=== PATIENT | female | born 1950 | race Caucasian/White ===

== ENCOUNTER → 2022-02-15 | Outpatient (CLI) | payer MEDICARE, SELFPAY ==
[2022-02-15 15:17] LABS: Absolute Lymphocyte Count 1.85 X10^3/uL (0.83-4.51); Absolute Neutrophil Count 6.4 X10^3/uL (2.0-7.7); Basophil# 0.05 X10^3/uL; Basophil% 0.6 % (0-1); Eosinophil# 0.12 X10^3/uL; Eosinophils% 1.4 % (0-5); Hematocrit 46.2 % (37-47); Lymphocyte # 1.85 X10^3/ul (0.83-4.51); Lymphocyte % 21.1 % (19-41); Mean Corp Hgb Conc 32.5 g/dL (32-36); Mean Corpuscular Hgb 27.9 pg (27.0-32.0); Mean Corpuscular Volume 85.9 fL (81-99); Monocyte# 0.35 X10^3/uL; NRBC Flagged by Analyzer 0 % (0-5); Neutrophil # 6.36 X10^3/uL (2.7-7.7); Neutrophil % 72.7 % (47-70); Platelet Count 240 K/mm3 (150-450); RBC Distribution Width CV 14.8 % (11.6-14.6); RBC Distribution Width SD 46.9 fl (35.1-43.9); Red Blood Count 5.38 M/mm3 (4.2-5.4); White Blood Count 8.8 K/mm3 (4.4-11.0)
[2022-02-15 15:38] LABS: Vitamin B12 441 pg/mL (211-911); Vitamin D,25 Hydroxy 26.7 ng/mL
[2022-02-15 15:40] LABS: ALB/GLOB Ratio 0.9 RATIO (0.9-2.4); AST(SGOT) 21 U/L (15-37); Alanine Aminotransfer ALT/SGPT 29 U/L (13-56); Albumin, Serum 3.7 g/dL (3.2-5.0); Alkaline Phosphatase 111 U/L (45-117); Anion Gap 6 (5-15); BUN 16 mg/dL (7-18); BUN/Creat Ratio 19.3 RATIO (10-20); Calcium,Total 9.7 mg/dL (8.5-10.1); Chloride 102 mmol/L (98-107); Cholesterol 136 mg/dL (200); Creatinine, Serum 0.83 mg/dL (0.55-1.02); EST Glomerular Filtration Rate 72 mL/min (>60); Est Glom Filt Rate - Afr Amer 88 mL/min (>60); Globulin 3.9 g/dL (2.2-4.2); Glucose 188 mg/dL (74-106); High Density Lipoprotein 39 mg/dL; Protein, Total 7.6 g/dL (6.4-8.2); Sodium Level 136 mmol/L (136-145); Triglycerides 137 mg/dL; Very Low Density Lipoprotein 27 mg/dL (5-40)
== END | disposition home or self-care (01) ==
PROVIDERS: PCP Family Medicine; Referring Provider Family Medicine; Visit Provider Family Medicine
DX: I10 Essential (primary) hypertension (principal); E11.9 Type 2 diabetes mellitus without complications; E78.5 Hyperlipidemia, unspecified; K21.9 Gastro-esophageal reflux disease without esophagitis; M81.0 Age-related osteoporosis without current pathological fracture
CPT/HCPCS: 36415; 80053; 80061; 82306; 82607; 85025

== ENCOUNTER → 2022-03-15 | Outpatient (CLI) | payer MEDICARE, SELFPAY | END | disposition home or self-care (01) | LOC: LABSPEC 15:14 | PROVIDERS: PCP Family Medicine; Visit Provider Family Medicine | DX: Z20.822 Contact with and (suspected) exposure to COVID-19 (principal) | CPT/HCPCS: 87635; U0003; U0005 ==

== ENCOUNTER → 2022-07-04 | Outpatient (CLI) | payer MEDICARE, SELFPAY ==
--- NOTE | 2022-07-04 11:14 | RAD_ITS ---
EXAM: XR CHEST, 2 VIEWS CLINICAL INDICATION: COUGH TECHNIQUE: Frontal and lateral views of the chest. This report was created using [employer] report generation technology. COMPARISON: None. FINDINGS: LUNGS AND PLEURAL SPACES: Unremarkable. No consolidation or edema. No pneumothorax. No effusion. HEART: Unremarkable. Cardiac silhouette not enlarged. MEDIASTINUM: Central airways and mediastinal contour are unremarkable. BONES/JOINTS: Degenerative changes of the spine. SOFT TISSUES: Unremarkable. VASCULATURE: Atherosclerotic calcifications of the nonenlarged thoracic aortic arch. RAD/Chest PA and Lateral IMPRESSION: No acute cardiopulmonary disease. Electronically Signed: Franklin Davidson MD at 0:52 EST ,
== END | disposition home or self-care (01) ==
LOC: MTRAD 11:13
PROVIDERS: PCP Family Medicine; Referring Provider Family Medicine; Visit Provider Family Medicine
DX: R05.9 Cough, unspecified (principal)
CPT/HCPCS: 71046

== ENCOUNTER 2023-03-12 20:12 | Emergency (ER) | payer MEDICARE, SELFPAY ==
[2023-03-12 20:13] VITALS: BP 168/69; PULSE 69; RESP 16; TEMP 36.4; O2SAT 99; BMI 28.3
--- NOTE | 2023-03-12 20:31 | RAD_ITS ---
STUDY: XR Hand Min 3 Views REASON FOR EXAM: Female, 73 years old. injury TECHNIQUE: XR Hand Min 3 Views LEFT COMPARISON: None. FINDINGS: Normal radiocarpal articulation. Normal distal radioulnar joint. Normal visualized carpal bones. Normal carpal articulations There is degenerative arthrosis of the carpometacarpal (CMC) articulation of the thumb. Normal second through fifth carpometacarpal joints. Fracture of the distal aspect of the fifth metacarpal bone. Normal metacarpophalangeal joint of the thumb. Normal interphalangeal joint of the thumb. Normal proximal and distal phalanges of the thumb. Normal metacarpophalangeal joints of the second through fifth fingers. Normal proximal and distal interphalangeal joints of the second through fifth fingers. Normal phalanges of the second through fifth fingers. The soft tissue structures are unremarkable. RAD/Hand Min 3 Views IMPRESSION: There is degenerative arthrosis of the carpometacarpal (CMC) articulation of the thumb. Fracture of the distal aspect of the fifth metacarpal bone. Electronically Signed: Kamran Wood MD at 21:06 EDT Reading Location ID and State: [facility] / [place] , Service support ,
--- NOTE | 2023-03-12 21:28 | EDS_ITS ---
HPI <RENETTA Olmstead - Last Filed: 03/12/23 22:05> History of Present Illness Chief Complaint: Upper Extremity Injury Narrative Narrative: Patient is a 73-year-old female with history of hypertension, obesity, diabetes who presents the emergency department after mechanical fall. Patient fell on her left arm. She did strike the front of her head however she denies any LOC and states it was minor. Patient's biggest complaint that brought her to the emergency department was pain to her left hand. She states she has pain to the left fifth and fourth fingers. Patient denies any other significant injury. Patient does have minor skin tears. [facility] <RENETTA Olmstead - Last Filed: 03/12/23 22:05> [facility] Medical History (Updated 03/12/23 @ 22:02 by RENETTA Olsmtead) Asthma Heart murmur Hypertension Ovarian cancer Type 2 diabetes mellitus Uterine cancer Home Medications oxycodone-acetaminophen 5 mg-325 mg tablet (Percocet) 1 tab PO Q8H PRN pain 3 days #10 tabs 03/12/23 [Rx Last Taken Unknown] Allergy/AdvReac Type Severity Reaction Status Date / Time matty Allergy Severe Anaphylaxis Verified 03/12/23 21:47 mushroom Allergy Severe Anaphylaxis Verified 03/12/23 21:47 fluconazole [From Diflucan] Allergy Hives Verified 03/12/23 21:47 isosorbide [From Imdur] AdvReac Other Verified 03/12/23 21:47 SURGICAL DIANE Allergy Intermediate INFECTION Uncoded 03/12/23 21:47 Social History Smoking Status: Current every day smoker tobacco type: cigarettes ROS <RENETTA Olmstead - Last Filed: 03/12/23 22:05> ROS ED ROS Narrative Constitutional: Negative for fever, chills, weight loss, weakness Eyes: Negative for vision loss, vision change, double vision ENT: Negative for any sore throat, ear pain, congestion Cardiovascular: Negative for any chest pain, tightness, palpitations Respiratory: Negative for any cough, sputum production, hemoptysis, dyspnea, dyspnea on exertion, orthopnea Gastrointestinal: Negative for any abdominal pain, nausea, vomiting, diarrhea, constipation, blood in stool, blood in vomit : Negative for any urinary frequency, dysuria, retention, blood in urine Muscle skeletal: Negative for any muscle joint pain, stiffness, myalgias, arthralgias, neck pain, back pain. Positive left hand pain Neurological: Negative for any headache, syncope, numbness or tingling, dizziness Skin: Negative for any rashes, lumps, itching, abrasions, lacerations. Positive superficial skin tears Psychiatric: Negative for any depression, anxiety, stress, suicidal ideation, homicidal ideation Hematologic: Negative for any easy bruising, excessive bruising, easy bleeding Allergies: Negative for any eczema, hives, rash EXAM <RENETTA Olmstead - Last Filed: 03/12/23 22:05> Physical Exam Narrative Exam Narrative: Vital signs reviewed. HEET: Head normocephalic atraumatic, TMs clear bilaterally. Posterior pharynx is clear, moist mucous membranes. Nares clear bilaterally. Neck: Supple with no lymphadenopathy or tenderness. No signs of meningismus, negative jolt sign. Cardiac: Regular rate and rhythm no murmurs gallops or rubs, equal peripheral pulses bilaterally. Respiratory: Lungs clear to auscultation bilaterally. No chest tenderness. Abdomen: Soft, nontender, nondistended. No abdominal bruit or pulsatile masses. No hepatosplenomegaly Extremities: Patient has significant pain to the left fifth and fourth metacarpals. Patient does have full range of motion of the fingers of this does cause significant discomfort. Patient does have skin tear to the palmar aspect of the hand as well as the left forearm. These are superficial. Patient is no neurological focal deficit. Neuro: Cranial nerves II through XII intact, no focal neurological deficits. Skin: Clean dry and intact with no rash, purpura, petechiae, vesicles or pustules. Backs/flank: No CVA tenderness, no midline spinal tenderness, no deformity. Psych: Normal mood and affect. No SI, HI or acute psychosis. Const Vital Signs: 03/12/23 20:13 Temperature 97.5 F L Temperature Source Temporal Pulse Rate 69 Respiratory Rate 16 Blood Pressure 168/69 H Blood Pressure Mean 102 Pulse Ox 99 MDM <RENETTA Olmstead - Last Filed: 03/12/23 22:05> MDM Radiography Diagnostic Testing: Clinical Impression(s) from Imaging Studies Hand X-Ray 03/12/23 20:31 IMPRESSION: There is degenerative arthrosis of the carpometacarpal (CMC) articulation of the thumb. Fracture of the distal aspect of the fifth metacarpal bone. Electronically Signed: Kamran Wood MD at 21:06 EDT , Treatment and Re-Evaluation Narrative: Patient appears generally well, patient appears nontoxic, vital signs are stable.Patient presents to the emergency department with complaints of left hand pain following a mechanical fall. Patient did receive three-view x-rays of the left hand. X-rays inter by ER physician shows that there is a degenerative arthrosis of the carpometacarpal articulation of the thumb. Patient has a fr acture of the distal aspect of the fifth metacarpal bone. There appears to be no angulation. Patient will be given Percocet. Patient will be placed in an ulnar gutter splint. Patient will need to follow-up with orthopedics. Post splint, patient did have no neurological focal deficit. Patient adequate sensation of the fingers as well as capillary refill less than 3 seconds. <Dr. Adam Cunnnigham MD - Last Filed: 03/12/23 23:39> [facility] MDM Narrative Medical decision making narrative: I have personally performed a face to face assessment of the patient and have reviewed the ROBY Note. I performed a substantive portion of the visit including all aspects of the following. My otoole findings include: History is remarkable for mechanical fall landing on her left hand. She is right-hand dominant. She denies paresthesia, anesthesia medics. She denies head trauma. Denies neck pain. She is not on anticoagulant. Exam is pain the patient over the neck of the fifth metacarpal bone left hand. There is no rotational malalignment. Median, radial and ulnar function intact. Capillary refill is normal. Medical Decision Making x-ray was obtained. X-ray was independently reviewed interpreted by me as positive for a nondisplaced nonangulated fracture involving the neck of the fifth metacarpal. Other additions or changes: Patient was placed in a short arm ulnar gutter splint. This was performed by the nurse practitioner under my supervision. Procedures <RENETTA Olmstead - Last Filed: 03/12/23 22:05> Upper Extremity Splints Upper Extremity Splint: Orthoglass and Ulnar gutter <Dr. Adam Cunningham MD - Last Filed: 03/12/23 23:39> Upper Extremity Splints Splint Fabrication: Fabricated Location: Left Discharge Plan Triage Chief Complaint: Upper Extremity Injury ED Midlevel Provider: David Pollard ED Provider: Adam Cunningham Dx/Rx/DC Orders Clinical Impression: Fall, Closed hand fracture Instructions: ED Fracture, Upper Extremity, ED Closed Hand Fracture (Adult) Prescriptions: New oxycodone-acetaminophen [Percocet] 5-325 mg tablet 1 tab PO Q8H PRN (Reason: pain) 3 Days Qty: 10 0RF Primary Care Provider: Rosa Santiago Referrals: Rosa Santiago DO [Primary Care Provider] - Jame Mane DO [Med Staff - Active Staff] - Activity Restrictions/Additional Instructions: This is a temporary cast. Need to follow-up with orthopedics this upcoming week. The pain medicine as needed. Disposition Disposition: Home, Self Care Discharge Date/Time: 03/12/23 22:37
[2023-03-12] MEDS: Oxycodone/Apap 5/325 Tablet PO (21:55)
[2023-03-12] MEDS: Diphth,Pertuss(Acell),Tet Vac 0.5 ML Vial IM (22:17)
[2023-03-12 22:20] VITALS: BP 173/60; PULSE 58; RESP 18; O2SAT 96
== END 2023-03-12 22:37 | disposition home or self-care (01) ==
PROVIDERS: Emergency Provider Emergency Medicine; PCP Family Medicine; Visit Provider Emergency Medicine
DX: S62.92XA Unspecified fracture of left hand, initial encounter for closed fracture (principal); F17.210 Nicotine dependence, cigarettes, uncomplicated; E66.9 Obesity, unspecified; W19.XXXA Unspecified fall, initial encounter
CPT/HCPCS: 29125; 73130; 90715; 99283

== ENCOUNTER → 2023-05-09 | Outpatient (CLI) | payer MEDICARE, SELFPAY ==
--- NOTE | 2023-05-09 12:47 | BI_ITS ---
MAMMOGRAPHY - BILATERAL SCREENING REASON FOR EXAM: Female, 73 years old. Routine annual screening examination. PERTINENT HISTORY: Sister with breast cancer. TECHNIQUE: Digital bilateral breast stuart (3D mammographic acquisition) in the CC and MLO projections. 2-D mediolateral oblique (MLO) and craniocaudad (CC) views of both breasts were obtained. CAD: Full Field Digital Mammography with Computer Added Detection was performed. COMPARISON: Comparison is made with prior outside examination dated April 08, 2020. FINDINGS: Breast Composition: The breasts are heterogeneously dense, which may obscure small masses. There are no dominant masses or suspicious calcifications. Stable 7.2 mm nodule in the deep upper lateral aspect of the right breast. Correlation with ultrasound is recommended. No other significant abnormalities are identified. There has been no significant change since the prior study. BI/SCRN MAMM (CAD)W/STUART BILAT IMPRESSION: Stable 7.2 mm nodule in the deep upper lateral aspect of the right breast suggestive of a small lymph node. Correlation with ultrasound is recommended. ASSESSMENT CATEGORY: BIRADS Category 0: Incomplete. Need additional imaging evaluation. A letter regarding these results will be sent to the patient by the facility within 30 days. Approximately 10% of breast cancers are not detected by mammography. A normal mammogram should not delay biopsy of a clinically suspicious abnormality. [id number] Electronically Signed: Emmanuel Lentz MD at 10:52 EDT ,
== END | disposition home or self-care (01) ==
LOC: OPBI 12:47
PROVIDERS: PCP Family Medicine; Referring Provider Nurse Practitioner Family; Visit Provider Nurse Practitioner Family
DX: Z12.31 Encounter for screening mammogram for malignant neoplasm of breast (principal); Z80.3 Family history of malignant neoplasm of breast
CPT/HCPCS: 77063; 77067

== ENCOUNTER → 2023-05-11 | Outpatient (CLI) | payer MEDICARE, SELFPAY ==
--- NOTE | 2023-05-11 13:55 | US_ITS ---
STUDY: ULTRASOUND BREAST - RIGHT REASON FOR EXAM: Female, 73 years old. Abnormal screening mammogram. TECHNIQUE: Axial and longitudinal images of the RIGHT breast were performed with a high resolution ultrasound transducer. # OF IMAGES: 26 COMPARISON: Comparison is made with prior mammogram dated May 09, 2023. FINDINGS: RIGHT Breast: The upper outer quadrant of the right breast was examined. There is a 7 mm x 9 mm x 5 mm hypoechoic nodule with central fatty hilum suggestive of a lymph node. This is at the 10:00 position breast at 13 cm from the nipple. US/Breast Limited Unilateral IMPRESSION: The mammographic abnormality corresponds to a small lymph node. ASSESSMENT CATEGORY: BIRADS Category 2: Benign. A letter regarding these results will be sent to the patient by the facility within 30 days. Electronically Signed: Emmanuel Lentz MD at 15:35 EDT ,
== END | disposition home or self-care (01) ==
LOC: OPUS 13:54
PROVIDERS: PCP Family Medicine; Referring Provider Nurse Practitioner Family; Visit Provider Nurse Practitioner Family
DX: R92.8 Other abnormal and inconclusive findings on diagnostic imaging of breast (principal); N63.11 Unspecified lump in the right breast, upper outer quadrant
CPT/HCPCS: 76642

== ENCOUNTER 2023-05-23 11:49 | Outpatient (CLI) | payer MEDICARE, SELFPAY ==
[2023-05-23 15:34] LABS: Vitamin B12 425 pg/mL (211-911)
[2023-05-23 15:40] LABS: ALB/GLOB Ratio 0.9 RATIO (0.9-2.4); AST(SGOT) 29 U/L (15-37); Alanine Aminotransfer ALT/SGPT 40 U/L (13-56); Albumin, Serum 3.6 g/dL (3.2-5.0); Alkaline Phosphatase 148 U/L (45-117); Anion Gap 5 (5-15); BUN 14 mg/dL (7-18); BUN/Creat Ratio 21.3 RATIO (10-20); Calcium,Total 9.5 mg/dL (8.5-10.1); Chloride 101 mmol/L (98-107); Cholesterol 157 mg/dL (200); Creatinine, Serum 0.66 mg/dL (0.55-1.02); EST Glomerular Filtration Rate 94 mL/min (>60); Est Glom Filt Rate - Afr Amer 114 mL/min (>60); Ferritin 29 ng/mL (8-252); Globulin 3.8 g/dL (2.2-4.2); Glucose 261 mg/dL (74-106); High Density Lipoprotein 54 mg/dL; Potassium 3.8 mmol/L (3.5-5.1); Protein, Total 7.4 g/dL (6.4-8.2); Sodium Level 135 mmol/L (136-145); Triglycerides 123 mg/dL; Very Low Density Lipoprotein 25 mg/dL (5-40)
== END 2023-05-23 23:59 | disposition home or self-care (01) ==
LOC: MFPLAB 11:50
PROVIDERS: PCP Family Medicine; Visit Provider Family Medicine
DX: E11.9 Type 2 diabetes mellitus without complications (principal); K21.9 Gastro-esophageal reflux disease without esophagitis; R79.89 Other specified abnormal findings of blood chemistry; E78.5 Hyperlipidemia, unspecified
CPT/HCPCS: 36415; 80053; 80061; 82607; 82728

== ENCOUNTER → 2023-06-22 | Outpatient (CLI) | payer MEDICARE, SELFPAY ==
--- NOTE | 2023-06-22 14:14 | BD_ITS ---
STUDY: DUAL ENERGY X-RAY ABSORPTIOMETRY / DXA REASON FOR EXAM: Female, 73 years old. M81.0 TECHNIQUE: Bone Mineral Density (BMD) measurements of lumbar spine and bilateral hips were obtained. COMPARISON: None. FINDINGS: Lumbar Spine (L1-L4): g/cm2 (0.811) / T-score (-2.1) / Z-score (0.1) Findings are suggestive of osteopenia with a high fracture risk. Left Femur Total: g/cm2 (0.759) / T-score (-1.5) / Z-score (0.1) Left Femoral Neck: g/cm2 (0.683) / T-score (-1.5) / Z-score (0.4) Right Femur Total: g/cm2 (0.765) / T-score (-1.5) / Z-score (0.2) Right Femoral Neck: g/cm2 (0.612) / T-score (-2.1) / Z-score (-0.2) BD/Dexa Bone Density Study IMPRESSION: The patient is considered osteopenic as outlined below according to World Ross Organization (WHO) criteria with a high fracture risk. Reference Information: The T-score is the number of standard deviations above or below the standard which is normal for young adults at their peak bone mineral density. The World Health Organization (WHO) interprets the T-scores as follows: Above -1 Normal bone density Between -1 and -2.5 Osteopenia Equal to / or below -2.5 Osteoporosis As a practical clinical guideline, osteopenia may be graded as follows: Mild -1 through -1.5 Moderate -1.6 through -2.0 Severe -2.1 through -2.4 The Z-score is the number of standard deviations above or below age-matched controls. A Z-score of less than -1.5 would be considered abnormal. References: 1. NIH Osteoporosis and Related Bone Diseases www osteo.org 2. International Society for Clinical Densitometry www iscd.org 3. National Osteoporosis Foundation www nof.org Electronically Signed: Emmanuel Lentz MD at 13:35 EST ,
== END | disposition home or self-care (01) ==
LOC: OPBD 14:06
PROVIDERS: PCP Family Medicine; Referring Provider Family Medicine; Visit Provider Family Medicine
DX: M81.0 Age-related osteoporosis without current pathological fracture (principal)
CPT/HCPCS: 77080

== ENCOUNTER → 2023-10-11 | Outpatient (CLI) | payer MEDICARE, SELFPAY ==
--- NOTE | 2023-10-11 14:05 | RAD_ITS ---
EXAM: XR CHEST, 2 VIEWS CLINICAL INDICATION: murmur TECHNIQUE: Frontal and lateral views of the chest. COMPARISON: 07/04/2022 FINDINGS: LUNGS AND PLEURAL SPACES: Hyperinflated lungs suggesting COPD without evidence of focal pneumonia. No pneumothorax. No effusion. HEART: No significant abnormality. Cardiac silhouette not enlarged. MEDIASTINUM: Central airways and mediastinal contour are unremarkable. BONES/JOINTS: Degenerative changes in the spine and shoulders. No acute fracture. SOFT TISSUES: No significant abnormality. VASCULATURE: Atherosclerosis. RAD/Chest PA and Lateral IMPRESSION: Hyperinflated lungs suggesting COPD without evidence of focal pneumonia. Electronically Signed: Claude Serrano DO at 23:38 EDT ,
[2023-10-11 14:38] LABS: Absolute Lymphocyte Count 2.32 X10^3/uL (0.83-4.51); Absolute Neutrophil Count 5.6 X10^3/uL (2.0-7.7); Basophil# 0.09 X10^3/uL; Eosinophil# 0.48 X10^3/uL; Eosinophils% 5.3 % (0-5); Hematocrit 43.4 % (37-47); Hemoglobin 13.7 g/dL (12.0-15.0); Lymphocyte # 2.32 X10^3/ul (0.83-4.51); Lymphocyte % 25.7 % (19-41); Mean Corp Hgb Conc 31.6 g/dL (32-36); Mean Corpuscular Hgb 27.5 pg (27.0-32.0); Mean Platelet Vol. 11.3 fl (6.2-12.0); Monocyte# 0.47 X10^3/uL; Monocyte% 5.2 % (0-10); NRBC Flagged by Analyzer 0 % (0-5); Neutrophil # 5.64 X10^3/uL (2.7-7.7); Neutrophil % 62.7 % (47-70); Platelet Count 250 K/mm3 (150-450); RBC Distribution Width CV 13.9 % (11.6-14.6); RBC Distribution Width SD 44.7 fl (35.1-43.9); Red Blood Count 4.99 M/mm3 (4.2-5.4)
[2023-10-11 14:57] LABS: Anion Gap 4 (5-15); BUN 13 mg/dL (7-18); Calcium,Total 9.4 mg/dL (8.5-10.1); Chloride 103 mmol/L (98-107); Creatinine, Serum 0.72 mg/dL (0.55-1.02); EST Glomerular Filtration Rate 84 mL/min (>60); Est Glom Filt Rate - Afr Amer 102 mL/min (>60); Glucose 126 mg/dL (74-106); Potassium 3.4 mmol/L (3.5-5.1); Sodium Level 137 mmol/L (136-145)
== END | disposition home or self-care (01) ==
PROVIDERS: PCP Family Medicine; Referring Provider Internal Medicine Cardiovascular Disease; Visit Provider Internal Medicine Cardiovascular Disease
DX: R07.9 Chest pain, unspecified (principal); R01.1 Cardiac murmur, unspecified
CPT/HCPCS: 71046; 80048; 85025

== ENCOUNTER 2023-10-14 00:05 | Emergency (ER) | payer MEDICARE, SELFPAY ==
[2023-10-14 00:07] VITALS: BP 170/94; PULSE 74; RESP 16; TEMP 36.8; O2SAT 95; BMI 33.3
--- NOTE | 2023-10-14 00:39 | CT_ITS ---
INDICATION: head injury EXAMINATION: CT BRAIN - CT Head or Brain W/O Contrast Injection TECHNIQUE: Serial CT axial images were obtained of the head without intravenous contrast. A radiation dose optimization technique was used for this scan. COMPARISON: None. Findings: Serial CT axial images of the head without contrast. BRAIN PARENCHYMA: Diffuse periventricular hypoattenuation likely chronic white matter ischemic changes. Moderate diffuse volume loss. No evidence of intraparenchymal hemorrhage or hyperattenuating extra-axial fluid collection. VASCULAR STRUCTURES: Atherosclerotic vascular calcifications. BONES: Paranasal sinuses are clear. SCALP/REMAINING SOFT TISSUES: Right frontal scalp hematoma. ASPECTS Score for Acute Strokes, if applicable: 10 CT/Brain/Head without Contrast IMPRESSION: Age-related changes as above, without evidence of acute intracranial hemorrhage in this noncontrast head CT. Scalp injury. Electronically Signed: Mack Alvarez MD at 1:39 EDT ,
--- NOTE | 2023-10-14 01:13 | EDS_ITS ---
HPI History of Present Illness Chief Complaint: Fall Informant: patient, spouse/S.O. and family Narrative Narrative: Patient is a 73-year-old female with past medical history of asthma hypertension and type 2 diabetes. She states roughly half hour prior to arrival she was walking into her bathroom when she tripped and fell. She states she struck the bathroom floor with her head/face. She denies any loss of consciousness. She denies any history of bleeding disorder or blood thinner use and states she only takes a baby aspirin daily. Since that time she reports mild headache and bruising/soft tissue swelling but denies light sensitivity change in vision or nausea or vomiting. She also states she was able to ambulate without difficulty but secondary to the fall with head trauma there was concern for underlying injury and she was brought in for evaluation [facility] Medical History Asthma Chest pain H/O esophageal reflux Heart murmur Hernia of abdominal cavity History of ankle fracture History of fracture of right ankle Hx of myocardial infarction Hypertension Migraine Morbid obesity Nonalcoholic liver disease, chronic Osteoporosis Ovarian cancer Syncope and collapse Type 2 diabetes mellitus Urge incontinence Uterine cancer Home Medications aspirin 81 mg tablet,delayed release 81 mg PO DAILY 03/16/23 [History Last Taken Unknown] albuterol sulfate 90 mcg/actuation aerosol inhaler 2 puff inhalation Q6H PRN 09/15/23 [History Last Taken Unknown] atorvastatin 40 mg tablet 40 mg PO DAILY 09/15/23 [History Last Taken Unknown] cholecalciferol (vitamin D3) 125 mcg (5,000 unit) capsule 125 mcg PO DAILY 09/15/23 [History Last Taken Unknown] insulin aspart U-100 100 unit/mL subcutaneous solution (Novolog U-100 Insulin aspart) 1 sliding scale dose subcut USEASDIRECTD 09/15/23 [History Last Taken Unknown] insulin degludec 100 unit/mL (3 mL) subcutaneous pen (Tresiba FlexTouch U-100 insulin) 13 unit subcut QHS 09/15/23 [History Last Taken Unknown] losartan 50 mg-hydrochlorothiazide 12.5 mg tablet 1 tab PO DAILY 09/15/23 [History Last Taken Unknown] oxybutynin chloride 10 mg tablet,extended release 24 hr 10 mg PO DAILY 09/15/23 [History Last Taken Unknown] pantoprazole 40 mg tablet,delayed release 40 mg PO DAILY 09/15/23 [History Last Taken Unknown] propranolol 20 mg tablet 20 mg PO DAILY PRN 09/15/23 [History Last Taken Unknown] sertraline 50 mg tablet 50 mg PO DAILY 09/15/23 [History Last Taken Unknown] potassium chloride 10 mEq capsule,extended release 10 meq PO DAILY #90 caps 10/11/23 [Rx Last Taken Unknown] vitamins A,C,F-okqe-rqqmsp 4,296 mcg-226 mg-90 mg capsule (PreserVision AREDS) 1 cap PO BID 10/11/23 [History Last Taken Unknown] azithromycin 250 mg tablet (Zithromax Z-Donny) See Rx Instructions PO .COMPLEX #6 tabs 10/13/23 [Rx Last Taken Unknown] Allergy/AdvReac Type Severity Reaction Status Date / Time matty Allergy Severe Anaphylaxis Verified 10/14/23 00:07 mushroom Allergy Severe Anaphylaxis Verified 10/14/23 00:07 fluconazole [From Diflucan] Allergy Hives Verified 10/14/23 00:07 isosorbide [From Imdur] AdvReac Other Verified 10/14/23 00:07 SURGICAL DIANE Allergy Intermediate INFECTION Uncoded 10/11/23 13:03 Family History Other Cancer Hypertension Myocardial infarction Surgical History History of cataract extraction Social History Smoking Status: Light Smoker (<10/day) alcohol intake: never ROS ROS ED Constitutional Constitutional ED: Denies chills or fever(s) Eyes Eyes: Denies blurry vision, change in vision or diplopia ENT ENT ED: Denies sore throat Cardiovascular Cardiovascular: Denies chest pain, palpitations or racing heartbeat Respiratory/Chest Respiratory/Chest: Denies cough or dyspnea Gastrointestinal Gastrointestinal: Denies abdominal pain, diarrhea, nausea or vomiting Genitourinary Genitourinary ED: Denies dysuria Musculoskeletal Musculoskeletal: Denies back pain, myalgias or neck pain Integumentary Reports other Details: Positive soft tissue swelling/bruising ; Denies rash Neurologic Neurologic: Reports headache(s); Denies paresthesias or weakness Hematologic/Lymphatic Hematologic/Lymphatic: Denies easy bleeding or easy bruising EXAM Physical Exam Const Vital Signs: 10/14/23 00:07 10/14/23 00:07 10/14/23 01:37 Temperature 98.2 F 98.3 F Temperature Source Temporal Pulse Rate 74 89 Respiratory Rate 16 12 Respiratory Effort Normal Respiratory Depth Normal Respiratory Pattern Normal Blood Pressure 170/94 H 133/69 H Blood Pressure Mean 119 90 Pulse Ox 95 100 Oxygen Delivery Method Room Air Room Air Positive well nourished and well developed General Appearance ED: well developed HEENT HEENT Narrative: Patient has a 2 x 2 centimeter area of hematoma and ecchymosis just above the right eye along the lower right frontal bone. This is consistent with her history of fall/trauma. Otherwise no signs of depressed or basilar skull fracture No septal hematoma Eyes PERRL and EOMs intact bilaterally Eyes Narrative: No hyphema Neck supple Neck Narrative: No bony deformity or step-off of the cervical spine no midline pain with palpation Patient can move her neck in all directions without pain Chest Wall palpation of chest normal Chest Narrative: No bony deformity or crepitance noted Resp normal respiratory effort and clear to auscultation bilaterally Cardio regular rate and regular rhythm Rate: other Other Details: Heart is regular rate and rhythm with a grade 4 out of 6 holosystolic murmur GI normal to inspection, nondistended, normoactive bowel sounds, non-tender, non- distended and no masses Auscultation: normoactive bowel sounds Palpation: soft Back/Spine Back/Spine Narrative: No bony deformity or step-off of the thoracic or lumbar spine No midline pain on palpation Extremity normal to inspection Extremity Narrative: Pelvis is stable there is no shortening or external rotation of either lower extremity Patient has mild soft tissue swelling ecchymosis to the anterior aspect of the left knee. However no obvious bony deformity or joint effusion. No ligamentous or tendon injury noted. No pain on palpation Patient is able to move all extremities without difficulty or pain Neuro oriented x3, CN's II-XII intact bilaterally and no sensory deficits noted Sensorium / Orientation: alert Motor Exam: strength 5/5 throughout Psych mental status grossly normal Skin Skin Narrative: Soft tissue swelling ecchymosis to the right forehead/frontal bone as documented above MDM MDM MDM Narrative Medical decision making narrative: Patient presented to the ER hypertensive but has a past medical history of this. She reported a mechanical fall and therefore there is no need for a cardiac or syncope workup. Differential diagnosis is for skull fracture versus subdural or epidural hematoma versus soft tissue hematoma and closed head injury. Secondary to this a CT was obtained. CT revealed soft tissue swelling consistent with soft tissue hematoma but no signs of acute trauma. Therefore there is no need for further workup and patient is otherwise safe for discharge History & Record Review Discussion w/independent historian: Patient and Family Radiography Diagnostic Testing: Clinical Impression(s) from Imaging Studies Brain CT 10/14/23 00:39 IMPRESSION: Age-related changes as above, without evidence of acute intracranial hemorrhage in this noncontrast head CT. Scalp injury. Electronically Signed: Mack Alvarez MD at 1:39 EDT , Discharge Plan Triage Chief Complaint: Fall Other Complaint: Head Injury ED Provider: Franklin Jean Dx/Rx/DC Orders Clinical Impression: Traumatic hematoma of forehead, Closed head injury, Type 2 diabetes mellitus, Hypertension Instructions: ED Head Injury (Adult), ED Hematoma Prescriptions: No Action aspirin 81 mg tablet,delayed release (DR/EC) 81 mg PO DAILY pantoprazole 40 mg tablet,delayed release (DR/EC) 40 mg PO DAILY atorvastatin 40 mg tablet 40 mg PO DAILY losartan-hydrochlorothiazide 50-12.5 mg tablet 1 tab PO DAILY insulin degludec [Tresiba FlexTouch U-100] 100 unit/mL (3 mL) insulin pen 13 unit subcut QHS Patient Comments: INJECT 13 UNITS SUBCUTANEOUSLY EVERY DAY AT BEDTIME sertraline 50 mg tablet 50 mg PO DAILY propranolol 20 mg tablet 20 mg PO DAILY PRN Patient Comments: TAKE 1 TABLET BY MOUTH ONCE DAILY NEEDED FOR ANXIETY PreserVision AREDS 4,296 mcg-226 mg-90 mg capsule 1 cap PO BID oxybutynin chloride 10 mg tablet extended release 24hr 10 mg PO DAILY insulin aspart U-100 [Novolog U-100 Insulin aspart] 100 unit/mL solution 1 sliding scale dose subcut USEASDIRECTD albuterol sulfate 90 mcg/actuation HFA aerosol inhaler 2 puff inhalation Q6H PRN cholecalciferol (vitamin D3) 125 mcg (5,000 unit) capsule 125 mcg PO DAILY potassium chloride 10 mEq capsule, extended release 10 meq PO DAILY Qty: 90 3RF azithromycin [Zithromax Z-Donny] 250 mg tablet See Rx Instructions PO .COMPLEX Qty: 6 0RF Rx Instructions: For 250 mg dose pack: take 500 mg today (day 1), then 250 mg for 4 days (days 2-5) PO Primary Care Provider: Terri Munoz Referrals: Terri Munoz MD [Primary Care Provider] - Activity Restrictions/Additional Instructions: Your CAT scan showed no sign of skull fracture or brain bleed. Ice the area to reduce pain and speed healing and return to the ER should you have any further concerns Disposition Disposition: Home, Self Care Discharge Date/Time: 10/14/23 01:39
[2023-10-14] MEDS: HYDROcodone Bitartrate/Apap 5/325 Tablet PO (01:32)
[2023-10-14 01:37] VITALS: BP 133/69; PULSE 89; RESP 12; TEMP 36.8; O2SAT 100
== END 2023-10-14 01:39 | disposition home or self-care (01) ==
PROVIDERS: Emergency Provider Emergency Medicine; PCP Family Medicine; Visit Provider Emergency Medicine
DX: S00.83XA Contusion of other part of head, initial encounter (principal); E11.9 Type 2 diabetes mellitus without complications; Z79.4 Long term (current) use of insulin; I10 Essential (primary) hypertension; W18.09XA Striking against other object with subsequent fall, initial encounter; J45.909 Unspecified asthma, uncomplicated; F17.200 Nicotine dependence, unspecified, uncomplicated; Z79.82 Long term (current) use of aspirin; Z79.899 Other long term (current) drug therapy
CPT/HCPCS: 70450; 99282

== ENCOUNTER → 2023-11-09 | Outpatient (CLI) | payer MEDICARE, SELFPAY ==
--- NOTE | 2023-11-09 13:29 | ECHOD_ITS ---
Reason For Study: Syncope Procedure This was a 2D Doppler, Color Flow transthoracic echocardiogram. Exam performed in department. Left Ventricle Normal LV size. Left ventricular systolic function is normal. The estimated ejection fraction is 65 %. Stage 1 diastolic dysfunction. No regional wall motion abnormalities noted. Right Ventricle Normal RV size. Normal systolic function. Atria Normal left atrium. Normal right atrium. Mitral Valve Normal mitral valve. Tricuspid Valve Normal tricuspid valve. Aortic Valve Trisinus/trileaflet aortic valve. Mild focal aortic valve calcification. Peak aortic valve gradient 42 mmHg. Mean aortic valve gradient 22 mmHg. Mild (1+) aortic valve insufficiency. Pulmonic Valve Normal pulmonic valve. Great Vessels Normal aortic root. The pulmonary artery is normal size. Normal inferior vena cava. Pericardium/Pleural No pericardial effusion. MMode/2D Measurements & Calculations LVIDd: 4.9 cm IVSd: 1.4 cm LVOT diam: 2.0 cm LVIDs: 3.0 cm LVPWd: 1.0 cm LVOT area: 3.1 cm2 FS: 37.2 % Ao root diam: 3.5 cm LAV(MOD-bp): 59.8 ml LA A4 area: 19.5 cm2 LA dimension: 4.4 cm LAV(MOD-bp) Indexed: 32.9 ml/m2 LAV(MOD-sp2): 57.9 ml LAV(MOD-sp4): 62.2 ml TAPSE: 2.0 cm RA A4 area: 12.4 cm2 Time Measurements MV dec time: 0.44 sec Doppler Measurements & Calculations MV E max matthew: 75.2 cm/sec Lat Peak E' Matthew: 4.0 cm/sec Med Peak E' Matthew: 3.3 cm/sec MV A max matthew: 142.2 cm/sec E/E' lat: 19.0 E/E' med: 22.9 MV E/A: 0.53 MV V2 max: 180.7 cm/sec MV P1/2t max matthew: 103.9 cm/sec Ao V2 max: 324.4 cm/sec MV max P.1 mmHg MV P1/2t: 161.7 msec Ao max P.1 mmHg MV V2 mean: 81.3 cm/sec MV dec slope: 188.2 cm/sec2 Ao V2 mean: 218.9 cm/sec MV mean P.2 mmHg Ao mean P.1 mmHg MV V2 VTI: 47.0 cm MVA(P1/2t): 1.4 cm2 Ao V2 VTI: 74.3 cm MVA(VTI): 1.7 cm2 AV (velocity ratio): 0.34 MAURICIO(I,D): 1.1 cm2 MAURICIO(V,D): 1.0 cm2 AI max matthew: 359.6 cm/sec LV V1 max: 104.3 cm/sec SV(LVOT): 79.7 ml AI max P.7 mmHg LV V1 max P.4 mmHg LV V1 mean P.6 mmHg AI dec slope: 135.8 cm/sec2 LV V1 mean: 77.1 cm/sec AI P1/2t: 775.9 msec LV V1 VTI: 25.5 cm PA V2 max: 97.0 cm/sec ECHO/Echo Complete Interpretation Summary Normal LV size. Left ventricular systolic function is normal. The estimated ejection fraction is 65 %. Stage 1 diastolic dysfunction. Mean aortic valve gradient 22 mmHg. Mild (1+) aortic valve insufficiency. Ordering Physician: Inocencio Loera Referring Physician: Inocencio Loera Performed By: Juventino Moise RCS
== END | disposition home or self-care (01) ==
LOC: CVS 13:25
PROVIDERS: PCP Family Medicine; Referring Provider Internal Medicine Cardiovascular Disease; Visit Provider Internal Medicine Cardiovascular Disease
DX: R55 Syncope and collapse (principal)
CPT/HCPCS: 93306

== ENCOUNTER 2024-02-15 11:30 | Outpatient (RCR) | payer MEDICARE, SELFPAY ==
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
--- NOTE | 2024-04-09 13:18 | HP.PT.NRP ---
Patient Information Patient Information: OLESYA FLAHERTY was seen in my office for initial evaluation on 01/17/24. The following Plan of Care was established for this patient: POC Established Initial Frequency: 2x /Week Initial Duration: 4-6 Weeks Anticipated Interventions Patient/Client Instruction: Educate patient on: Condition and Plan of Care For the Purpose of:: To improve nutrient delivery to tissue, To improve muscle performance and motor function, To increase tolerance to activity/condition/position, To improve ability of physical actions for home/community/work/leisure, To improve gait and locomotor functions and To improve balance Therapeutic Exercise to Include: Strength training, Balance training, Postural training, Flexibilty training, Gait and locomotor training, Passive ROM and Active ROM For the Purpose of:: To increase ROM, To improve nutrient delivery to tissue, To improve muscle performance and motor function, To increase tolerance to activity/condition/position, To improve ability of physical actions for home/community/work/leisure and To improve safety with gait Last Seen Last Seen: This patient was last seen in our office 02/15/24. Pertinent comments regarding their Physical therapy will appear below: Pt seen 7 visits of POC but cancelled the latest without rescheduling. At this point it has been over 6 weeks and I will discontinue due to nonattendance. At this point I will be discontinuing this patient from physical therapy. I would be happy to see this patient again in the future if found appropriate by the physician. Thank you! Jogre Rivera, DPT, OCS, CSCS Balance/Gait/Functional tests Balance/Special Test Scores Functional Gait Assessment Score: 17 % Disability: 43.3400 CATSIB Score (Max score 120 seconds): 86 Lower Extremity Functional Score: 30 TUG Test Time Seconds: 19 Tug Test: <20 sec.=mostly independent 30 Second Chair Rise Test Seconds: 7
== END 2024-02-15 19:00 | disposition home or self-care (01) ==
LOC: PT 11:30
PROVIDERS: PCP Family Medicine; Referring Provider Family Medicine; Visit Provider Family Medicine
DX: Z91.81 History of falling (principal)
CPT/HCPCS: 97110; 97162

== ENCOUNTER 2024-02-29 02:37 | Inpatient (IN) | payer MEDICARE, SELFPAY ==
[2024-02-29] VITALS (12 sets, daily range): BP systolic 98–156; BP diastolic 52–87; PULSE 65–92; RESP 16–20; TEMP 36.2–36.9; O2SAT 90–100; BMI 32.8; BMI 31.6
--- NOTE | 2024-02-29 03:10 | RAD_ITS ---
INDICATION: chest pain EXAMINATION/TECHNIQUE: X-RAY - XR Chest 2 Views COMPARISON: Prior study dated: 10/11/2023 FINDINGS: LINES/DEVICES: None. LUNGS: The lungs are well expanded. No consolidation, edema or effusion. No pneumothorax. Linear left basilar atelectasis. MEDIASTINUM AND CARDIOVASCULAR STRUCTURES: Cardiac silhouette not enlarged. Aortic calcifications. Central airways and mediastinal contour are unremarkable. BONES AND SOFT TISSUES: No acute abnormality. Degenerative changes of the spine. RAD/Chest PA and Lateral IMPRESSION: No acute pulmonary finding. Electronically Signed: Trev Lopez MD at 5:24 EDT ,
[2024-02-29] MEDS: Ondansetron 4 MG/2 ML Vial IV ×2 (03:24→10:33)
[2024-02-29] MEDS: Morphine 4 MG/ML Syringe IV (03:24)
[2024-02-29] MEDS: Orphenadrine 60 MG/2 ML Ampul IV (03:24)
--- NOTE | 2024-02-29 03:34 | ED.RN ---
pt administered medications per orders on SEP, pts O2 sats decrease to 73% on room air. pt given supplemental oxygen at 4L via nasal cannula, once pts o2 sats return to normal, o2 decreased to 2L nasal cannula for comfort. Dr. Jean made aware.
[2024-02-29 03:35] LABS: Absolute Lymphocyte Count 1.53 X10^3/uL (0.83-4.51); Absolute Neutrophil Count 8.7 X10^3/uL (2.0-7.7); Basophil# 0.06 X10^3/uL; Basophil% 0.5 % (0-1); Eosinophil# 0.22 X10^3/uL; Hematocrit 42.7 % (37-47); Hemoglobin 13.8 g/dL (12.0-15.0); Lymphocyte # 1.53 X10^3/ul (0.83-4.51); Lymphocyte % 13.7 % (19-41); Mean Corp Hgb Conc 32.3 g/dL (32-36); Mean Corpuscular Hgb 27.8 pg (27.0-32.0); Mean Corpuscular Volume 86.1 fL (81-99); Mean Platelet Vol. 12.3 fl (6.2-12.0); Monocyte# 0.56 X10^3/uL; NRBC Flagged by Analyzer 0 % (0-5); Neutrophil # 8.72 X10^3/uL (2.7-7.7); Neutrophil % 78.4 % (47-70); Platelet Count 225 K/mm3 (150-450); RBC Distribution Width CV 13.8 % (11.6-14.6); RBC Distribution Width SD 43.5 fl (35.1-43.9); Red Blood Count 4.96 M/mm3 (4.2-5.4); White Blood Count 11.1 K/mm3 (4.4-11.0)
[2024-02-29 04:23] LABS: Anion Gap 11 (5-15); BUN 13 mg/dL (7-18); BUN/Creat Ratio 17.7 RATIO (10-20); Calcium,Total 9.7 mg/dL (8.5-10.1); Chloride 101 mmol/L (98-107); Creatinine, Serum 0.74 mg/dL (0.55-1.02); EST Glomerular Filtration Rate 82 mL/min (>60); Est Glom Filt Rate - Afr Amer 100 mL/min (>60); Glucose 358 mg/dL (74-106); Magnesium 1.6 mg/dL (1.6-2.6); Potassium 3.6 mmol/L (3.5-5.1); Sodium Level 138 mmol/L (136-145); Troponin-I HS 1629 pg/mL (3.0-54.0)
[2024-02-29 04:31] LABS: D-Dimer Quantitative (DVT/PE) 0.61 FEU/ug/m (0.27-0.49)
[2024-02-29 04:37] LABS: Prothrombin Time (Protime)PT. 13.5 SECONDS (11.7-14.9)
[2024-02-29 04:38] LABS: Partial Thromboplast Time 26.6 Seconds (24.1-36.2)
[2024-02-29] MEDS: Aspirin 325 MG Tablet PO (04:54)
[2024-02-29] MEDS: HEPARIN/D5w 25,000 UNITS 25,000 UNITS/250 ML IV.SOLN. 9 UNITS CONT INF (05:11)
--- NOTE | 2024-02-29 05:11 | PCM.HP.STD ---
[facility] - General General Date of Admission: 02/29/24 Date of Service: 02/29/24 Chief Complaint: Chest Pain and SOB. HPI Narrative OLESYA FLAHERTY, is a 73 F with a past medical history of essential hypertension, hyperlipidemia, obesity; with BMI of 32.8 this admission, CAD; s/p mild NJ's x 2 with [facility] in the without stent placement and currently not followed by cardiology, history of MARSH, DM-2; of unknown control, history of uterine cancer, history of asthma, history of syncope, urge incontinence, migraine headaches, depression, GERD, OA, history of Right ankle fracture and listed allergy to ISMO who presents to [facility] ER complaining of chest pain and SOB. Ms. Flaherty reports her symptoms began approximately one hour prior to arrival when she experienced the abrupt-onset of chest pain while getting ready for bed with chest pain that was substernal, sharp, severe and radiating across her entire chest and it also seemed to worsen with deep breathing with nothing seeming to make the pain better. She denies recent traumatic injury, strenuous physical activity, recent illness or known sick contacts. She also denies associated fever, chills, nausea, vomiting or diaphoresis but she was concerned about possible NJ because of her cardiac history so she decided to come in for further evaluation and treatment. Her sister and [id number] In the ER she was noted to have an elevated troponin of 1,629 pg/mL present on admission followed by a second elevated troponin of 4,161 pg/mL consistent with NSTEMI and she was then admitted to the PCU for ongoing care for a stay that is expected to extend beyond 2 midnights. [facility] Medical History History of fracture of right ankle Hx of myocardial infarction Chest pain Syncope and collapse Urge incontinence Osteoporosis Morbid obesity Migraine Hernia of abdominal cavity Nonalcoholic liver disease, chronic H/O esophageal reflux History of ankle fracture Uterine cancer Ovarian cancer Heart murmur Hypertension Type 2 diabetes mellitus Asthma Home Medications ?Medication ?Instructions ?Recorded ?Last Taken ?Type aspirin 81 mg tablet,delayed 81 mg PO DAILY cholesterol 03/16/23 Unknown History release albuterol sulfate 90 mcg/actuation 2 puff inhalation Q6H PRN asthma 09/15/23 Unknown History aerosol inhaler atorvastatin 40 mg tablet 40 mg PO DAILY cholesterol 09/15/23 Unknown History cholecalciferol (vitamin D3) 125 125 mcg PO DAILY supplement 09/15/23 Unknown History mcg (5,000 unit) capsule insulin aspart U-100 100 unit/mL 1 sliding scale dose subcut 09/15/23 Unknown History subcutaneous solution (Novolog USEASDIRECTD diabetes U-100 Insulin aspart) insulin degludec 100 unit/mL (3 13 unit subcut QHS diabetes 09/15/23 Unknown History mL) subcutaneous pen (Tresiba FlexTouch U-100 insulin) losartan 50 mg-hydrochlorothiazide 1 tab PO DAILY BP 09/15/23 Unknown History 12.5 mg tablet oxybutynin chloride 10 mg 10 mg PO DAILY bladder 09/15/23 Unknown History tablet,extended release 24 hr pantoprazole 40 mg tablet,delayed 40 mg PO DAILY emely 09/15/23 Unknown History release propranolol 20 mg tablet 20 mg PO DAILY PRN blood pressure 09/15/23 Unknown History sertraline 50 mg tablet 50 mg PO DAILY depression 09/15/23 Unknown History potassium chloride 10 mEq 10 meq PO DAILY #90 caps 10/11/23 Unknown Rx capsule,extended release vitamins A,C,G-yfjq-ojtqgs 4,296 1 cap PO BID supplement 10/11/23 Unknown History mcg-226 mg-90 mg capsule (PreserVision AREDS) Allergy/AdvReac Type Severity Reaction Status Date / Time matty Allergy Severe Anaphylaxis Verified 10/14/23 00:07 mushroom Allergy Severe Anaphylaxis Verified 10/14/23 00:07 fluconazole (From Diflucan) Allergy Hives Verified 10/14/23 00:07 isosorbide (From Imdur) AdvReac Other Verified 10/14/23 00:07 SURGICAL DIANE Allergy Intermediate INFECTION Uncoded 10/11/23 13:03 Family History Other Cancer Hypertension Myocardial infarction Surgical History History of cataract extraction Social History Smoking Status: Light Smoker (<10/day) alcohol intake: never ROS ROS Narrative Review of systems: General: Patient denies fever or chills. HENT: Denies headache, denies stuffy nose, denies sore throat EYES: Denies changes in vision or discharge from eyes. Resp: Denies cough, denies shortness of breath Cardiac: Patient admits to chest pain but she denies palpitations or heart racing. GI: Denies abdominal pain, denies changes in bowel, denies nausea or vomiting. : Denies changes in urination Extremity: Denies swelling Musculoskeletal: Feels somewhat generally weak and unwell but denies arthralgias or myalgias. Neuro: Patient denies headache, paresthesias or focal neurologic deficits. Heme: Denies any bleeding or bruising Skin: Denies rashes Psychiatric: No complaints voiced related uncontrolled depression or anxiety. Endocrine: No polyuria, polydipsia or polyphagia. The rest of the 14 point ROS was negative except for positives in HPI. Vital Signs Vital Signs Vital Signs: 02/29/24 02:38 02/29/24 02:44 02/29/24 04:37 Temperature 98.2 F Temperature Source Oral Pulse Rate 92 86 Respiratory Rate 18 20 H Respiratory Effort Normal Non-Labored Respiratory Depth Normal Blood Pressure 156/81 H 130/73 H Blood Pressure Mean 106 92 Pulse Ox 97 94 Oxygen Delivery Method Room Air Room Air Room Air Weight Weight: 173 lb 9.6 oz Body Mass Index (BMI) 32.8 Physical Exam Const alert, oriented x3 and no apparent distress Constitutional Narrative: Obese General Appearance: cooperative HEENT normocephalic, head/scalp atraumatic, hearing grossly normal bilaterally and moist oral mucous membranes Eyes PERRL and EOMs intact bilaterally Neck no lymphadenopathy and supple Resp normal respiratory effort, no retractions, no use of accessory muscles and clear to auscultation bilaterally Cardio regular rate and regular rhythm GI normal to inspection, nondistended, normoactive bowel sounds, soft to palpation, non-tender and non-distended Extremity normal to inspection and full ROM Skin Skin Narrative: Patient has no evidence of rash, abscess or jaundice. Neuro oriented x3, CN's II-XII intact bilaterally, moves all extremities and no focal motor deficits Sensorium / Orientation: awake, alert, oriented to person, oriented to place and oriented to time Speech: speech normal Psych affect normal Results Medical Records Data Attestation: I reviewed the patient's medical records Lab / Micro Data Attestation: I reviewed the patient's lab results. 02/29/24 03:30 02/29/24 03:30 Labs: Laboratory Results - last 24 hr 02/29/24 03:30: WBC 11.1 H, RBC 4.96, Hgb 13.8, Hct 42.7, MCV 86.1, MCH 27.8, MCHC 32.3, RDW Std Deviation 43.5, RDW Coeff of Fatoumata 13.8, Plt Count 225, MPV 12.3 H, Immature Gran % (Auto) 0.400, Neut % (Auto) 78.4 H, Lymph % (Auto) 13.7 L, Clay % (Auto) 5.0, Eos % (Auto) 2.0, Baso % (Auto) 0.5, Absolute Neuts (auto) 8.7 H, Absolute Lymphs (auto) 1.53, Nucleated RBC % 0, PT 13.5, INR 1.0, APTT 26.6, D-Dimer Quant (PE/DVT) 0.61 H*, Sodium 138, Potassium 3.6, Chloride 101, Carbon Dioxide 26.0, Anion Gap 11, BUN 13, Creatinine 0.74, Est GFR (MDRD) Af Amer 100, Est GFR (MDRD) Non-Af 82, BUN/Creatinine Ratio 17.7, Glucose 358 H, Calcium 9.7, Magnesium 1.6, Troponin I High Sens 1629 H* Assessment & Plan Assessment/Plan (1) Non-STEMI (non-ST elevated myocardial infarction): (2) Hx of myocardial infarction: (3) Hyperlipidemia: QUALIFIERS: Hyperlipidemia type: unspecified Qualified Code(s): E78.5 - Hyperlipidemia, unspecified (4) Obesity (BMI 30.0-34.9): (5) Type 2 diabetes mellitus: QUALIFIERS: Diabetes mellitus complication detail: with other circulatory complications Diabetes mellitus complication status: with circulatory complication Diabetes mellitus intermediate frame tender insulin use: with chcf use Qualified Code(s): E11.59 - Type 2 diabetes mellitus with other circulatory complications; Z79.4 - watermaster (current) use of insulin PLAN: Plan 1. NSTEMI; evidenced by initial troponin of 1,629 pg/mL present on admission followed by a second elevated troponin of 4,161 pg/mL in the setting of known CAD; with previous NJ and listed allergy to ISMO - Admit to PCU. Continue ECASA and IV Heparin begun in the ER plus start Plavix and statin. Check echocardiogram to evaluate LVEF. Give Tylenol prn for [id number] (level 1-5/10) pain or fever. Give Morphine IV prn for severe (level 6-10/10) pain. Finally, we will consult bag cutter on-call to see this patient on-rounds in the AM for further recommendations regarding [facility] this admission with help appreciated in advance. 2. Essential hypertension - Continue home regimen plus give prn IV Hydralazine for systolic blood pressure > 160 mmHg. 3. Hyperlipidemia - Resume statin and check Lipid Profile in light of #1. 4. Obesity; with BMI of 32.8 this admission - Weight loss will be recommended. 5. History of MARSH - Stable. 6. DM-2; of unknown control - ADA diet. FSBS q. AC/HS plus SSI. Check HgbA1c to objectively assess quality of diabetic control. 7. History of uterine cancer - Noted. 8. History of asthma - Stable with no evidence of flare. Give prn nebulizers. 9. History of syncope - Noted. 10. Urge incontinence - Continue current treatment. 11. Migraine headaches - Stable with no headache at this time. 12. Depression - Resume home regimen. 13. GERD - Continue PPI. 14. OA - Stable. 15. History of Right ankle fracture - Noted. 16. DVT prophylaxis - Patient on IV Heparin for #1. Total time: Approximately 75 minutes. Charges/Coding Visit Charges Inpatient E&M: 63240 Init Hosp L3
[2024-02-29] MEDS: Heparin Injection (Vial) 5,000 UNIT/ML VIAL 4000 UNIT IV (05:12)
--- NOTE | 2024-02-29 05:16 | EX.ED.DYSGE1 ---
HPI History of Present Illness Chief Complaint: Shortness of Breath Informant: patient and family Narrative Narrative: Patient is a 73-year-old female with past medical history of insulin-dependent diabetes hypertension hyperlipidemia as well as remote history of CAD requiring heart cath in the late . She states she does not follow with a supervisor home restoration service. She reports that she felt normal throughout the day on Monday and then in the evening she went to lay down for bed and at that time began feeling sharp chest pain that she states began on the right and left side of her chest that would radiate inward when she took her breath. She denies any recent trauma or excessive physical activity and she denies any sick symptoms or known sick contacts. She reports that there is no nausea vomiting or diaphoresis associated with this. However because of of her remote history of CAD there was concern this could be cardiac in nature and she was brought in for evaluation [facility] Medical History Asthma Chest pain H/O esophageal reflux Heart murmur Hernia of abdominal cavity History of ankle fracture History of fracture of right ankle Hx of myocardial infarction Hypertension Migraine Morbid obesity Nonalcoholic liver disease, chronic Osteoporosis Ovarian cancer Syncope and collapse Type 2 diabetes mellitus Urge incontinence Uterine cancer Home Medications ?Medication ?Instructions ?Recorded ?Last Taken ?Type aspirin 81 mg tablet,delayed 81 mg PO DAILY 03/16/23 Unknown History release albuterol sulfate 90 mcg/actuation 2 puff inhalation Q6H PRN 09/15/23 Unknown History aerosol inhaler atorvastatin 40 mg tablet 40 mg PO DAILY 09/15/23 Unknown History cholecalciferol (vitamin D3) 125 125 mcg PO DAILY 09/15/23 Unknown History mcg (5,000 unit) capsule insulin aspart U-100 100 unit/mL 1 sliding scale dose subcut 09/15/23 Unknown History subcutaneous solution (Novolog USEASDIRECTD U-100 Insulin aspart) insulin degludec 100 unit/mL (3 13 unit subcut QHS 09/15/23 Unknown History mL) subcutaneous pen (Tresiba FlexTouch U-100 insulin) losartan 50 mg-hydrochlorothiazide 1 tab PO DAILY 09/15/23 Unknown History 12.5 mg tablet oxybutynin chloride 10 mg 10 mg PO DAILY 09/15/23 Unknown History tablet,extended release 24 hr pantoprazole 40 mg tablet,delayed 40 mg PO DAILY 09/15/23 Unknown History release propranolol 20 mg tablet 20 mg PO DAILY PRN 09/15/23 Unknown History sertraline 50 mg tablet 50 mg PO DAILY 09/15/23 Unknown History potassium chloride 10 mEq 10 meq PO DAILY #90 caps 10/11/23 Unknown Rx capsule,extended release vitamins A,C,H-lxla-famkvi 4,296 1 cap PO BID 10/11/23 Unknown History mcg-226 mg-90 mg capsule (PreserVision AREDS) azithromycin 250 mg tablet See Rx Instructions PO .COMPLEX #6 10/13/23 Unknown Rx (Zithromax Z-Donny) tabs Allergy/AdvReac Type Severity Reaction Status Date / Time matty Allergy Severe Anaphylaxis Verified 10/14/23 00:07 mushroom Allergy Severe Anaphylaxis Verified 10/14/23 00:07 fluconazole (From Diflucan) Allergy Hives Verified 10/14/23 00:07 isosorbide (From Imdur) AdvReac Other Verified 10/14/23 00:07 SURGICAL DIANE Allergy Intermediate INFECTION Uncoded 10/11/23 13:03 Family History Other Cancer Hypertension Myocardial infarction Surgical History History of cataract extraction Social History Smoking Status: Light Smoker (<10/day) alcohol intake: never ROS ROS ED Constitutional Constitutional ED: Denies chills or fever(s) Eyes Eyes: Denies blurry vision or change in vision ENT ENT ED: Denies sore throat Cardiovascular Cardiovascular: Reports chest pain; Denies palpitations or racing heartbeat Respiratory/Chest Respiratory/Chest: Denies cough or dyspnea Gastrointestinal Gastrointestinal: Denies abdominal pain, diarrhea, nausea or vomiting Genitourinary Genitourinary ED: Denies dysuria Musculoskeletal Musculoskeletal: Denies back pain Integumentary Denies rash Neurologic Neurologic: Denies headache(s) Hematologic/Lymphatic Hematologic/Lymphatic: Denies easy bleeding or easy bruising EXAM Physical Exam Const Vital Signs: 02/29/24 02:38 02/29/24 02:44 02/29/24 04:37 Temperature 98.2 F Temperature Source Oral Pulse Rate 92 86 Respiratory Rate 18 20 H Respiratory Effort Normal Non-Labored Respiratory Depth Normal Blood Pressure 156/81 H 130/73 H Blood Pressure Mean 106 92 Pulse Ox 97 94 Oxygen Delivery Method Room Air Room Air Room Air Positive well nourished, well developed and obese General Appearance ED: well developed; Negative for pallor Nutritional Appearance: obese HEENT HEENT Narrative: No tongue or lip swelling no oral lesions no airway edema or compromise Eyes PERRL and EOMs intact bilaterally General Eye ED: Negative for scleral icterus Neck supple and no JVD Chest Wall Chest Narrative: There is reproducible anterior chest wall pain with palpation that the patient states is the same pain she has been experiencing No bony deformity or crepitus noted Resp normal respiratory effort and clear to auscultation bilaterally Resp Narrative: Breath sounds are diminished throughout but overall clear to auscultation without nasal flaring retractions tachypnea or accessory muscle use Cardio regular rate and regular rhythm Rate: other Other Details: Heart is regular rate and rhythm with a grade 3 out of 6 systolic murmur GI normal to inspection, nondistended, normoactive bowel sounds, non-tender, non-distended and no masses GI Narrative: No voluntary guarding or rigidity or pulsatile mass Auscultation: normoactive bowel sounds Palpation: soft Extremity normal to inspection Extremity Narrative: No asymmetric edema no pitting edema negative Homans' sign bilaterally Neuro oriented x3, CN's II-XII intact bilaterally and no sensory deficits noted Sensorium / Orientation: alert Motor Exam: strength 5/5 throughout Psych mental status grossly normal Skin no rashes or lesions noted General Skin Exam: Negative for jaundice or pallor MDM MDM MDM Narrative Medical decision making narrative: Patient arrived to the ER hypertensive but otherwise with stable vitals. She reported atypical cardiac pain and the fact she was sharp and stabbing and radiating from the left and right chest towards the center and occurring with inspiration but not causing her to develop nausea vomiting diaphoresis or shortness of breath. As differential diagnosis is for abnormal cardiac rhythm versus acute coronary syndrome versus pulmonary embolus versus pneumonia I did elect to perform basic laboratory studies with a D-dimer and a chest x-ray. X-ray revealed no acute lung pathology. The patient's D-dimer was normal for her age as it is less then 0.72 and this goes against pulmonary embolus or dissection. The patient's EKG shows a bifascicular block which is similar to the EKG she had in September of this year. However her troponin came back grossly elevated at approximately 1600 indicating patient has a non-STEMI. Secondary to this she was given a full-strength aspirin and started on a heparin bolus and drip. She reports an allergy to isosorbide mononitrate and therefore no nitroglycerin was given. As the patient will need her troponins monitored and she will most likely need a heart cath secondary to her risk factors and elevated troponin medicine was contacted and they do agree to accept the patient for further care at this time History & Record Review Discussion w/independent historian: Patient and Family Lab Data Attestation: I reviewed the patient's lab results. Labs: Laboratory Results - last 24 hr 02/29/24 03:30 WBC 11.1 H RBC 4.96 Hgb 13.8 Hct 42.7 MCV 86.1 MCH 27.8 MCHC 32.3 RDW Std Deviation 43.5 RDW Coeff of Fatoumata 13.8 Plt Count 225 MPV 12.3 H Immature Gran % (Auto) 0.400 Neut % (Auto) 78.4 H Lymph % (Auto) 13.7 L Woodward % (Auto) 5.0 Eos % (Auto) 2.0 Baso % (Auto) 0.5 Absolute Neuts (auto) 8.7 H Absolute Lymphs (auto) 1.53 Nucleated RBC % 0 PT 13.5 INR 1.0 APTT 26.6 D-Dimer Quant (PE/DVT) 0.61 H* Sodium 138 Potassium 3.6 Chloride 101 Carbon Dioxide 26.0 Anion Gap 11 BUN 13 Creatinine 0.74 Est GFR (MDRD) Af Amer 100 Est GFR (MDRD) Non-Af 82 BUN/Creatinine Ratio 17.7 Glucose 358 H Calcium 9.7 Magnesium 1.6 Troponin I High Sens 1629 H* Radiography Diagnostic Testing: Chest x-ray as interpreted by the emergency medicine physician reveals no acute infiltrate pneumothorax or pleural effusion Management Discussion w/another healthcare provider: Hospitalist Critical Care Time Critical Care Time: Yes Critical care time (excluding procedures): Discussing w/Patient &/or Family/Wet Trimmer and - (Please note critical care time of 31 minutes) Discharge Plan Dx/Rx/DC Orders Clinical Impression: Non-STEMI (non-ST elevated myocardial infarction), Type 2 diabetes mellitus, Hypertension, Hyperlipidemia Disposition Disposition: Acute Care Hospital [facility]
--- NOTE | 2024-02-29 05:58 | EKG12_ITS ---
Test Reason : Blood Pressure : / mmHG Vent. Rate : 083 BPM Atrial Rate : 083 BPM P-R Int : 138 ms QRS Dur : 134 ms QT Int : 378 ms P-R-T Axes : 062 -70 003 degrees QTc Int : 444 ms Normal sinus rhythm Right bundle branch block Left anterior fascicular block Bifascicular block Minimal voltage criteria for LVH, may be normal variant ( R in aVL ) Septal infarct , age undetermined T wave abnormality, consider lateral ischemia Abnormal ECG No previous ECGs available Confirmed by Priyank Agustin ([id number]), video editor GARRETT BONDS ([id number]) on 03/04/2024 9:29:37 AM Referred By: Confirmed By:Priyank Agustin
--- NOTE | 2024-02-29 06:30 | ECHOD_ITS ---
Reason For Study: S/P [place] Procedure This was a 2D Doppler, Color Flow transthoracic echocardiogram. Exam performed portable in patient room. Left Ventricle Normal LV size. Mild concentric left ventricular hypertrophy. Severe apical hypokinesis. Estimated LVEF 50%. Stage II diastolic dysfunction. Right Ventricle Normal right ventricle. Atria The left atrium is moderately enlarged. Normal right atrium. Mitral Valve Mild-Moderate (1-2+) mitral valve insufficiency. Tricuspid Valve Moderate (2+) tricuspid valve insufficiency. Right ventricular systolic pressure estimated to be 69 mmHg. Aortic Valve Mildly calcified aortic valve. Moderate aortic valve stenosis with mild aortic valve regurgitation. Pulmonic Valve The pulmonic valve is not well visualized. Great Vessels Normal sized aortic root. Pericardium/Pleural No pericardial effusion. MMode/2D Measurements & Calculations LVIDd: 4.7 cm IVSd: 1.3 cm LVOT diam: 2.0 cm LVIDs: 3.0 cm LVPWd: 1.1 cm LVOT area: 3.2 cm2 FS: 37.6 % Ao root diam: 3.1 cm LAV(MOD-bp): 58.2 ml LA A4 area: 18.2 cm2 LAV(MOD-bp) Indexed: 33.3 ml/m2 LAV(MOD-sp2): 55.6 ml LAV(MOD-sp4): 57.2 ml LA dimension(2D): 4.4 cm TAPSE: 2.3 cm RA A4 area: 13.4 cm2 Doppler Measurements & Calculations MV E max matthew: 79.9 cm/sec Lat Peak E' Matthew: 3.4 cm/sec MV V2 max: 200.9 cm/sec MV A max matthew: 177.6 cm/sec E/E' lat: 23.8 MV max P.1 mmHg MV E/A: 0.45 MV V2 mean: 98.0 cm/sec MV mean P.0 mmHg MV V2 VTI: 33.8 cm MVA(VTI): 1.9 cm2 Ao V2 max: 324.7 cm/sec AI max matthew: 392.5 cm/sec LV V1 max: 103.5 cm/sec Ao max P.2 mmHg AI max P.6 mmHg LV V1 max P.3 mmHg Ao V2 mean: 232.3 cm/sec AI dec slope: 287.9 cm/sec2 LV V1 mean P.5 mmHg Ao mean P.5 mmHg AI P1/2t: 399.3 msec LV V1 mean: 75.2 cm/sec Ao V2 VTI: 66.8 cm LV V1 VTI: 20.8 cm AV (velocity ratio): 0.31 MAURICIO(I,D): 0.99 cm2 MAURICIO(V,D): 1.0 cm2 SV(LVOT): 65.8 ml PA V2 max: 112.4 cm/sec TR max matthew: 402.4 cm/sec PA V2 mean: 74.6 cm/sec TR max P.8 mmHg ECHO/Echo Complete Interpretation Summary Mild concentric left ventricular hypertrophy. Severe apical hypokinesis. Estimated LVEF 50%. Stage II diastolic dysfunction. The left atrium is moderately enlarged. Mild-Moderate (1-2+) mitral valve insufficiency. Right ventricular systolic pressure estimated to be 69 mmHg. Mildly calcified aortic valve. Moderate aortic valve stenosis with mild aortic valve regurgitation. Ordering Physician: Uche Voss Referring Physician: Terri Munoz Performed By: Kika Mera, NATALEE, RVT
[2024-02-29 06:31] LABS: Troponin-I HS 4161 pg/mL (3.0-54.0)
--- NOTE | 2024-02-29 08:15 | PCM.PN.HOSP ---
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 Objective Data Objective Data Vital Signs: Vital Signs Temp Pulse Resp BP Pulse Ox O2 Del Method 36.9 C 88 17 102/52 L 97 Room Air 02/29/24 06:40 02/29/24 06:40 02/29/24 06:40 02/29/24 06:40 02/29/24 06:40 02/29/24 06:40 Oxygen Delivery Method Room Air Weight: 75.9 kg Body Mass Index (BMI) 31.6 Intake & Output: Intake and Output for Last 24 Hours 02/27/24 02/28/24 02/29/24 23:59 23:59 23:59 Intake Total 0 / 0 Balance 0 / 0 Lab / Micro Data 02/29/24 03:30 02/29/24 03:30 Labs: Laboratory Results - last 24 hr 02/29/24 03:30: WBC 11.1 H, RBC 4.96, Hgb 13.8, Hct 42.7, MCV 86.1, MCH 27.8, MCHC 32.3, RDW Std Deviation 43.5, RDW Coeff of Fatoumata 13.8, Plt Count 225, MPV 12.3 H, Immature Gran % (Auto) 0.400, Neut % (Auto) 78.4 H, Lymph % (Auto) 13.7 L, Dooly % (Auto) 5.0, Eos % (Auto) 2.0, Baso % (Auto) 0.5, Absolute Neuts (auto) 8.7 H, Absolute Lymphs (auto) 1.53, Nucleated RBC % 0, PT 13.5, INR 1.0, APTT 26.6, D-Dimer Quant (PE/DVT) 0.61 H*, Sodium 138, Potassium 3.6, Chloride 101, Carbon Dioxide 26.0, Anion Gap 11, BUN 13, Creatinine 0.74, Est GFR (MDRD) Af Amer 100, Est GFR (MDRD) Non-Af 82, BUN/Creatinine Ratio 17.7, Glucose 358 H, Calcium 9.7, Magnesium 1.6, Troponin I High Sens 1629 H* 02/29/24 05:40: Troponin I High Sens 4161 H* Radiography Diagnostic Testing: Radiology Impression Chest X-Ray 02/29/24 03:10 IMPRESSION: No acute pulmonary finding. Electronically Signed: Trev Lopez MD at 5:24 EDT , Physical Exam Const alert and no apparent distress Resp normal respiratory effort, no retractions, no use of accessory muscles and clear to auscultation bilaterally Cardio regular rate, regular rhythm, S1 normal heart sound and S2 normal heart sound GI normal to inspection, nondistended, normoactive bowel sounds, soft to palpation, non-tender and non-distended Extremity normal to inspection, full ROM and no clubbing, cyanosis or edema Neuro Sensorium / Orientation: awake and alert Psych affect normal Assessment & Plan Assessment/Plan (1) Non-STEMI (non-ST elevated myocardial infarction): (2) Hx of myocardial infarction: (3) Hyperlipidemia: QUALIFIERS: Hyperlipidemia type: unspecified Qualified Code(s): E78.5 - Hyperlipidemia, unspecified (4) Obesity (BMI 30.0-34.9): (5) Type 2 diabetes mellitus: QUALIFIERS: Diabetes mellitus complication detail: with other circulatory complications Diabetes mellitus complication status: with circulatory complication 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 ASA. Heparin gtt. ASA, Clopidogrel and statin. cardiology consult. Echo shows an EF 50% with severe apical hypokinesis. RVSP 69mmHg. (EF 65% on 11/12/23) Chronic conditions: Essential hypertension - Continue home regimen plus give prn IV Hydralazine for systolic blood pressure > 160 mmHg. Hyperlipidemia - Resume statin and check Lipid Profile in light of #1. Obesity; with BMI of 32.8 this admission - Weight loss will be recommended. History of MARSH - Stable. DM-2; of unknown control - ADA diet. SSI check an a1c. History of uterine cancer - Noted. history of asthma - Stable with no evidence of flare. Give prn nebulizers. History of syncope - Noted. VTE prophylaxis: not indicated as already anticoagulated. Charges/Coding Procedures Hospitalists Procedures: Other Procedure - See Report (Nonbillable rounding as patient was admitted after midnight.)
[2024-02-29 08:19] LABS: Bedside Glucose 375 mg/dL (74-106)
[2024-02-29] MEDS: Clopidogrel Bisulfate 75 MG Tablet PO (09:10)
[2024-02-29] MEDS: Losartan Potassium 50 MG Tablet PO (09:11)
[2024-02-29] MEDS: Insulin Lispro 100 UNIT/ML INSULN.PEN SC ×3 (09:12→21:20)
[2024-02-29 09:44] LABS: Troponin-I HS 4030 pg/mL (3.0-54.0)
--- NOTE | 2024-02-29 09:58 | PCM.CONS.C ---
Assessment & Plan Assessment/Plan (1) Non-STEMI (non-ST elevated myocardial infarction): PLAN: Presently pain-free. Recommend coronary angiography with possible revascularization. Risks benefits and alternatives discussed. Patient understands and wishes to proceed. (2) Hyperlipidemia: QUALIFIERS: Hyperlipidemia type: unspecified Qualified Code(s): E78.5 - Hyperlipidemia, unspecified PLAN: Atorvastatin. (3) Hypertension: PLAN: Hydrochlorothiazide and losartan. 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 (5) Nicotine dependence: PLAN: Counseled to quit. HPI Consult Data Date of Consult: 02/29/24 HPI Narrative Reason for Consultation: NSTEMI HPI Narrative: 73-year-old lady with past medical history significant for dyslipidemia, diabetes mellitus, asthma and hypertension. Presented to the emergency room with complaints of chest discomfort that started last night. Per patient, the pain was sharp. Radiated towards the center of the chest. No radiation to the arm neck or jaw. No previous history of coronary artery disease. Per patient, she has had coronary angiography done in the late however she was told that she had no blockages. Patient's workup revealed elevated troponins ruling her in for NSTEMI. [facility] Medical History History of fracture of right ankle Hx of myocardial infarction Chest pain Syncope and collapse Urge incontinence Osteoporosis Morbid obesity Migraine Hernia of abdominal cavity Nonalcoholic liver disease, chronic H/O esophageal reflux History of ankle fracture Uterine cancer Ovarian cancer Heart murmur Hypertension Type 2 diabetes mellitus Asthma Home Medications ?Medication ?Instructions ?Recorded ?Last Taken ?Type aspirin 81 mg tablet,delayed 81 mg PO DAILY cholesterol 03/16/23 Unknown History release albuterol sulfate 90 mcg/actuation 2 puff inhalation Q6H PRN asthma 09/15/23 Unknown History aerosol inhaler atorvastatin 40 mg tablet 40 mg PO DAILY cholesterol 09/15/23 Unknown History cholecalciferol (vitamin D3) 125 125 mcg PO DAILY supplement 09/15/23 Unknown History mcg (5,000 unit) capsule insulin aspart U-100 100 unit/mL 1 sliding scale dose subcut 09/15/23 Unknown History subcutaneous solution (Novolog USEASDIRECTD diabetes U-100 Insulin aspart) insulin degludec 100 unit/mL (3 13 unit subcut [facility] diabetes 09/15/23 Unknown History mL) subcutaneous pen (Tresiba FlexTouch U-100 insulin) losartan 50 mg-hydrochlorothiazide 1 tab PO DAILY BP 09/15/23 Unknown History 12.5 mg tablet oxybutynin chloride 10 mg 10 mg PO DAILY bladder 09/15/23 Unknown History tablet,extended release 24 hr pantoprazole 40 mg tablet,delayed 40 mg PO DAILY emely 09/15/23 Unknown History release propranolol 20 mg tablet 20 mg PO DAILY PRN blood pressure 09/15/23 Unknown History sertraline 50 mg tablet 50 mg PO DAILY depression 09/15/23 Unknown History potassium chloride 10 mEq 10 meq PO DAILY #90 caps 10/11/23 Unknown Rx capsule,extended release vitamins A,C,E-pkzb-sbibxw 4,296 1 cap PO BID supplement 10/11/23 Unknown History mcg-226 mg-90 mg capsule (PreserVision AREDS) Allergy/AdvReac Type Severity Reaction Status Date / Time matty Allergy Severe Anaphylaxis Verified 10/14/23 00:07 mushroom Allergy Severe Anaphylaxis Verified 10/14/23 00:07 fluconazole (From Diflucan) Allergy Hives Verified 10/14/23 00:07 isosorbide (From Imdur) AdvReac Other Verified 10/14/23 00:07 SURGICAL DIANE Allergy Intermediate INFECTION Uncoded 10/11/23 13:03 Family History Other Cancer Hypertension Myocardial infarction Surgical History History of cataract extraction Social History Smoking Status: Light Smoker (<10/day) alcohol intake: never Physical Exam Narrative Comfortable. No apparent distress. Heart sounds 1 and 2 are noted. 2/6 systolic murmur at base. Chest examination reveals decreased breath sounds bilaterally. Alert oriented x 3. No ankle edema. Risk Stratification Risk Stratification Applicable: No Objective Data Vital Signs: Vital Signs Temp Pulse Resp BP Pulse Ox O2 Del Method 98.5 F 88 17 102/52 L 97 Room Air 02/29/24 06:40 02/29/24 06:40 02/29/24 06:40 02/29/24 06:40 02/29/24 06:40 02/29/24 08:00 Oxygen Delivery Method Room Air Weight: 167 lb 5.294 oz Body Mass Index (BMI) 31.6 Intake & Output: Intake and Output for Last 24 Hours 02/27/24 02/28/24 02/29/24 23:59 23:59 23:59 Intake Total 0 / 0 Balance 0 / 0 Lab / Micro Data 02/29/24 03:30 02/29/24 03:30 Labs: Laboratory Results - last 24 hr 02/29/24 03:30: WBC 11.1 H, RBC 4.96, Hgb 13.8, Hct 42.7, MCV 86.1, MCH 27.8, MCHC 32.3, RDW Std Deviation 43.5, RDW Coeff of Fatoumata 13.8, Plt Count 225, MPV 12.3 H, Immature Gran % (Auto) 0.400, Neut % (Auto) 78.4 H, Lymph % (Auto) 13.7 L, Jones % (Auto) 5.0, Eos % (Auto) 2.0, Baso % (Auto) 0.5, Absolute Neuts (auto) 8.7 H, Absolute Lymphs (auto) 1.53, Nucleated RBC % 0, PT 13.5, INR 1.0, APTT 26.6, D-Dimer Quant (PE/DVT) 0.61 H*, Sodium 138, Potassium 3.6, Chloride 101, Carbon Dioxide 26.0, Anion Gap 11, BUN 13, Creatinine 0.74, Est GFR (MDRD) Af Amer 100, Est GFR (MDRD) Non-Af 82, BUN/Creatinine Ratio 17.7, Glucose 358 H, Calcium 9.7, Magnesium 1.6, Troponin I High Sens 1629 H* 02/29/24 05:40: Troponin I High Sens 4161 H* 02/29/24 07:59: POC Glucose 375 H 02/29/24 09:02: Troponin I High Sens 4030 H* Rhythm Strip Rhythm Strip: Sinus Rhythm Cardiology Labs/Tests 02/29/24 03:30: WBC 11.1 H, RBC 4.96, Hgb 13.8, Hct 42.7, MCV 86.1, MCH 27.8, MCHC 32.3, Plt Count 225, MPV 12.3 H, Immature Gran % (Auto) 0.400, Neut % (Auto) 78.4 H, Lymph % (Auto) 13.7 L, Jones % (Auto) 5.0, Eos % (Auto) 2.0, Baso % (Auto) 0.5, Absolute Neuts (auto) 8.7 H, Nucleated RBC % 0, PT 13.5, INR 1.0, APTT 26.6, D-Dimer Quant (PE/DVT) 0.61 H*, Sodium 138, Potassium 3.6, Chloride 101, Carbon Dioxide 26.0, Anion Gap 11, BUN 13, Creatinine 0.74, Est GFR (MDRD) Af Amer 100, Est GFR (MDRD) Non-Af 82, BUN/Creatinine Ratio 17.7, Glucose 358 H, Calcium 9.7, Magnesium 1.6 Rhythm: ECG shows sinus rhythm with right bundle branch block and left anterior fascicular block. Bifascicular block. EKG: ECHO: Stress Test: Cardiac Cath: PCI: CT Surgery: Holter monitor: EPS: PPM: CXR: Chest CT Scan: Radiography Diagnostic Testing: Radiology Impression Chest X-Ray 02/29/24 03:10 IMPRESSION: No acute pulmonary finding. Electronically Signed: Trev Lopez MD at 5:24 EDT Reading Location ID and State: [address] [place] [address] Tel , Service support ,
--- NOTE | 2024-02-29 10:30 | CASEMGMT ---
RN CM Face to Face with patient for initial transition planning/care coordination assessment. RN CM introduced self and role at [facility]. Patient lying in bed, alert and oriented, sister and [id number] at bedside. Patient willing to participate in assessment and is able to answer all questions appropriately. Care providers, pharmacy, and demographics verified. Strata: 2 PCP: Tammy Specialists: none [facility]erred Pharmacy: [facility] Insurance: [employer] [facility] Prescription Benefit: yes Living Will/HPOA: none [place]: [place] Living Arrangements: Patient lives with sister and GIGI in a 2 story home with bed and bath on first floor. Patient is independent at home. Transportation: [place] DME/HHC: Patient states she has walker, cane, wheelchair, grab bars, and shower chair at home. Patient denies previous HHC or SNF Patient wishes to discharge home, denies need for home health at this time. Patient states she has no further needs or concerns at this time. CM to follow for discharge planning needs that may arise. Disposition Plan: Patient to discharge home with family support and follow-up plans in place. Clarissa BROOKS, RN, CM
[2024-02-29] MEDS: 0.9% Saline Lock 10 ML Syringe IV ×2 (10:33→21:22)
[2024-02-29 11:19] LABS: Partial Thromboplast Time 57.3 Seconds (24.1-36.2)
[2024-02-29 12:10] LABS: Bedside Glucose 159 mg/dL (74-106)
--- NOTE | 2024-02-29 13:30 | EKG12_ITS ---
Test Reason : POST PCI Blood Pressure : / mmHG Vent. Rate : 068 BPM Atrial Rate : 075 BPM P-R Int : 000 ms QRS Dur : 142 ms QT Int : 444 ms P-R-T Axes : 000 -59 -31 degrees QTc Int : 472 ms Accelerated Junctional rhythm Right bundle branch block Left anterior fascicular block Bifascicular block Septal infarct , age undetermined T wave abnormality, consider lateral ischemia Abnormal ECG Confirmed by Priyank Agustin ([id number]), editor school photograph GARRETT BONDS ([id number]) on 03/04/2024 9:30:48 AM Referred By: DR GALLARDO Confirmed By:Priyank Agustin
[2024-02-29 13:39] LABS: ACT Activated Clotting Time 287 sec (74-137)
[2024-02-29 13:39] LABS: ACT Activated Clotting Time 232 sec (74-137)
--- NOTE | 2024-02-29 13:39 | CL.I_ITS ---
Patient Name: OLESYA FLAHERTY Study Date: 02/29/2024 Performing: Silvia Pizarro MD Ht: 61 inches 154.94 cm : 1950 Wt: 167.33 lbs 75.9 kg Age: 73 Gender: female BSA: 1.75 PROCEDURE(S) PERFORMED DC02-(38235)LHC/COR IC12-(23406/C9600)ROMEL W/WO PTCA, SINGLE CORONARY ARTERY CLINICAL PROFILE AND CO-MORBIDITIES Indications: ACS <= 24 hrs Heart Failure: None Angina Classification Anginal Classification w/in 2 Weeks: CCS IV CAD Presentations: Non-STEMI. CONCLUSIONS 95% Prox LAD 70% Prox OM1, small 1.5 mm vessel post-dilated using 3.25 mm balloon RECOMMENDATIONS ASA Indefinitley Plavix for at least 12 months Risk factor modification DESCRIPTION OF PROCEDURE The patient arrived to the procedure lab. The risks and benefits of the procedure as well as a full description of our services here and lack of surgical backup were fully explained to the patient and/or their significant other prior to the catheterization. The Timeout was completed, verifying the correct patient and procedure. The patient's procedural site was prepped and draped in the usual fashion. Local anesthetic was given subcutaneously to right radial region with Lidocaine 2%. Using a modified Seldinger technique, arterial access was obtained via the right radial artery, a 6Fr sheath was inserted.. Left Coronary Artery selective angiography was performed in multiple views using a 5 Fr. 4.0 [place] catheter. Right Coronary Artery selective angiography was then performed in multiple views using a 5 Fr. 4.0 [place] catheterThe images were reviewed and options discussed. A decision was then made to proceed with an Intervention, IVUS or other adjunct procedure. XB 3.0 Guide catheter was inserted and engaged into the LCA. Runthrough Guide wire was advanced to the LAD. 2.5 x 20 Emerge Balloon catheter was inserted. Balloon catheter was advanced across lesion in the LAD, proximal. PTCA balloon inflated at 10 atms for 15 secs. PTCA balloon inflated at 10 atms for 10 secs. 3.0 x 30 Walker Drug Eluting stent was inserted. Drug Eluting stent was advanced across the lesion in the LAD, proximal. 3 x 20 NC Emerge Balloon catheter was inserted post stent. 3.25 x 12 NC Emerge Balloon catheter was inserted post stent. Angiogram performed post stent deployment. The arterial sheath was pulled and a TR Band was applied for hemostasis. 12cc air CORONARY ANGIOGRAPHY DOMINANCE: Right Dominant LEFT MAIN: Calcified 20% Ostial lesion in LMCA LEFT ANTERIOR DESCENDING ARTERY: LAD: Calcified 95% Proximal lesion in LAD OM 1: Calcified 70% Ostial lesion in MARG1 OM 2: Calcified 70% Ostial lesion in MARG1 RAMUS: Diffuse Calcified 50% Proximal lesion in Ramus RIGHT CORONARY ARTERY: RCA: Calcified 50% Proximal lesion in RCA Tubular 50% Mid lesion in RCA INTERVENTION INFORMATION LESION SITE: LAD (Proximal) Lesion Complexity: High/C, lesion length: 28 mm, culprit lesion: Yes Pre Stenosis: 95 % Pre intervention GERARDO flow: 3 PROCEDURE: Drug Eluting Stent with pre and post dilatation Post Stenosis: 0 % Post intervention GERARDO flow: 3 Lesion Devices: Terumo .014 180cm Runthrough Extra Floppy straight Cordis 6 Fr XB3.0 100cm Guide Catheter Charanjit Sci EMERGE MR 2.50x20 BALLOON Medtronic 3.0 x 30 KARINA FRONTIER ROMEL Charanjit Sci NC EMERGE MR 3.00x20 BALLOON Charanjit Sci NC EMERGE MR 3.25x12 BALLOON COMPLICATIONS No Complications PROCEDURE MEDICATIONS Fentanyl 50 mcg IV Versed 1 mg IV Fentanyl 50 mcg IV Oxygen: 2 L/min via nasal cannula Brilinta 180 mg PO @ 02/29/2024 12:46:48 Heparin given IA 02/29/2024 12:34:16 Heparin 5000 unit(s) IV 02/29/2024 12:45:47 Verapamil 2.5mg, 2000 units of Heparin given IA 02/29/2024 12:34:16 IV Bolus: .9 NaCl 250 ml total 02/29/2024 13:16:50 SUMMARY OF HEMODYNAMIC DATA Time AIR REST ECG 12:15:29 AO 106/61 (79) SA 12:37:25 AO 115/63 (82) 12:48:49 AIR REST 13:38:10 Signed By Silvia Pizarro MD On 02/29/2024 13:38:32 Silvia Pizarro MD
--- NOTE | 2024-02-29 15:40 | CRPHASE1_ITS ---
Patient Communication Patient Information PHII Cardiac Rehab Discussed with Patient:: Yes Guide to Cardiac Rehab Given to Patient:: Yes Cardiac Rehab Facility Choice List Given to Patient:: Yes Communication to Cardiac Rehab Choice Program [facility] CR PHII:: Communication Given to CR Director Executive Communications:: Silvia Pizarro Phase II Cardiac Rehab:: Yes Sessions:: 36 sessions - 3 days/wk, 12 weeks Cardiac Rehabilitation Info Program Information Cardiac Rehabilitation Program Information: Cardiac Rehab The cardiac rehab team at [facility] consists of highly skilled exercise physiologists, nurses, respiratory therapists and physicians working together with you. Our purpose is to help you have a full recovery and achieve the goals you set for yourself. Over the years many of our patients have returned to activities they assumed they would never do again! We can help restore your confidence and motivation to make lifestyle changes that can have a significant impact on your health and quality of life! We can help answer questions and concerns you may have about exercise, lifestyle, medications, diet, stress and anxiety which are common following a hospitalization. WE monitor ECG and vital signs during exercise and discuss your progress with you and report to your physician(s). Cardiac Rehab is proven to help reduce readmissions, improve functional capacity and lower recurrence of problems with your heart. Our Cardiac Rehab program is Certified by the [place] [employer]-Vascular and Pulmonary Rehabilitation (AACVPR) and Accredited by the [employer] through our [facility]. You can contact us at . We invite you to call us with your questions or to get started in our program. If you have other questions or concerns be sure to ask your physician/provider during your follow-up visit. WE look forward to seeing you!
--- NOTE | 2024-02-29 15:41 | CRPH1.INST_ITS ---
General Education Discussed with Patient CAD and cardiac anatomy and function:: Patient communicates acknowledgment Explanation of diagnoses and procedures:: Patient communicates acknowledgment Sign/Symptoms of OK:: Patient communicates acknowledgment Antiplatelet therapy: Patient communicates acknowledgment Proper use of NTG-SL: Patient communicates acknowledgment Emergency procedures and activation of EMS: Patient communicates acknowledgment Compliance of all prescribed medications: Patient communicates acknowledgment Smoking Risk Factors Patient Nicotine/Smoking Risk Factors Are:: Cigarettes Recommendations Recommendations Include:: Smoking cessation strategies/Smoking packet, Second- hand smoke recommendation and Participation in a smoking cessation program Response Code Nicotine/Smoking Response Code:: Patient communicates acknowledgment Dyslipidemia Risk Factors Patient Dyslipidemia Risk Factors Are:: Total Cholesterol, Triglycerides, HDL and LDL Recommendations Recommendations Include:: Lipid profile not available, Reviewed NCEP/ATP guidelines and Therapeutic Lifestyle Change dietary guidelines Response Code Dyslipidemia Response Code:: Patient communicates acknowledgment Overweight/Obesity Risk Factors Patient Overweight/Obesity Risk Factors Are:: Obesity - > or = 30 Recommendations Recommendations Include:: Weight loss of 5-10%, Reduced calorie diet and Exercise 5-7 times/week Response Code Overweight/Obesity:: Patient communicates acknowledgment, Family communicates acknowledgment, Patient returns demonstration and Family returns demonstration Hypertension Recommendations Recommendations Include:: BP <130/80 if diabetic, DASH dietary guidelines, Decrease/maintain normal body weight and Moderation of ETOH Response Code Hypertension:: Patient communicates acknowledgment Heart Disease Risk Factors Patient Heart Disease Risk Factors Are:: Previous cardiac event Recommendations Recommendations Include:: Educated family members of their risk and Educated family members of importance of prevention of heart disease Response Code Heart Disease Response Code:: Patient communicates acknowledgment Diabetes Risk Factors Patient Diabetes Risk Factors Are:: Elevated blood sugars Recommendations Recommendations Include:: Maintain fasting blood sugars 70-110 md/dL, Maintain HgbA1c of 6% or less, Monitor blood sugar as prescribed, Diabetic dietary guidelines and Decrease/maintain body weight Response Code Diabetes:: Patient communicates acknowledgment Metabolic Syndrome Risk Factors Patient Metabolic Syndrome Risk Factors Are [3 of 5]:: Fasting blood sugar > 100 mg/dL, Waist circumference > 35 [female] or 40 [male], High triglyceride >150, Hypertension and Low HDL <40 [male] or < 50 [female] Recommendations Recommendations Include:: Reinforce compliance to risk factor modifications, Patient is diabetic and Encouraged follow-up with Primary Care Physician Response Code Metabolic Syndrome Response Code:: Patient communicates acknowledgment Sedentary Risk Factors Patient Sedentary Risk Factors Are:: Lack of regular exercise Recommendations Recommendations Include:: Aerobic exercise 5-7 times/week for 20-30 minutes continuously, Benefits of regular exercise, Discussed home walking program and Monitored Outpatient Cardiac Rehab Response Code Sedentary Response Code:: Patient communicates acknowledgment Stress Recommendations Recommendations Include:: Identification of stressors, and assessment of coping skills and Stress management techniques Response Code Stress Response Code:: Patient communicates acknowledgment
[2024-02-29 16:39] LABS: Bedside Glucose 228 mg/dL (74-106)
[2024-02-29] MEDS: hydroCHLOROthiazide 12.5mg 12.5 MG PO (16:43)
[2024-02-29] MEDS: Potassium Chloride Oral Tablet 10 MEQ PO (16:43)
[2024-02-29] MEDS: Multivitamin (Healthy Eyes) Capsule 1 CAP PO ×2 (16:44→21:19)
[2024-02-29] MEDS: Pantoprazole Sodium 40 MG Tablet PO (16:44)
[2024-02-29] MEDS: Tolterodine Tartrate 2 MG CAP.SA PO (16:44)
[2024-02-29] MEDS: Cholecalciferol (Vit D3) 125 MCG CAPSULE (5,000 UNITS) PO (16:44)
[2024-02-29] MEDS: Sertraline 50 MG Tablet PO (16:45)
[2024-02-29] MEDS: Clopidogrel Bisulfate 300 MG Tablet PO (18:28)
[2024-02-29 19:46] LABS: Hemoglobin A1c 9.5 % (3.8-5.6)
[2024-02-29] MEDS: Carvedilol 3.125 MG TABLET PO (21:19)
[2024-02-29] MEDS: Insulin Glargine-YFGN 100 UNIT/ML Pen 8 UNIT SC (21:21)
[2024-02-29] MEDS: Atorvastatin Calcium 40 MG Tablet PO (21:21)
[2024-03-01 01:59] LABS: Bedside Glucose 310 mg/dL (74-106)
[2024-03-01 03:00] VITALS: BP 108/59; PULSE 84; RESP 18; TEMP 37; O2SAT 94
[2024-03-01] MEDS: Insulin Lispro 100 UNIT/ML INSULN.PEN SC ×2 (06:39→11:35)
[2024-03-01 06:59] LABS: Hematocrit 37.8 % (37-47); Hemoglobin 12.2 g/dL (12.0-15.0); Mean Corp Hgb Conc 32.3 g/dL (32-36); Mean Corpuscular Hgb 27.7 pg (27.0-32.0); Mean Corpuscular Volume 85.7 fL (81-99); Mean Platelet Vol. 12.4 fl (6.2-12.0); Platelet Count 181 K/mm3 (150-450); RBC Distribution Width SD 44.2 fl (35.1-43.9); Red Blood Count 4.41 M/mm3 (4.2-5.4)
[2024-03-01 07:00] LABS: Bedside Glucose 194 mg/dL (74-106)
[2024-03-01 07:26] VITALS: O2SAT 98
[2024-03-01 07:33] LABS: AST(SGOT) 32 U/L (15-37); Alanine Aminotransfer ALT/SGPT 20 U/L (13-56); Alkaline Phosphatase 118 U/L (45-117); Anion Gap 4 (5-15); BUN 12 mg/dL (7-18); BUN/Creat Ratio 17.7 RATIO (10-20); Chloride 106 mmol/L (98-107); Cholesterol 98 mg/dL (200); Creatinine, Serum 0.68 mg/dL (0.55-1.02); EST Glomerular Filtration Rate 91 mL/min (>60); Est Glom Filt Rate - Afr Amer 110 mL/min (>60); Estimated Creatinine Clearance 59.25 ml/min; Glucose 218 mg/dL (74-106); High Density Lipoprotein 39 mg/dL; Potassium 4.1 mmol/L (3.5-5.1); Sodium Level 137 mmol/L (136-145); Triglycerides 75 mg/dL; Very Low Density Lipoprotein 15 mg/dL (5-40)
[2024-03-01 08:01] LABS: Hemoglobin A1c 9.3 % (3.8-5.6)
[2024-03-01] MEDS: Aspirin E.C. 81 MG Tablet PO ×2 (08:12)
[2024-03-01] MEDS: Carvedilol 3.125 MG TABLET PO (08:12)
[2024-03-01] MEDS: Clopidogrel Bisulfate 75 MG Tablet PO (08:13)
--- NOTE | 2024-03-01 08:20 | PCM.PN.CARD ---
Subjective Subjective The patient been up ambulating in the halls without incident. She is tolerating her current medical regiment denies any nuisance bleeding. Her wrist is intact and healing well. She denies any recurrence of her chest pressure which was her presenting anginal equivalent. The patient's echocardiogram revealed moderate aortic stenosis and mild aortic insufficiency with an ejection fraction of 50% and apical hypokinesis which was severe. This was consistent with her proximal LAD lesion which was treated with coronary stenting yesterday. Objective Data Vital Signs: Vital Signs Temp Pulse Resp BP Pulse Ox O2 Del Method 98.6 F 84 18 108/59 L 94 Room Air 03/01/24 03:00 03/01/24 03:00 03/01/24 03:00 03/01/24 03:00 03/01/24 03:00 03/01/24 03:00 Oxygen Delivery Method Room Air Weight: 167 lb 5.294 oz Body Mass Index (BMI) 31.6 Intake & Output: Intake and Output for Last 24 Hours 02/28/24 02/29/24 03/01/24 23:59 23:59 23:59 Intake Total 403.35 / 523.35 240 / 240 Balance 403.35 / 523.35 240 / 240 Lab / Micro Data Attestation: I reviewed the patient's lab results. 03/01/24 06:30 03/01/24 06:30 Labs: Laboratory Results - last 24 hr 02/29/24 03:30: Hemoglobin A1c 9.5 H 02/29/24 09:02: Troponin I High Sens 4030 H* 02/29/24 11:00: APTT 57.3 H 02/29/24 11:51: POC Glucose 159 H 02/29/24 12:50: Activated Clotting Time 287 H 02/29/24 13:17: Activated Clotting Time 232 H 02/29/24 16:20: POC Glucose 228 H 02/29/24 21:16: POC Glucose 310 H 03/01/24 06:30: WBC 7.0, RBC 4.41, Hgb 12.2, Hct 37.8, MCV 85.7, MCH 27.7, MCHC 32.3, RDW Std Deviation 44.2 H, RDW Coeff of Fatoumata 14.0, Plt Count 181, MPV 12.4 H, Sodium 137, Potassium 4.1, Chloride 106, Carbon Dioxide 27.0, Anion Gap 4 L, BUN 12, Creatinine 0.68, Estim Creat Clear Calc 59.25, Est GFR (MDRD) Af Amer 110, Est GFR (MDRD) Non-Af 91, BUN/Creatinine Ratio 17.7, Glucose 218 H, Hemoglobin A1c 9.3 H, Calcium 9.0, Total Bilirubin 0.50, AST 32, ALT 20, Alkaline Phosphatase 118 H, Total Protein 6.0 L, Albumin 3.0 L, Globulin 3.0, Albumin/Globulin Ratio 1.0, Triglycerides 75, Cholesterol 98, LDL Cholesterol 44, VLDL Cholesterol 15, HDL Cholesterol 39 L, TSH 2.260 03/01/24 06:37: POC Glucose 194 H Rhythm Strip Rhythm Strip: Sinus Rhythm Rate: 80 Ectopy: PAC(s) Cardiology Labs/Tests 02/29/24 03:30: Hemoglobin A1c 9.5 H 02/29/24 11:00: APTT 57.3 H 03/01/24 06:30: WBC 7.0, RBC 4.41, Hgb 12.2, Hct 37.8, MCV 85.7, MCH 27.7, MCHC 32.3, Plt Count 181, MPV 12.4 H, Sodium 137, Potassium 4.1, Chloride 106, Carbon Dioxide 27.0, Anion Gap 4 L, BUN 12, Creatinine 0.68, Est GFR (MDRD) Af Amer 110, Est GFR (MDRD) Non-Af 91, BUN/Creatinine Ratio 17.7, Glucose 218 H, Hemoglobin A1c 9.3 H, Calcium 9.0, Total Bilirubin 0.50, Triglycerides 75, Cholesterol 98, LDL Cholesterol 44, VLDL Cholesterol 15, HDL Cholesterol 39 L Rhythm: EKG: ECHO: Stress Test: Cardiac Cath: PCI: CT Surgery: Holter monitor: EPS: PPM: CXR: Chest CT Scan: Radiography Diagnostic Testing: Radiology Impression Echocardiogram 02/29/24 06:30 Interpretation Summary Mild concentric left ventricular hypertrophy. Severe apical hypokinesis. Estimated LVEF 50%. Stage II diastolic dysfunction. The left atrium is moderately enlarged. Mild-Moderate (1-2+) mitral valve insufficiency. Right ventricular systolic pressure estimated to be 69 mmHg. Mildly calcified aortic valve. Moderate aortic valve stenosis with mild aortic valve regurgitation. Ordering Physician: Uche Voss Referring Physician: Terri Munoz Performed By: Kika Mera, NATALEE, RVT Physical Exam Const alert and oriented x3 HEENT normocephalic Eyes EOMs intact bilaterally Neck no JVD and no carotid bruits Chest inspection of chest normal Resp normal respiratory effort and clear to auscultation bilaterally Cardio Rate: regular rate Rhythm: regular rhythm Heart Sounds: S1 normal, S2 normal and murmur systolic III/ harsh right sternal border; Negative for click or gallop Extremity no pedal edema Extremity Narrative: Right wrist shows no hematoma the bandage is clean and dry. Neuro Neuro Narrative: Alert and oriented x 3 Psych mental status grossly normal Assessment & Plan Assessment/Plan (1) Non-STEMI (non-ST elevated myocardial infarction): PLAN: Patient presented with chest pressure sensation when she tried to lay down to go to sleep at night. She underwent successful stenting of the 95% proximal LAD lesion 02/29/2024. The patient had hypokinesis of the apical segment of the left ventricle with an ejection fraction of 50% by echo. The patient is diabetic which is being treated with insulin, she has a history of hyperlipidemia on statin therapy, she does smoke about 3 cigarettes/day. We went over smoking cessation opportunities. The patient's blood pressure is treated as well. I explained to the patient she cannot stop the Plavix or aspirin for any reason for 1 year she voiced understanding given the stent in her LAD. (2) Hyperlipidemia: QUALIFIERS: Hyperlipidemia type: unspecified Qualified Code(s): E78.5 - Hyperlipidemia, unspecified PLAN: Lipids are at goal on atorvastatin 40 mg daily. 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 (4) Hypertension: QUALIFIERS: Hypertension type: primary hypertension Qualified Code(s): I10 - Essential (primary) hypertension PLAN: Blood pressure is well-controlled on her current medical regiment. In fact she was hypotensive yesterday but is normotensive today tolerating all of her medications. (5) Aortic valve disease: PLAN: Patient has moderate aortic stenosis mean gradient of 24 mmHg max gradient of 42 mmHg and mild aortic insufficiency. This will need to be monitored with serial echocardiograms. The patient will be reevaluated in the office in 7 to 10 days and we will repeat her echo at 1 year. PLAN: Plan 1. From cardiovascular standpoint the patient can be discharged home once we are assured that she has access to all of her medications. 2. The patient should follow-up in the [facility] offices in 7 to 10 days. 3. The patient cannot interrupt the Plavix or aspirin without cardiology consent for the next year. 4. The patient will follow-up with an echocardiogram in 1 year for monitoring of her aortic valve disease. 5. The patient needs to find a primary care physician in the [place] area given her recent relocation from [place]. Charges/Coding Visit Charges Inpatient E&M: 50512 [facility] L3
--- NOTE | 2024-03-01 08:21 | PN.HOSP_ITS ---
Reason for Visit Reason for Visit: Diagnoses Type 2 diabetes mellitus with other circulatory complications (02/29/24) Obesity, unspecified (02/29/24) Hyperlipidemia, unspecified (02/29/24) Nicotine dependence, unspecified, uncomplicated (02/29/24) Essential (primary) hypertension (02/29/24) Non-ST elevation (NSTEMI) myocardial infarction (02/29/24) Old myocardial infarction (02/29/24) prison (current) use of insulin (02/29/24) Subjective Subjective Feeling well. No new events. Objective Data Objective Data Vital Signs: Vital Signs Temp Pulse Resp BP Pulse Ox O2 Del Method 37.0 C 84 18 108/59 L 94 Room Air 03/01/24 03:00 03/01/24 03:00 03/01/24 03:00 03/01/24 03:00 03/01/24 03:00 03/01/24 03:00 Oxygen Delivery Method Room Air Weight: 75.9 kg Body Mass Index (BMI) 31.6 Intake & Output: Intake and Output for Last 24 Hours 02/28/24 02/29/24 03/01/24 23:59 23:59 23:59 Intake Total 403.35 / 523.35 240 / 240 Balance 403.35 / 523.35 240 / 240 Lab / Micro Data 03/01/24 06:30 03/01/24 06:30 Labs: Laboratory Results - last 24 hr 02/29/24 03:30: Hemoglobin A1c 9.5 H 02/29/24 09:02: Troponin I High Sens 4030 H* 02/29/24 11:00: APTT 57.3 H 02/29/24 11:51: POC Glucose 159 H 02/29/24 12:50: Activated Clotting Time 287 H 02/29/24 13:17: Activated Clotting Time 232 H 02/29/24 16:20: POC Glucose 228 H 02/29/24 21:16: POC Glucose 310 H 03/01/24 06:30: WBC 7.0, RBC 4.41, Hgb 12.2, Hct 37.8, MCV 85.7, MCH 27.7, MCHC 32.3, RDW Std Deviation 44.2 H, RDW Coeff of Fatoumata 14.0, Plt Count 181, MPV 12.4 H , Sodium 137, Potassium 4.1, Chloride 106, Carbon Dioxide 27.0, Anion Gap 4 L, BUN 12, Creatinine 0.68, Estim Creat Clear Calc 59.25, Est GFR (MDRD) Af Amer 110, Est GFR (MDRD) Non-Af 91, BUN/Creatinine Ratio 17.7, Glucose 218 H, H emoglobin A1c 9.3 H, Calcium 9.0, Total Bilirubin 0.50, AST 32, ALT 20, Alkaline Phosphatase 118 H, Total Protein 6.0 L, Albumin 3.0 L, Globulin 3.0, Albumin/Globulin Ratio 1.0, Triglycerides 75, Cholesterol 98, LDL Cholesterol 44, VLDL Cholesterol 15, HDL Cholesterol 39 L, TSH 2.260 03/01/24 06:37: POC Glucose 194 H Radiography Diagnostic Testing: Radiology Impression Echocardiogram 02/29/24 06:30 Interpretation Summary Mild concentric left ventricular hypertrophy. Severe apical hypokinesis. Estimated LVEF 50%. Stage II diastolic dysfunction. The left atrium is moderately enlarged. Mild-Moderate (1-2+) mitral valve insufficiency. Right ventricular systolic pressure estimated to be 69 mmHg. Mildly calcified aortic valve. Moderate aortic valve stenosis with mild aortic valve regurgitation. Ordering Physician: Uche Voss Referring Physician: Terri Munoz Performed By: Kika Mera, NATALEE, RVT Rhythm Strip Rhythm Strip: Sinus Rhythm Physical Exam Const alert and no apparent distress HEENT head/scalp atraumatic and moist oral mucous membranes Resp normal respiratory effort, no retractions, no use of accessory muscles and clear to auscultation bilaterally Cardio regular rate, regular rhythm, S1 normal heart sound and S2 normal heart sound GI normal to inspection, nondistended, normoactive bowel sounds and soft to palpation Assessment & Plan Assessment/Plan (1) Non-STEMI (non-ST elevated myocardial infarction): (2) Hx of myocardial infarction: (3) Hyperlipidemia: QUALIFIERS: Hyperlipidemia type: unspecified Qualified Code(s): E 78.5 - Hyperlipidemia, unspecified (4) Obesity (BMI 30.0-34.9): (5) Type 2 diabetes mellitus: QUALIFIERS: Diabetes mellitus complication detail: with other circulatory complications Diabetes mellitus complication status: with circulatory complication Diabetes mellitus long-term insulin use: with long-term use Qualified Code(s): E11.59 - Type 2 diabetes mellitus with other circulatory complications; 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 * ASA. Heparin gtt. ASA, Clopidogrel and statin. * PCI on 02/28 to LAD. * Echo shows an EF 50% with severe apical hypokinesis. RVSP 69mmHg. (EF 65% on 11/12/23) * Follow up with cardiology. Chronic conditions: * Essential hypertension - Continue home regimen plus give prn IV Hydralazine for systolic blood pressure > 160 mmHg. * Hyperlipidemia - Resume statin and check Lipid Profile in light of #1. * Obesity; with BMI of 32.8 this admission - Weight loss will be recommended. * History of MARSH - Stable. * DM-2; of unknown control - ADA diet. SSI check an a1c. * History of uterine cancer - Noted. * history of asthma - Stable with no evidence of flare. Give prn nebulizers. * History of syncope - Noted. VTE prophylaxis: not indicated as already anticoagulated.
[2024-03-01] MEDS: Potassium Chloride Oral Tablet 10 MEQ PO (09:35)
[2024-03-01] MEDS: Cholecalciferol (Vit D3) 125 MCG CAPSULE (5,000 UNITS) PO (09:35)
[2024-03-01] MEDS: Multivitamin (Healthy Eyes) Capsule 1 CAP PO (09:35)
[2024-03-01] MEDS: hydroCHLOROthiazide 12.5mg 12.5 MG PO (09:35)
[2024-03-01] MEDS: Pantoprazole Sodium 40 MG Tablet PO (09:35)
[2024-03-01] MEDS: Sertraline 50 MG Tablet PO (09:35)
[2024-03-01] MEDS: Tolterodine Tartrate 2 MG CAP.SA PO (09:36)
[2024-03-01] MEDS: Losartan Potassium 25 MG Tablet PO (09:36)
--- NOTE | 2024-03-01 10:59 | DS.PCM_ITS ---
Providers Date of Admission: 02/29/24 Primary Care Physician: Terri Munoz MD Consultations 02/29/24 06:30 Consult: Cardiology Routine Consulting Provider: Keyana Hale Reason for Consult: Chest Pain EMERGENT Consult: No MD Notified: Yes Date Notified: 02/29/24 Time Notified: 07:07 Method of Notification: Text Method of Consult:: In-Person Reason For Visit: NSTEMI Diagnosis Discharge Diagnosis (1) Non-STEMI (non-ST elevated myocardial infarction): Status: Acute Code(s): I21.4 - Non-ST elevation (NSTEMI) myocardial infarction (2) Hx of myocardial infarction: Status: Acute Code(s): I25.2 - Old myocardial infarction (3) Hyperlipidemia: Status: Acute Code(s): E78.5 - Hyperlipidemia, unspecified Qualifiers: Hyperlipidemia type: unspecified Qualified Code(s): E78.5 - Hyperlipidemia, unspecified (4) Obesity (BMI 30.0-34.9): Status: Acute Code(s): E66.9 - Obesity, unspecified (5) Type 2 diabetes mellitus: Status: Acute Code(s): E11.9 - Type 2 diabetes mellitus without complications Qualifiers: Diabetes mellitus residential insulin use: with residential use Diabetes mellitus complication status: with circulatory complication Diabetes mellitus complication detail: with other circulatory complications Qualified Code(s): E 11.59 - Type 2 diabetes mellitus with other circulatory complications; 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 * ASA. Heparin gtt. ASA, Clopidogrel and statin. * PCI on 02/28 to LAD. * Echo shows an EF 50% with severe apical hypokinesis. RVSP 69mmHg. (EF 65% on 11/12/23) * Follow up with cardiology. Chronic conditions: * Essential hypertension - Continue home regimen plus give prn IV Hydralazine for systolic blood pressure > 160 mmHg. * Hyperlipidemia - Resume statin and check Lipid Profile in light of #1. * Obesity; with BMI of 32.8 this admission - Weight loss will be recommended. * History of MARSH - Stable. * DM-2; of unknown control - ADA diet. SSI check an a1c. * History of uterine cancer - Noted. * history of asthma - Stable with no evidence of flare. Give prn nebulizers. * History of syncope - Noted. VTE prophylaxis: not indicated as already anticoagulated. Medications at Discharge Home Medications aspirin 81 mg tablet,delayed release 81 mg PO DAILY cholesterol 03/16/23 albuterol sulfate 90 mcg/actuation aerosol inhaler 2 puff inhalation Q6H PRN asthma 09/15/23 atorvastatin 40 mg tablet 40 mg PO DAILY cholesterol 09/15/23 cholecalciferol (vitamin D3) 125 mcg (5,000 unit) capsule 125 mcg PO DAILY supplement 09/15/23 insulin aspart U-100 100 unit/mL subcutaneous solution (Novolog U-100 Insulin aspart) 1 sliding scale dose subcut USEASDIRECTD diabetes 09/15/23 insulin degludec 100 unit/mL (3 mL) subcutaneous pen (Tresiba FlexTouch U-100 insulin) 13 unit subcut QHS diabetes 09/15/23 losartan 50 mg-hydrochlorothiazide 12.5 mg tablet 1 tab PO DAILY BP 09/15/23 oxybutynin chloride 10 mg tablet,extended release 24 hr 10 mg PO DAILY bladder 09/15/23 pantoprazole 40 mg tablet,delayed release 40 mg PO DAILY emely 09/15/23 sertraline 50 mg tablet 50 mg PO DAILY depression 09/15/23 potassium chloride 10 mEq capsule,extended release 10 meq PO DAILY #90 caps 10/11/23 vitamins A,C,T-kufu-swnhfg 4,296 mcg-226 mg-90 mg capsule (PreserVision AREDS) 1 cap PO BID supplement 10/11/23 carvedilol 3.125 mg tablet 3.125 mg PO BID #60 tabs 03/01/24 clopidogrel 75 mg tablet 75 mg PO DAILY #30 tabs 03/01/24 Hospital Course Operations None Procedures 2-D Echocardiogram and Cardiac catheterization Summary of Care Provided Minutes Spent on Discharge: 32 Hospital Course: Patient presents with chest pain and shortness of breath. Patient was found to has a non-ST patient myocardial infarction. Troponins peaked up to 4161. Patient underwent a left heart catheterization and had a stent placed to the LAD. 2D echocardiogram showed EF of 50%. Patient will continue with atorvastatin, carvedilol, losartan, clopidogrel and aspirin. Patient to follow- up cardiology as outpatient. Weight / BMI Weight Weight: 75.9 kg Body Mass Index (BMI) 31.6 ABG / Lab / Microbiology Data 03/01/24 06:30 03/01/24 06:30 Laboratory: Laboratory Results - last 24 hr 02/29/24 03:30: Hemoglobin A1c 9.5 H 02/29/24 11:00: APTT 57.3 H 02/29/24 11:51: POC Glucose 159 H 02/29/24 12:50: Activated Clotting Time 287 H 02/29/24 13:17: Activated Clotting Time 232 H 02/29/24 16:20: POC Glucose 228 H 02/29/24 21:16: POC Glucose 310 H 03/01/24 06:30: WBC 7.0, RBC 4.41, Hgb 12.2, Hct 37.8, MCV 85.7, MCH 27.7, MCHC 32.3, RDW Std Deviation 44.2 H, RDW Coeff of Fatoumata 14.0, Plt Count 181, MPV 12.4 H , Sodium 137, Potassium 4.1, Chloride 106, Carbon Dioxide 27.0, Anion Gap 4 L, BUN 12, Creatinine 0.68, Estim Creat Clear Calc 59.25, Est GFR (MDRD) Af Amer 110, Est GFR (MDRD) Non-Af 91, BUN/Creatinine Ratio 17.7, Glucose 218 H, H emoglobin A1c 9.3 H, Calcium 9.0, Total Bilirubin 0.50, AST 32, ALT 20, Alkaline Phosphatase 118 H, Total Protein 6.0 L, Albumin 3.0 L, Globulin 3.0, Albumin/Globulin Ratio 1.0, Triglycerides 75, Cholesterol 98, LDL Cholesterol 44, VLDL Cholesterol 15, HDL Cholesterol 39 L, TSH 2.260 03/01/24 06:37: POC Glucose 194 H Radiography Diagnostic Testing: Radiology Impression Echocardiogram 02/29/24 06:30 Interpretation Summary Mild concentric left ventricular hypertrophy. Severe apical hypokinesis. Estimated LVEF 50%. Stage II diastolic dysfunction. The left atrium is moderately enlarged. Mild-Moderate (1-2+) mitral valve insufficiency. Right ventricular systolic pressure estimated to be 69 mmHg. Mildly calcified aortic valve. Moderate aortic valve stenosis with mild aortic valve regurgitation. Ordering Physician: Uche Voss Referring Physician: Terri Munoz Performed By: Kika Mera RDCS, RVT D/C Instructions Discharge Diet: 2000 Calorie Control Diet Meaningful Use Info Meaningful Use Meaningful Use Diagnoses (Choose all that apply): AMI AMI/Post PCI/Angioplasty Aspirin given w/in 24hrs of arrival?: Yes ASA at discharge?: Yes Antiplatelet Therapy at Discharge:: Yes Statins at discharge?: Yes Manjit/ARB at discharge?: Yes Beta Sami at discharge?: Yes Done w/ Acute AR measure.: Yes Documented LVEF (%): 50 Ischemic Stroke Statin Dosing Therapy Reference: STATIN DOSE THERAPY REFERENCE: * Patients > 75 years receive moderate or high dose statin therapy. * Patients 75 years or YOUNGER should receive HIGH intensity statin dose unless contraindicated. You will be required to document reason for non-treatment if statin daily dose does not meet guidelines. HIGH DOSE STATIN THERAPY DAILY Atorvastatin > than or = to 40 mg Rosuvastatin > than or = to 20 mg Amlodipine + Atorvastatin > than or = to 2.5/40 mg Ezetimibe + Simvastatin 10/80 mg Simvastatin 80mg Discharge Plan Admission Admit Date/Time: 02/29/24 05:48 Primary Reason for Your Visit: Non-STEMI Attending Provider: Jorge Vera Primary Care Provider: Terri Munoz Consulting Providers: Uche Voss; Yaneth Rosales; Jill Amin; Silvia Pizarro; Leif Rob; Inocencio Loera; Ha Ramsey; Royal Friedman; Priyank Agustin; Maile Fields; Claude Heller; Isidro Castellon NP; Yaneth Bower NP; Genet Godfrey Instructions Patient Instructions: Heart Attack Dc, Heart Attack Meds, Heart Attack: Your Risk Factor Action Plan, Heart Attack Questions, Heart Attack: Back at Home Discharge Orders/Prescriptions Prescriptions: New clopidogrel 75 mg Tablet 75 mg PO DAILY Qty: 30 0RF carvedilol 3.125 mg Tablet 3.125 mg PO BID Qty: 60 0RF Continued aspirin 81 mg tablet,delayed release (DR/EC) 81 mg PO DAILY pantoprazole 40 mg tablet,delayed release (DR/EC) 40 mg PO DAILY atorvastatin 40 mg tablet 40 mg PO DAILY losartan-hydrochlorothiazide 50-12.5 mg tablet 1 tab PO DAILY insulin degludec [Tresiba FlexTouch U-100] 100 unit/mL (3 mL) insulin pen 13 unit subcut QHS Patient Comments: INJECT 13 UNITS SUBCUTANEOUSLY EVERY DAY AT BEDTIME sertraline 50 mg tablet 50 mg PO DAILY PreserVision AREDS 4,296 mcg-226 mg-90 mg capsule 1 cap PO BID oxybutynin chloride 10 mg tablet extended release 24hr 10 mg PO DAILY insulin aspart U-100 [Novolog U-100 Insulin aspart] 100 unit/mL solution 1 sliding scale dose subcut USEASDIRECTD albuterol sulfate 90 mcg/actuation HFA aerosol inhaler 2 puff inhalation Q6H PRN (Reason: asthma) cholecalciferol (vitamin D3) 125 mcg (5,000 unit) capsule 125 mcg PO DAILY potassium chloride 10 mEq capsule, extended release 10 meq PO DAILY Qty: 90 3RF Discontinued propranolol 20 mg tablet 20 mg PO DAILY PRN (Reason: blood pressure) Patient Comments: TAKE 1 TABLET BY MOUTH ONCE DAILY NEEDED FOR ANXIETY Referrals / Follow Up: Terri Munoz MD [Primary Care Provider] - Within 2 Weeks Isidro Castellon NP, [facility] [Med Staff - [facility] Practice Prof] - 03/15/24 10:00 am Disposition Disposition (needs filled in before D/C Order can be placed): Home, Self Care Charges/Coding Visit Charges Inpatient E&M: 37347 Disch Hosp >30min
--- NOTE | 2024-03-01 11:43 | CASEMGMT ---
Patient has order for discharge. RN CM in to discuss needs at discharge. Patient denies needs or help at discharge, lives with sister. Patient had no further questions or concerns.
[2024-03-01 12:31] VITALS: BP 117/72; PULSE 77; RESP 18; TEMP 36.2; O2SAT 98
[2024-03-01 15:18] LABS: Bedside Glucose 217 mg/dL (74-106)
[2024-03-01 15:18] LABS: Bedside Glucose 218 mg/dL (74-106)
== END 2024-03-01 12:27 | disposition home or self-care (01) | DRG 322 ==
LOC: ED 05:19 → PCU 06:20
PROVIDERS: Admitting Provider Internal Medicine; Emergency Provider Emergency Medicine; PCP Family Medicine
DX: I21.4 Non-ST elevation (NSTEMI) myocardial infarction (principal); E11.59 Type 2 diabetes mellitus with other circulatory complications; I10 Essential (primary) hypertension; I35.1 Nonrheumatic aortic (valve) insufficiency; F32.A Depression, unspecified; E66.9 Obesity, unspecified; I25.10 Atherosclerotic heart disease of native coronary artery without angina pectoris; E78.5 Hyperlipidemia, unspecified; K21.9 Gastro-esophageal reflux disease without esophagitis; Z79.4 Long term (current) use of insulin; F17.210 Nicotine dependence, cigarettes, uncomplicated; I25.2 Old myocardial infarction; N39.41 Urge incontinence; Z68.32 Body mass index [BMI] 32.0-32.9, adult; Z79.82 Long term (current) use of aspirin; Z79.899 Other long term (current) drug therapy
CPT/HCPCS: 36415; 71046; 80048; 80053; 80061; 82962; 83036; 83735; 84443; 84484; 85025; 85027; 85347; 85379; 85610; 85730; 92928; 93005; 93306; 93454; 99152; 99153; 99283; 99406; J7040; Q9967; A4216; C1725; C1769; C1874; C1887; C1894; C9600; J1327; J2405

== ENCOUNTER → 2024-03-20 | Outpatient (CLI) | payer MEDICARE, SELFPAY ==
--- NOTE | 2024-03-20 09:43 | PCM.CR.HP2 ---
CR - History & Physical General Arrival date:: 03/20/24 Arrival time:: 09:43 Date of Referral:: 02/29/24 Date of CR Evaluation:: 03/20/24 Referring Physician: Dr. Pizarro Primary Diagnosis: PCI with stent History of Present Cardiac Event Onset Date PTCA or coronary stenting:: Yes (02/29/24 onset) Vessel: LAD Medications Ambulatory Orders ?Medication ?Instructions ?Recorded aspirin 81 mg tablet,delayed 81 mg PO DAILY cholesterol 03/16/23 release albuterol sulfate 90 mcg/actuation 2 puff inhalation Q6H PRN asthma 09/15/23 aerosol inhaler atorvastatin 40 mg tablet 40 mg PO DAILY cholesterol 09/15/23 insulin aspart U-100 100 unit/mL 1 sliding scale dose subcut 09/15/23 subcutaneous solution (Novolog USEASDIRECTD diabetes U-100 Insulin aspart) insulin degludec 100 unit/mL (3 13 unit subcut QHS diabetes 09/15/23 mL) subcutaneous pen (Tresiba FlexTouch U-100 insulin) losartan 50 mg-hydrochlorothiazide 1 tab PO DAILY BP 09/15/23 12.5 mg tablet oxybutynin chloride 10 mg 10 mg PO DAILY bladder 09/15/23 tablet,extended release 24 hr pantoprazole 40 mg tablet,delayed 40 mg PO DAILY reflux 09/15/23 release sertraline 50 mg tablet 50 mg PO DAILY depression 09/15/23 potassium chloride 10 mEq 10 meq PO DAILY supplement #90 caps 10/11/23 capsule,extended release vitamins A,C,Y-nvyu-pmpfps 4,296 1 cap PO BID supplement 10/11/23 mcg-226 mg-90 mg capsule (PreserVision AREDS) carvedilol 3.125 mg tablet 3.125 mg PO BID #60 tabs 03/01/24 clopidogrel 75 mg tablet 75 mg PO DAILY #30 tabs 03/01/24 cholecalciferol (vitamin D3) 125 125 mcg PO BID supplement 03/15/24 mcg (5,000 unit) capsule Allergies Allergies matty Allergy (Severe, Verified 03/15/24 10:23) Anaphylaxis mushroom Allergy (Severe, Verified 03/15/24 10:23) Anaphylaxis fluconazole (From Diflucan) Allergy (Verified 03/15/24 10:23) Hives isosorbide (From Imdur) Adverse Reaction (Verified 03/15/24 10:23) Other HEADACHE SURGICAL DIANE Allergy (Intermediate, Uncoded 03/15/24 10:23) INFECTION Sleep Disorder Evaluation Hx of Sleep Apnea: No Do you snore loudly (louder than talking or can be heard through closed doors)?: No Do you often feel tired/ fatigued/ sleepy during daytime?: No Has anyone observed you stop breathing during sleep?: No History of Hypertension (for STOP score): Yes STOP Results: Negative Advanced Directives Advanced Directives Power of Poultry Breeder: No Living Will: Yes Advance Directives Information Provided: No Advance Directives on File: No DNR Order?:: No Past Medical History Covid-19 Screening Physicial Symptoms Other Clinical Concerns Exposure Risk Pertinent Comorbidities 65 years or older:: Yes Has a chronic lung disease or moderate to severe asthma:: Yes Has a serious heart condition:: Yes Severely obese (Body Mass Index of 40 or higher):: Yes Diabetic:: Yes Has liver disease:: Yes Past Medical Illness Medical History Aortic valve disease Hyperlipidemia Type 2 diabetes mellitus Nicotine dependence Obesity (BMI 30.0-34.9) Atherosclerotic heart disease of [place] coronary artery without angina pectoris History of fracture of right ankle Hx of myocardial infarction Chest pain Syncope and collapse Urge incontinence Osteoporosis Morbid obesity Migraine Hernia of abdominal cavity Nonalcoholic liver disease, chronic H/O esophageal reflux History of ankle fracture Uterine cancer Ovarian cancer Heart murmur Hypertension Asthma Past Surgical History Surgical History Stented coronary artery (02/29/24) History of cataract extraction Family History Summary Family History Other Cancer Hypertension Myocardial infarction Social History Smoking History Smoking Status: Current every day smoker Years Smokin (less than a pack a day) Hx Tobacco Use: Yes Hx Smoking Exposure: Yes Alcohol Use Alcohol Usage: No Substance Abuse Hx Substance Use: No Occupation Occupation (List type of work in comments):: Retired Hobbies, Recreation, Social Activities Hobbies: Other (fishing, cooking) Recreational Activities: I am able to engage in all my recreational activities Social Environment Status Marital Status: Current Living Arrangements Living Environment:: Family Children How many children do you have?: 0 Safety Do you feel safe in your surroundings?: Yes Assistance Do you need any assistance at home?: no Review of Systems Review of Systems Hints Review of Present Symptoms: Reports Shortness of Breath with Exertion, Fatigue, Appetite - Normal and Appetite - Special Diet; Denies Shortness of Breath at Rest, PVD, Operative Discomfort, Angina, Wound Healing, Dizziness/Lightheadedness, Heart Arrhythmia/Irregularities, Sleep - Normal or Sexual Changes Pain Is Patient Pain Free?: Yes Pain Location: other (everywhere) Pain Level: 04/25 Risk Factor Assessment Chief Complaint Chief Complaint: PCI with stenting Vital Signs Pulse Ox: 96 Blood Pressure: 120/46 Pulse Pulse Rate: 64 Pulse Rhythm: Regular Hypertension How long have you been treated?: 35-40 years Blood Pressure Sitting - Left Arm: 120/46 Diabetes Diabetic History: Type II Nutrition Referral for Diabetes: No Obesity Height: 5 ft 1 in Weight:: 167 lb Weight in Pounds: 167.0 lbs Body Mass Index (BMI): 31.5 Nutritional Referral for Obesity: No (declines has seen a button bradder several time for DM) Physical Inactivity Physical Inactivity: Recreational activity (walking) Risk Stratification Risk Guidelines: Moderate Risk: Risk Factor for Sedentary Lifestyle and Risk Factor for Depression and Highest Risk: Risk Factor for Smoking, Risk Factor for Dyslipidemia, Risk Factor for Diabetes, Risk Factor for Obesity and Risk Factor for Hypertension For Smoking Smoking Risk Guidelines For Dyslipidemia Dyslipidemia Risk Guidelines For Diabetes Mellitus Diabetes Risk Guidelines For Obesity/Overweight Obesity/Overweight Risk Guidelines For Hypertension Hypertension Risk Guidelines For Sedentary Lifestyle Sedentary Lifestyle Risk Guidelines For Depression Depression Risk Guidelines Family History Family History (Reviewed 03/15/24 @ 10:51 by Isidro Castellon CORRUGATED FASTENER DRIVER, CORRUGATED FASTENER DRIVER-C) Other Cancer Hypertension Myocardial infarction Motivation Motivation to Participate On a scale of 1 to 10, how prepared are you to commit to attending program?: 8 What do you see as barriers to successfully being able to complete the program?: no What do you see as the benefits of succesfully completing the program? In other words, what do you hope to get out of participating in the program?: energy, stronger heart Are there issues you are dealing with that will interfere with completing the program?: no Do you have a spouse or signficant other, family or friends who will help support you to complete the program?: yes
--- NOTE | 2024-03-20 09:51 | CR.ITP_ITS ---
Diagnosis General Information Admitting Diagnosis: PCI with stent Secondary Diagnosis: PR Personal Learning Style:: Audio/Visual Barriers to Learning: No Barriers Stage of change r/t lifestyle modifications:: Contemplation Gave educational material for:: Treating Heart Disease, How The Heart Works, What it means to have Heart Disease, How Coronary Artery Disease is Diagnosed, Heart Procedures, What Heart Medications Do, Risk Factors & Modifications, Living an Active Life, Nutrition, Emotions & Heart Disease, Stress Management & Relaxation and Sleep Disorders & Heart Disease Education/Goals Cardiac Rehabilitation Goals Personal Goals: Initial Assessment: Quit smoking (participate in smoking cessation, Improve management of stress and emotions, Improve energy level, Participate in home exercise program, Get back to work, or to resume activities faster, Improve knowledge of cardiac disease, Improve muscle strength and e ndurance, Improve diet and eating habits (eat healthier) and Control risk factors (learn risk factor modification) Scale for measuring improvement of personal goals Diagnosis & Disease Process Outcomes/Goals: Pt IDs own risk factors & lifestyle modifications by Session 10, Verbalizes symptoms of angina & response by session 3., Pt independently manages and Other Additional Outcomes/Goals: Plan/Interventions: Assist Pt to ID & engage in lifestyle modification to reduce CVD risk, Instruct on individual risk factors, Review symptoms of angina & emergency actions, Review secondary diagnosis & identify educational needs. and Other see comment 30 day Reassessments:: Not Met 30 day Reassessments:: Not Met 30 day Reassessments:: Not Met 30 day Reassessments:: Not Met Final Reassessments:: Not Met Safety Referral to Physical Therapy: No Referral to [facility] Case Management: No Fall Risk Assessed:: Yes Assistive Devices:: Wheelchair Exercise - Initial Assessment Visit Date of Eval: 03/20/24 (initial eval ) Mets: Pre-: >3 METS for 30 minutes by discharge, >5 METS for 30 minutes by discharge, >7 METS for 30 minutes by discharge and Unable to meet goal due to: ( see comment below) Physician Prescribed Exercise Modalities: Treadmill, Rower, Schwinn Airdyne AD-7, SciFit Stepper, SciFit Pro- II Ergometer and SciFit Lateral Litigation Coordinator Frequency: 3x/week for 12 weeks [36 sessions] Intensity: 60-80% of age predicted maximum heart rate reserve Current METSs:: 3 Target Heart Rate:: 88-103 EKG Type: accelerated junctinal rhythm RBBB, T wave abnormality Outcomes & Goals Goals:: Verbalizes understanding of THR, RPE & goal METS by session 6, Documents in home exercise log/reports 30 min aerobic 5 day/wk by DC, Demonstrates accurate pulse taking by DC and Other additional outcome/goals: see below Intervention & Plan Exercise Program Goals: Instruct on personal THR & RPE, Instruct on MET level & personal MET goal, Show patient to take own pulse /validate performance until accurate, Instruct on home exercise and Other additional plan/int Physical Activity Home Exercise Physical Activity - Home Exercise: Safe Exercise, Warm-up, Self-monitoring, Cool-Down, Home Exercise > 30 min Daily and Sitting Time <3 hours/daily Outcomes & Goals Outcomes/Goals: Demonstrates correct Warm-up/exercise Cool-Down (S3) if = 2.5 METs, Verbalizes symptoms of exercise intolerance by Session 3 (S3), Demonstrate safe equipment use (S3) & follows exercise prescrition (6) and Other: See below Intervention & Plan Plan/Intervention: Instruct warm-up & cool-down if exercising at > 2 METs, Instruct on symptoms of exercise intolerance & actions to take, Instruct & monitor on saf, Assess intial functional capacity & safety risk and Other See below Nutrition - Initial Assessment Program Goals Nutrition Program Goals Patient has diagnosis of Hyperlipidemia (ICD E78)?: Yes Visit Date of Eval: 03/20/24 (initial eval ) Cholesterol/Lipids (Other Core Measures) Determine presence & major risk factors that modify LDL goal: Cigarette smoking, Hypertension or hypertensive medication, Low HDL cholesterol <40 mg/dL*, Family history of premature CHD in Male < 55 years: female <65 yearsFa and Age men > 45 years; women >/= 55 years Outcomes/Goals: Pt IDs own risk factors & lifestyle modifications by Session 10, Verbalizes symptoms of angina & response by session 3., Pt independently manages and Other Additional Outcomes/Goals: Intervention/Plan: Advocate for lipid panel cholesterol medication if applicable, Instruct on personal lipid levels & lipid goals/NCEP guidelines, Instruct on cholesterol and Other additional plan/int Diabetes (Other Core Measures) Diabetes Type: Diagnosis Type II ICD-10 E11 Insulin dependent injection/pump?: Yes Non-Insulin Dependent?: No Do you monitor your blood sugar at home?: Yes Referral to Diabetic Clinic:: No Outcomes/Goals:: Able to state symptoms of, Able to state, Able to state and Other additional Intervention/Plan:: Instruct on, Refer to, Instruct on and Other Weight Mgt (Other Care) Height: 5 ft 1 in Weight:: 167 lb BMI: 31.5 Diagnosis Overweight/Obesity BMI> 30% ICD-10 E66: Yes Diagnosis High BMI/Morbid Obesity BMI> 35% ICD-10 Z68: No Outcomes/Goals: Pt sets, maintains & shows weight loss goal & trend during rehab and Other additional outcomes/goals Intervention/Plan: Instruct on ideal BMI & set weight loss goal w/patient, Assist pt to ID & incorporate diet changes for weight loss by S9, Refer to Structured Weight Loss program as appropriate, Encourage goal of using 250- 300dcal per session for weight loss and Other additional plan/interventions Healthy Eating Habits Will attend diet classes:: Yes Outcomes/Goals:: Consume diet rich in vegs,fruits,whole grain/high fiber,fish,lean meat, Limit sat/trans fats,cholesterol & added salts & sugars and Other additional outcome/goals: Intervention/Plan:: Assess current eating habits and Other Additional plan/interventions Education Gave educational materials for:: Signs & symptoms of hypoglycemia, Signs & symptoms of hyperglycemia, Relate diabetes to coronary artery disease and Healthy eating Core - Initial Assessment Visit Date of Eval: 03/20/24 (initial eval ) Medication Compliance Preventative Medication(s):: Aspirin, Clopidogrel/P2Y12 inhibit, Statin/lipid, Beta lashonda and ARB (Angiotensi Rcap) H/O mental health issues: depression, anxiety, or addiction?: No Doesn?t believe in the benefits of treatment?: No Believes medications are unnecessary or harmful?: No Has a concern about medication side effects?: No Expresses concern over the cost of medications?: No Outcomes/Goals: Verbalizes medications,desired effect & common side effects @ DC, Pt self-reports following medication regimen, Keeps card in wallet w/medications listed by DC and Other additional outcome/goals: Interventions/plans: Instruct on medication effects & side effects, Review medication list w/patient every two weeks, Instruct importance of taking meds as ordered & assist problem solving and Other additional Tobacco Use Tobacco Use: Cigarettes How many cigarettes do you smoke per day?: 5 Years Smokin Do you use smokeless tobacco?: No Outcomes/Goals: Smoking cessation achieved or maintained by discharge, Identify aids/strategies for achieving smoking cessation by session 6 and Other additional outcome/goals Interventions/plan: Instruct on effects of smoking & provide smoking cessation resource, Assist pt to set quit date & provide encouragement, Assist pt to develop strategies to achieve/maintain quit date, Assist pt w/nicotine replacement & medication for cessation success and Other additional plan/interventions Hypertension Hypertension Diagnosis:: Not Applicable [place] [employer] Hypertension Guidelines Outcomes/Goals: Able to verbalize/achieve optimal blood pressure <130/80, Incorporates diet changes & exercise for blood pressure control by DC and Other additional outcomes/goals Interventions/plan: Instruct on optimal blood pressure, hypertension & medications, Instruct on effects of sodium, alcohol, stress, exercise &hypertension and Other additional plan/interventions Tobacco Cessation Referral Smoking Cessation Referral:: No (pt declines) Individual Education/Counseling:: No Education Schedule Given:: Yes Psychosocial - Initial Assess VIsit Date of Eval: 03/20/24 (initial eval ) History of previous Mental disease:: No Target Goals Target Goals Outcomes/Goals: See list Psychosocial Outcomes/Goals:: ID's personal stressors & 2 strategies to manage stress by discharge and Other Additional outcome/goals: Intervention/Plan: See List Interventions/Plan:: Assess stressors,coping strategies & signs of derpression on admission, Instruct/assist pt to develop coping & personal stress Mgt strategies, Refer to Behavioral Health if appropriate, Refer to Physician if appropriate, Instruct patient to recognize signs & symptoms of depression, Instruct patient to recog and Other additional plan/intervention Patient Health Questionnaire PHQ-9 Screening Initial Assessment: 1. Little interest or pleasure in doing things: Nearly every day 2. Feeling down, depressed, or hopeless: Not at all 3. Trouble falling or staying asleep, or sleeping too much: Nearly every day 4. Feeling tired or having little energy: Several days 5. Poor appetite or overeating: Not at all 6. Feeling bad about yourself -- or that you are a failure or have let yo urself or your family down: Not at all 7. Trouble concentrating on things, such as reading the newspaper or watching television: Not at all 8. Moving or speaking so slowly that other people could have noticed. Or the opposite - being so fidgety or restless that you have been moving around a lot more than usual: Not at all 9. Thoughts that you would be better off , or of hurting yourself in some way: Not at all How difficult have these problems made it for you to do your work, take care of things at home, or get along with other people?: Somewhat difficult Total Score: 7 YSABEL-Q SV Test Statements CAD is a disease of the arteries in the heart: True Examples of risk factors for heart disease: I Don't Know Angina is chest pain or discomfort: False The benefits of resistance training include: True Eating more meat and dairy products: I Don't Know Anti-platelet medications such as aspirin are important: True The only effective way to manage stress: True An exercise warm-up slowly increases heart rate: True Prepared, processed foods usually have high sodium: True Depression is common after a heart attack: True The statin medications lower cholesterol: True To control blood pressure, lower the amount of sodium: True If someone gets chest discomfort during walking: False Transfats are partially hydrogenated vegetable oils: True Sleep apnea that is not treated increases the risk: True To control cholesterol, one should become a vegetarian: False Someone knows if he/she is exercising at the right level: True Diabetes cannot be prevented with exercise & health eating: True Stress is a large risk for heart attack: True A diet that can help lower blood pressure is rich in: True Total Score Total Correct Responses: 13 Self-Efficacy 6-Item Scale Initial Assessment: We would like to know how confident you are in doing certain activities. Please select your confidence level for: Fatigue Select Number: 6 Physical Discomfort or Pain Select Number: 6 Emotional Distress Select Number: 8 Other Symptoms or Health Problems Select Number: 7 Different Tasks and Activities Select Number: 9 Medication Select Number: 9 Total Score:: 7 Nutrition Survey Nutrition Survey Instructions Scoring Instructions Nutrition Survey Initial: Have you lost >10 lbs over the past 2 months without trying?: No Are you following a special diet at home for diabetes, low fat, or low salt?: Yes Are you interested in meeting with a dietitian for help understanding your diet?: No Do you eat less than 3 meals a day?: Yes Do you eat fatty meats (hanna, sausage, ribs, etc), fried foods, desserts, large amounts of salad dressings, margarine, butter, or cheese most days?: No Do you have food allergies? [Enter types in comment field]: Yes Do you eat in restaurants more than 3 times a week?: No Do you season food with salt, seasoning salt, or garlic salt?: Yes Do you used canned, boxed, frozen meals, or soups, seasoning packets?: No Total Score:: 4 Exercise - 30-day Assessment Physician Prescribed Exercise Modalities: Treadmill, Rower, Schwinn Airdyne AD-7, SciFit Stepper, SciFit Pro- II Ergometer and SciFit Lateral Litigation Coordinator Exercise - 60-day Assessment Physician Prescribed Exercise Modalities: Treadmill, Rower, Schwinn Airdyne AD-7, SciFit Stepper, SciFit Pro- II Ergometer and SciFit Lateral Litigation Coordinator Exercise - 90-day Assessment Physician Prescribed Exercise Modalities: Treadmill, Rower, Schwinn Airdyne AD-7, SciFit Stepper, SciFit Pro- II Ergometer and SciFit Lateral [place] Exercise - Final/Discharge Physician Prescribed Exercise Modalities: Treadmill, Rower, Schwinn Airdyne AD-7, SciFit Stepper, SciFit Pro- II Ergometer and SciFit Lateral Litigation Coordinator Frequency: 3x/week for 12 weeks [36 sessions] Intensity: 60-80% of age predicted maximum heart rate reserve Current METSs:: 3 Target Heart Rate:: 88-103 Nutrition - 30-Day Assessment Weight Mgt (Other Care) Height: 5 ft 1 in Weight:: 167 lb BMI: 31.5 Nutrition - 60-Day Assessment Weight Mgt (Other Care) Height: 5 ft 1 in Weight:: 167 lb BMI: 31.5 Core - 30-Day Assessment Tobacco Use Years Smokin Psychosocial - 30-Day Assess Target Goals Target Goals Psychosocial - 60-Day Assess Target Goals Target Goals Psychosocial - 90-Day Assess Target Goals Target Goals Psychosocial - Final Assessmen Target Goals Target Goals Nutrition - 90-Day Assessment Weight Mgt (Other Care) Height: 5 ft 1 in Weight:: 167 lb BMI: 31.5 Nutrition - Final Assessment Program Goals Patient has diagnosis of Hyperlipidemia (ICD E78)?: Yes Weight Mgt (Other Care) Height: 5 ft 1 in Weight:: 167 lb BMI: 31.5
[2024-03-20 10:12] VITALS: BMI 31.5
[2024-03-20 10:18] VITALS: BP 120/46; PULSE 64; O2SAT 96
[2024-03-20 10:48] VITALS: BMI 31.5
== END | disposition home or self-care (01) ==
LOC: CR 09:30
PROVIDERS: PCP Family Medicine; Referring Provider Internal Medicine Cardiovascular Disease; Visit Provider Internal Medicine Cardiovascular Disease
DX: I25.2 Old myocardial infarction

== ENCOUNTER 2024-03-26 17:09 | Emergency (ER) | payer MEDICARE, SELFPAY ==
[2024-03-20 10:48] VITALS: BMI 31.5
[2024-03-26 17:11] VITALS: BP 107/91; PULSE 64; RESP 18; TEMP 36.7; O2SAT 96
[2024-03-26 17:15] VITALS: BMI 30.7
--- NOTE | 2024-03-26 17:23 | CT_ITS ---
EXAM: CT HEAD WITHOUT INTRAVENOUS CONTRAST CLINICAL INDICATION: trauma TECHNIQUE: Multiple axial images were obtained of the head without intravenous contrast. This CT exam was performed using one or more of the following dose reduction techniques: automated exposure control, adjustment of the mA and/or kV according to patient size, and/or use of iterative reconstruction technique. RADIATION DOSE: CTDIvol = 44.99 mGy, DLP = 779.24 mGy-cm. COMPARISON: October 14, 2023. FINDINGS: BRAIN AND EXTRA-AXIAL SPACES: The ventricles appear mildly prominent inferior to the degree of sulcal dilatation over the convexities, similar to prior exam but some degree of normal pressure hydrocephalus cannot be excluded. The sylvian fissures and basilar cisterns are patent. Mild cerebral volume loss. No intra- or extra-axial hemorrhage. No evidence of acute infarct. No intracranial mass or mass effect. There is preservation of the durán/white matter interface. Posterior fossa structures are unremarkable. BONES/JOINTS: See below. SOFT TISSUES: There is a large left forehead scalp hematoma, no underlying skull fracture. VASCULATURE: Moderate cranial carotid calcifications, mild left vertebral artery calcifications. SINUSES: The paranasal sinuses are fully included. MASTOID AIR CELLS: Unremarkable. Clear. ORBITS: Visualized globes, extraocular muscles, optic nerves and retrobulbar fat appear unremarkable. CT/Brain/Head without Contrast IMPRESSION: 1. Large left forehead scalp hematoma. 2. No acute intracranial abnormality. 3. Mild ventriculomegaly is stable from prior exam. The sulci appear relatively narrow, also stable. Normal pressure hydrocephalus cannot be completely excluded in the appropriate clinical setting. Please correlate with the clinical likelihood. Electronically Signed: Ashley Turner MD at 19:28 EDT ,
--- NOTE | 2024-03-26 17:24 | EDS_ITS ---
HPI HPI - Fall History of Present Illness Chief Complaint: Fall Informant: patient and family Narrative Narrative: Patient states she was in her bathroom putting some supplies away up overhead and somehow lost her footing or slipped and fell. No prodromal symptoms. She hit her head against the wall. She did not lose consciousness, but she has a terrible headache and a little nauseated no vomiting. She scraped her left knee but it is not hurting she denies any other injuries. No changes in her vision. She had a stent placed in her heart about a month ago and is on aspirin and clopidogrel. [facility] Medical History Aortic valve disease Hyperlipidemia Type 2 diabetes mellitus Nicotine dependence Obesity (BMI 30.0-34.9) Atherosclerotic heart disease of [place] coronary artery without angina pectoris History of fracture of right ankle Hx of myocardial infarction Chest pain Syncope and collapse Urge incontinence Osteoporosis Morbid obesity Migraine Hernia of abdominal cavity Nonalcoholic liver disease, chronic H/O esophageal reflux History of ankle fracture Uterine cancer Ovarian cancer Heart murmur Hypertension Asthma Home Medications ?Medication ?Instructions ?Recorded ?Last Taken ?Type aspirin 81 mg tablet,delayed 81 mg PO DAILY cholesterol 03/16/23 Unknown History release albuterol sulfate 90 mcg/actuation 2 puff inhalation Q6H PRN asthma 09/15/23 Unknown History aerosol inhaler atorvastatin 40 mg tablet 40 mg PO DAILY cholesterol 09/15/23 Unknown History insulin aspart U-100 100 unit/mL 1 sliding scale dose subcut 09/15/23 Unknown History subcutaneous solution (Novolog USEASDIRECTD diabetes U-100 Insulin aspart) insulin degludec 100 unit/mL (3 13 unit subcut QHS diabetes 09/15/23 Unknown History mL) subcutaneous pen (Tresiba FlexTouch U-100 insulin) losartan 50 mg-hydrochlorothiazide 1 tab PO DAILY BP 09/15/23 Unknown History 12.5 mg tablet oxybutynin chloride 10 mg 10 mg PO DAILY bladder 09/15/23 Unknown History tablet,extended release 24 hr pantoprazole 40 mg tablet,delayed 40 mg PO DAILY reflux 09/15/23 Unknown History release sertraline 50 mg tablet 50 mg PO DAILY depression 09/15/23 Unknown History potassium chloride 10 mEq 10 meq PO DAILY supplement #90 caps 10/11/23 Unknown Rx capsule,extended release vitamins A,C,R-nybr-xeognq 4,296 1 cap PO BID supplement 10/11/23 Unknown History mcg-226 mg-90 mg capsule (PreserVision AREDS) carvedilol 3.125 mg tablet 3.125 mg PO BID #60 tabs 03/01/24 Unknown Rx clopidogrel 75 mg tablet 75 mg PO DAILY #30 tabs 03/01/24 Unknown Rx cholecalciferol (vitamin D3) 125 125 mcg PO BID supplement 03/15/24 Unknown History mcg (5,000 unit) capsule Allergy/AdvReac Type Severity Reaction Status Date / Time matty Allergy Severe Anaphylaxis Verified 03/26/24 17:11 mushroom Allergy Severe Anaphylaxis Verified 03/26/24 17:11 fluconazole (From Diflucan) Allergy Hives Verified 03/26/24 17:11 isosorbide (From Imdur) AdvReac Other Verified 03/26/24 17:11 SURGICAL DIANE Allergy Intermediate INFECTION Uncoded 03/15/24 10:23 Family History (Reviewed 03/15/24 @ 10:51 by Isidro Castellon OCCUPATIONAL THERAPIST PER DIEM, OCCUPATIONAL THERAPIST PER DIEM-C) Other Cancer Hypertension Myocardial infarction Surgical History Stented coronary artery (02/29/24) History of cataract extraction Social History Smoking Status: Current every day smoker tobacco type: cigarettes alcohol intake: never substance use type: does not use caffeine: Yes Type: coffee Number of servings: 1 ROS ROS ED Constitutional Constitutional ED: Denies chills or fever(s) Eyes Eyes: Denies change in vision or diplopia ENT ENT ED: Reports facial pain; Denies ear pain, epistaxis or rhinorrhea Cardiovascular Cardiovascular: Denies chest pain or palpitations Respiratory/Chest Respiratory/Chest: Denies cough or dyspnea Gastrointestinal Gastrointestinal: Reports nausea; Denies abdominal pain, diarrhea, melena or vomiting Genitourinary Genitourinary ED: Denies dysuria or hematuria Musculoskeletal Musculoskeletal: Denies back pain, extremity pain or neck pain Integumentary Reports Abrasions; Denies abscess, laceration or rash Neurologic Neurologic: Reports headache(s); Denies confusion, paresthesias or weakness EXAM Physical Exam Const Vital Signs: 03/26/24 17:10 03/26/24 17:11 03/26/24 19:10 Temperature 98.1 F Temperature Source Temporal Pulse Rate 64 72 Respiratory Rate 18 16 Respiratory Effort Normal Non-Labored Respiratory Depth Normal Respiratory Pattern Normal Blood Pressure 107/91 H 104/88 H Blood Pressure Mean 96 93 Pulse Ox 96 98 Oxygen Delivery Method Room Air Room Air Room Air Positive well nourished and well developed General Appearance ED: well developed and NAD HEENT Reports TM's clear and nasal mucous membranes and turbinates normal HEENT Narrative: Left upper forehead large hematoma, no palpable crepitus or depression but the hematoma is beginning to limit this part of the exam. No other signs of head trauma or facial trauma/injury/tenderness. Midface is stable. No nasal bone tenderness or epistaxis. No Farooq sign, CSF otorhinorrhea, hemotympanum. trauma and hematoma Face and Sinus: facial tenderness Tympanic Membrane ED: Yes TM's clear Eyes PERRL and EOMs intact bilaterally Visual Acuity: other Other Details: no entrapment or pain with extraocular movements Neck full ROM and supple General: Negative for tenderness Chest Wall inspection of chest normal and palpation of chest normal Chest: symmetrical chest wall rise; Negative for crepitus or tenderness Resp normal respiratory effort and clear to auscultation bilaterally Percussion: other equal BS bilat Cardio no murmurs Rate: regular rate Rhythm: regular rhythm GI normal to inspection, nondistended, normoactive bowel sounds, soft to palpation and non-tender Back/Spine normal ROM Cervical Spine: Negative for cervical spine tenderness Thoracic Spine / Upper Back: Negative for thoracic spinal tenderness Lumbar Spine / Lower Back: Negative for lumbar spinal tenderness Extremity normal to inspection and full ROM General Extremety ED: Negative for tenderness Neuro oriented x3, CN's II-XII intact bilaterally, moves all extremities, no focal motor deficits and no sensory deficits noted Zoey Coma Scale: document GCS findings Spontaneous Obeys Commands Oriented 15 Sensorium / Orientation: awake and alert Psych mental status grossly normal and thought process normal Skin no wounds Skin Narrative: Abrasion left knee without tenderness, full range of motion no effusion no bony tenderness. Lesions: no lesions Rashes: no rashes MDM MDM MDM Narrative Medical decision making narrative: CT of the head was obtained in order to rule out intracranial injury, I reviewed the images and report which I agree with, negative for anything acute. Patient reassured, given appropriate instructions for possible concussion, and the fact that this hematoma will probably drain down her face with gravity. She was given Tylenol and Zofran here which helped. Stable for discharge. Radiography Diagnostic Testing: Clinical Impression(s) from Imaging Studies Brain CT 03/26/24 17:23 IMPRESSION: 1. Large left forehead scalp hematoma. 2. No acute intracranial abnormality. 3. Mild ventriculomegaly is stable from prior exam. The sulci appear relatively narrow, also stable. Normal pressure hydrocephalus cannot be completely excluded in the appropriate clinical setting. Please correlate with the clinical likelihood. Electronically Signed: Ashley Turner MD at 19:28 EDT , Discharge Plan Triage Chief Complaint: Fall ED Provider: Savage Carpio Dx/Rx/DC Orders Clinical Impression: Closed head injury without loss of consciousness, Fall from slip, trip, or stumble, Abrasion of knee, left, Traumatic hematoma of forehead Instructions: ED Head Injury (Adult), ED Hematoma Prescriptions: No Action aspirin 81 mg tablet,delayed release (DR/EC) 81 mg PO DAILY pantoprazole 40 mg tablet,delayed release (DR/EC) 40 mg PO DAILY atorvastatin 40 mg tablet 40 mg PO DAILY losartan-hydrochlorothiazide 50-12.5 mg tablet 1 tab PO DAILY insulin degludec [Tresiba FlexTouch U-100] 100 unit/mL (3 mL) insulin pen 13 unit subcut QHS Patient Comments: INJECT 13 UNITS SUBCUTANEOUSLY EVERY DAY AT BEDTIME sertraline 50 mg tablet 50 mg PO DAILY PreserVision AREDS 4,296 mcg-226 mg-90 mg capsule 1 cap PO BID oxybutynin chloride 10 mg tablet extended release 24hr 10 mg PO DAILY insulin aspart U-100 [Novolog U-100 Insulin aspart] 100 unit/mL solution 1 sliding scale dose subcut USEASDIRECTD albuterol sulfate 90 mcg/actuation HFA aerosol inhaler 2 puff inhalation Q6H PRN (Reason: asthma) cholecalciferol (vitamin D3) 125 mcg (5,000 unit) capsule 125 mcg PO BID clopidogrel 75 mg Tablet 75 mg PO DAILY Qty: 30 0RF carvedilol 3.125 mg Tablet 3.125 mg PO BID Qty: 60 0RF potassium chloride 10 mEq capsule, extended release 10 meq PO DAILY Qty: 90 3RF Primary Care Provider: Terri Munoz Referrals: Terri Munoz MD [Primary Care Provider] - 1 Week if not improving (with regards to headache, nausea) Print Language: Marshallese Disposition Disposition: Home, Self Care
[2024-03-26] MEDS: Ondansetron ODT 4 MG Tablet 8 MG PO (17:35)
[2024-03-26] MEDS: Acetaminophen 500 MG Tablet 1000 MG PO (17:35)
[2024-03-26 19:10] VITALS: BP 104/88; PULSE 72; RESP 16; O2SAT 98
[2024-03-26 19:48] VITALS: BP 101/78; PULSE 81; RESP 16; TEMP 36.6; O2SAT 96
== END 2024-03-26 19:49 | disposition home or self-care (01) ==
PROVIDERS: Emergency Provider Emergency Medicine; PCP Family Medicine; Visit Provider Emergency Medicine
DX: S00.83XA Contusion of other part of head, initial encounter (principal); E11.9 Type 2 diabetes mellitus without complications; Z79.4 Long term (current) use of insulin; S80.212A Abrasion, left knee, initial encounter; W01.198A Fall on same level from slipping, tripping and stumbling with subsequent striking against other object, initial encounter; I25.10 Atherosclerotic heart disease of native coronary artery without angina pectoris; I10 Essential (primary) hypertension; E78.5 Hyperlipidemia, unspecified; F17.210 Nicotine dependence, cigarettes, uncomplicated; Z79.82 Long term (current) use of aspirin; Z79.02 Long term (current) use of antithrombotics/antiplatelets; Z79.899 Other long term (current) drug therapy; Z95.5 Presence of coronary angioplasty implant and graft
CPT/HCPCS: 70450; 99282

== ENCOUNTER 2024-04-12 11:15 | Outpatient (RCR) | payer MEDICARE, SELFPAY ==
[2024-03-20 10:48] VITALS: BMI 31.5
== END 2024-04-15 23:59 ==
LOC: CR 11:15
PROVIDERS: PCP Family Medicine; Referring Provider Internal Medicine Cardiovascular Disease; Visit Provider Internal Medicine Cardiovascular Disease
DX: Z95.5 Presence of coronary angioplasty implant and graft (principal); I21.4 Non-ST elevation (NSTEMI) myocardial infarction; I25.10 Atherosclerotic heart disease of native coronary artery without angina pectoris; E78.5 Hyperlipidemia, unspecified; I25.2 Old myocardial infarction; R07.9 Chest pain, unspecified; R55 Syncope and collapse; E11.59 Type 2 diabetes mellitus with other circulatory complications; Z79.4 Long term (current) use of insulin; K76.9 Liver disease, unspecified; I10 Essential (primary) hypertension; R01.1 Cardiac murmur, unspecified
CPT/HCPCS: 93798

== ENCOUNTER 2024-04-12 23:51 | Emergency (ER) | payer MEDICARE, SELFPAY ==
[2024-03-20 10:48] VITALS: BMI 31.5
[2024-04-12 23:51] VITALS: BP 110/46; PULSE 67; RESP 16; TEMP 36.6; O2SAT 92; BMI 32.1
[2024-04-13] VITALS (13 sets, daily range): BP systolic 98–160; BP diastolic 43–68; PULSE 60–85; RESP 13–27; TEMP 36.6; O2SAT 91–98
[2024-04-13] MEDS: Dextrose 10%-Water 250 ML 999 ML IV (00:13)
--- NOTE | 2024-04-13 00:21 | EKG12_ITS ---
Test Reason : Blood Pressure : / mmHG Vent. Rate : 061 BPM Atrial Rate : 061 BPM P-R Int : 142 ms QRS Dur : 142 ms QT Int : 514 ms P-R-T Axes : 055 -54 237 degrees QTc Int : 517 ms Normal sinus rhythm Right bundle branch block Left anterior fascicular block Bifascicular block Minimal voltage criteria for LVH, may be normal variant ( R in aVL ) MARKED T WAVE ABNORMALITY, DIFFUSED T WAVE INVERSION Abnormal ECG Confirmed by DINORA QUEEN, KATE ([id number]), field map editor KAMALJIT KHALIL ([id number]) on 04/16/2024 2:11:02 PM Referred By: Confirmed By:KATE FARIAS MD
[2024-04-13] MEDS: 0.9% Normal Saline (1000mL) 1,000 ML 999 ML IV (00:29)
[2024-04-13 00:31] LABS: Bedside Glucose 53 mg/dL (74-106)
[2024-04-13 00:44] LABS: Absolute Lymphocyte Count 1.05 X10^3/uL (0.83-4.51); Basophil# 0.06 X10^3/uL; Basophil% 0.6 % (0-1); Eosinophil# 0.18 X10^3/uL; Eosinophils% 1.7 % (0-5); Hematocrit 35.7 % (37-47); Hemoglobin 11.2 g/dL (12.0-15.0); Lymphocyte # 1.05 X10^3/ul (0.83-4.51); Lymphocyte % 9.7 % (19-41); Mean Corp Hgb Conc 31.4 g/dL (32-36); Mean Corpuscular Hgb 27.3 pg (27.0-32.0); Mean Corpuscular Volume 86.9 fL (81-99); Mean Platelet Vol. 11.4 fl (6.2-12.0); Monocyte# 0.59 X10^3/uL; Monocyte% 5.4 % (0-10); NRBC Flagged by Analyzer 0 % (0-5); Neutrophil # 8.96 X10^3/uL (2.7-7.7); Neutrophil % 82.2 % (47-70); Platelet Count 242 K/mm3 (150-450); RBC Distribution Width CV 14.1 % (11.6-14.6); RBC Distribution Width SD 45.3 fl (35.1-43.9); Red Blood Count 4.11 M/mm3 (4.2-5.4); White Blood Count 10.9 K/mm3 (4.4-11.0)
--- NOTE | 2024-04-13 00:49 | CT_ITS ---
EXAM: CT HEAD WITHOUT INTRAVENOUS CONTRAST CLINICAL INDICATION: AMS TECHNIQUE: Multiple axial images were obtained of the head without intravenous contrast. CTDIvol = ( 44.99 ) mGy, DLP = ( 829.85 ) mGycm This CT exam was performed using one or more of the following dose reduction techniques: automated exposure control, adjustment of the mA and/or kV according to patient size, and/or use of iterative reconstruction technique. COMPARISON: March 26, 2024. FINDINGS: BRAIN AND EXTRA-AXIAL SPACES: Periventricular small vessel ischemic change. No midline shift or hydrocephalus. Diffuse parenchymal atrophy. Posterior fossa structures are unremarkable. Basal cisterns are patent. No acute intracranial hemorrhage, mass effect or edema. No evidence of acute cortical stroke. BONES/JOINTS: Unremarkable. No discrete lytic or blastic abnormalities. VASCULATURE: Atherosclerotic calcifications of the carotid siphons and vertebrobasilar arteries. SINUSES: Unremarkable as visualized. Clear. MASTOID AIR CELLS: Visualized sinuses and mastoid air cells are clear. ORBITS: Visualized globes, extraocular muscles, optic nerves and retrobulbar fat appear unremarkable. CT/Brain/Head without Contrast IMPRESSION: 1. No evidence of acute intracranial pathology. 2. Diffuse involutional changes and chronic ischemic small vessel white matter disease. AIDOC was utilized to assist in identifying pertinent positive findings. Electronically Signed: Franklin Davidson MD at 2:24 EDT ,
[2024-04-13 01:03] LABS: ALB/GLOB Ratio 0.9 RATIO (0.9-2.4); AST(SGOT) 17 U/L (15-37); Alanine Aminotransfer ALT/SGPT 18 U/L (13-56); Albumin, Serum 2.9 g/dL (3.2-5.0); Alkaline Phosphatase 101 U/L (45-117); Anion Gap 4 (5-15); BUN 18 mg/dL (7-18); Calcium,Total 9.1 mg/dL (8.5-10.1); Chloride 104 mmol/L (98-107); Creatinine, Serum 0.72 mg/dL (0.55-1.02); EST Glomerular Filtration Rate 84 mL/min (>60); Est Glom Filt Rate - Afr Amer 102 mL/min (>60); Globulin 3.1 g/dL (2.2-4.2); Glucose 170 mg/dL (74-106); Lipase 19 U/L (13-75); Potassium 3.4 mmol/L (3.5-5.1); Sodium Level 138 mmol/L (136-145); Troponin-I HS 37 pg/mL (3.0-54.0)
[2024-04-13 01:06] LABS: Lactic Acid 1.4 mmol/L (0.4-1.9)
--- NOTE | 2024-04-13 01:20 | RAD_ITS ---
EXAM: XR CHEST, 2 VIEWS CLINICAL INDICATION: hypoglycemia TECHNIQUE: Frontal and lateral views of the chest. COMPARISON: February 29, 2024 FINDINGS: LUNGS AND PLEURAL SPACES: Degenerative changes of the acromioclavicular joints. Pleural parenchymal scarring at the periphery of the left base. No consolidation. No pleural effusion or pneumothorax. HEART: Unremarkable. Cardiac silhouette not enlarged. MEDIASTINUM: Central airways and mediastinal contour are unremarkable. BONES/JOINTS: Small focus of calcium hydroxyapatite crystal deposition disease at the superior aspect of the left humeral head. No acute fracture. SOFT TISSUES: Unremarkable. RAD/Chest PA and Lateral IMPRESSION: 1. No acute cardiopulmonary disease.. 2. Chronic and ancillary findings as above. Electronically Signed: Franklin Davidson MD at 2:29 EDT ,
[2024-04-13 01:55] LABS: Bedside Glucose 105 mg/dL (74-106)
[2024-04-13 03:03] LABS: Troponin-I HS 42 pg/mL (3.0-54.0)
[2024-04-13 03:18] LABS: Mucous, Urine 0 SEEN /hpf (<or=2+)
[2024-04-13 03:20] LABS: Color, Urine Straw (Yellow); Glucose, Dipstick Normal (Normal); Ketone-Dipstick Negative (Negative); Leukocyte Esterase-Dipstick 500 /ul (Negative); Nitrite-Dipstick Positive (Negative); Occult Blood-Urine 50 /ul (Negative); Protein-Dipstick 30 mg/dl (Negative); Urine Bilirubin Dipstick Negative (Negative); Urine Clarity Cloudy (Clear); Urine Urobilinogen Normal (Normal)
[2024-04-13 03:27] LABS: Bacteria 3+ /hpf (None Seen); Red Blood Cells-Urine 0-5 SEEN /hpf (0-5); Squamous Epithelial Cells - UA 0-5 SEEN /hpf (5-10); White Blood Cells 50-100 SEEN /hpf (0-5); Yeast-Urine 1+ /hpf (None Seen)
[2024-04-13] MEDS: Ceftriaxone 1 GM/50 ML BAG IV (03:49)
--- NOTE | 2024-04-13 04:11 | EX.ED.DYSGE1 ---
HPI History of Present Illness Chief Complaint: Hypoglycemia Narrative Narrative: Patient is a 74-year-old female with past medical history of type 2 diabetes, CAD with stent on Plavix not missing doses, migraines, GERD, hypertension who presented to the emergency department with a chief complaint of hypoglycemia. According to patient's family was at bedside and they noted that she took her insulin and ate dinner and right before bed noted to have altered mental status. They noted that her blood glucose was low and states that they attempted to feed her however became concerned when she was not waking pain concerned that she would aspirate if they continue to try to feed her prompting them to call EMS. Per EMS her glucose was noted to be around 48 which they gave dextrose and her glucose returned to 190. Patient states that she has been feeling her normal self prior to this event today and had no other complaints. [facility] Medical History Aortic valve disease Hyperlipidemia Type 2 diabetes mellitus Nicotine dependence Obesity (BMI 30.0-34.9) Atherosclerotic heart disease of [place] coronary artery without angina pectoris History of fracture of right ankle Hx of myocardial infarction Chest pain Syncope and collapse Urge incontinence Osteoporosis Morbid obesity Migraine Hernia of abdominal cavity Nonalcoholic liver disease, chronic H/O esophageal reflux History of ankle fracture Uterine cancer Ovarian cancer Heart murmur Hypertension Asthma Home Medications ?Medication ?Instructions ?Recorded ?Last Taken ?Type aspirin 81 mg tablet,delayed 81 mg PO DAILY cholesterol 03/16/23 Unknown History release albuterol sulfate 90 mcg/actuation 2 puff inhalation Q6H PRN asthma 09/15/23 Unknown History aerosol inhaler atorvastatin 40 mg tablet 40 mg PO DAILY cholesterol 09/15/23 Unknown History insulin aspart U-100 100 unit/mL 1 sliding scale dose subcut 09/15/23 Unknown History subcutaneous solution (Novolog USEASDIRECTD diabetes U-100 Insulin aspart) insulin degludec 100 unit/mL (3 13 unit subcut QHS diabetes 09/15/23 Unknown History mL) subcutaneous pen (Tresiba FlexTouch U-100 insulin) oxybutynin chloride 10 mg 10 mg PO DAILY bladder 09/15/23 Unknown History tablet,extended release 24 hr pantoprazole 40 mg tablet,delayed 40 mg PO DAILY reflux 09/15/23 Unknown History release sertraline 50 mg tablet 50 mg PO DAILY depression 09/15/23 Unknown History potassium chloride 10 mEq 10 meq PO DAILY supplement #90 caps 10/11/23 Unknown Rx capsule,extended release vitamins A,C,F-wrxm-gjknck 4,296 1 cap PO BID supplement 10/11/23 Unknown History mcg-226 mg-90 mg capsule (PreserVision AREDS) carvedilol 3.125 mg tablet 3.125 mg PO BID #60 tabs 03/01/24 Unknown Rx cholecalciferol (vitamin D3) 125 125 mcg PO BID supplement 03/15/24 Unknown History mcg (5,000 unit) capsule clopidogrel 75 mg tablet 75 mg PO DAILY #90 tabs 03/29/24 Unknown Rx cephalexin 500 mg capsule 500 mg PO BID 5 days #10 caps 04/13/24 Unknown Rx losartan 50 mg tablet 50 mg PO DAILY 04/13/24 Unknown History trazodone 50 mg tablet 50 mg PO QHS 04/13/24 Unknown History Allergy/AdvReac Type Severity Reaction Status Date / Time matty Allergy Severe Anaphylaxis Verified 04/12/24 23:52 mushroom Allergy Severe Anaphylaxis Verified 04/12/24 23:52 fluconazole (From Diflucan) Allergy Hives Verified 04/12/24 23:52 isosorbide (From Imdur) AdvReac Other Verified 04/12/24 23:52 SURGICAL DIANE Allergy Intermediate INFECTION Uncoded 03/15/24 10:23 Family History Other Cancer Hypertension Myocardial infarction Surgical History Stented coronary artery (02/29/24) History of cataract extraction Social History Smoking Status: Current every day smoker tobacco type: cigarettes alcohol intake: never substance use type: does not use caffeine: Yes Type: coffee Number of servings: 1 ROS ROS ED ROS Narrative Constitutional: Denies any fevers, chills, headaches, lightness, dizziness, Eyes: Denies change in vision double vision blurry vision Cardiovascular: Denies chest pain or palpitations Respiratory: Denies coughing wheezing shortness of breath Abdomen: Denies abdominal pain nausea vomit diarrhea : Denies any urinary symptoms Neurological: Denies numbness, weakness, tingling Musculoskeletal: Denies back pain Skin: Denies rashes or lesions EXAM Physical Exam Narrative Exam Narrative: General: Patient was lying in bed rest comfortably did not appear to be acute distress Head: Atraumatic, normocephalic Eyes: PERRL bilateral, EOMI bilateral, no conjunctival injection noted Neck: Soft, supple, trachea midline Cardiovascular: Regular rate and rhythm no murmurs gallops rubs noted Respiratory: Clear to auscultation bilaterally no rales rhonchi wheeze noted Abdomen: Soft, nondistended, nontender to palpation, bowel sounds present x 4 Extremities: +5/5 strength noted in the bilateral upper and lower extremities, no pedal edema no exam Neurological: Patient is following commands knew that she was at [facility] years 2023. Patient completed finger-nose test and [id number] test bilaterally difficulty. NIH is 0 GCS 15 Skin: Warm, dry, intact Const Vital Signs: 04/12/24 23:51 04/13/24 00:14 04/13/24 00:15 Temperature 97.8 F Temperature Source Oral Pulse Rate 67 61 60 Respiratory Rate 16 27 H 16 Respiratory Effort Respiratory Pattern Blood Pressure 110/46 L 98/60 Blood Pressure Mean 67 67 Pulse Ox 92 93 93 Oxygen Delivery Method Room Air 04/13/24 00:27 04/13/24 00:27 04/13/24 00:30 Temperature Temperature Source Pulse Rate 61 Respiratory Rate 26 H Respiratory Effort Normal Normal Respiratory Pattern Normal Normal Blood Pressure 101/43 L Blood Pressure Mean 59 Pulse Ox 91 Oxygen Delivery Method 04/13/24 00:45 04/13/24 00:51 04/13/24 01:15 Temperature Temperature Source Pulse Rate 61 63 64 Respiratory Rate 24 H 18 13 Respiratory Effort Respiratory Pattern Blood Pressure 114/46 L 114/46 L 128/57 H Blood Pressure Mean 65 68 78 Pulse Ox 91 91 94 Oxygen Delivery Method Room Air Room Air Room Air 04/13/24 01:30 04/13/24 01:31 04/13/24 02:00 Temperature Temperature Source Pulse Rate 63 66 64 Respiratory Rate 20 H 16 18 Respiratory Effort Respiratory Pattern Blood Pressure 108/47 L 141/68 H Blood Pressure Mean 65 92 Pulse Ox 95 94 98 Oxygen Delivery Method Room Air Room Air 04/13/24 03:00 04/13/24 03:51 04/13/24 04:53 Temperature Temperature Source Pulse Rate 69 68 74 Respiratory Rate 20 H 18 22 H Respiratory Effort Respiratory Pattern Blood Pressure 133/59 H 139/53 H 160/65 H Blood Pressure Mean 83 81 96 Pulse Ox 94 96 95 Oxygen Delivery Method Room Air Room Air Room Air MDM MDM MDM Narrative Medical decision making narrative: Patient is a 74-year-old female who presented to the emergency department chief complaint of hypoglycemia. Patient blood work performed here on the differential diagnose includes but not limited to too much insulin, ACS, pneumonia. Once workup obtained reviewed she will be reevaluated. Patient's glucose was rechecked when she got here was hypoglycemic again therefore she was given more dextrose. Patient's prehospital EKG was reviewed and showed ST depressions in the lateral leads as well as V3. Patient had an EKG immediately repeated upon arrival here to the emergency department which was reviewed and independently interpreted myself which showed ST depressions in leads I to, V3 through V6. I immediately sent this to the dictating machine mechanic Dr. Friedman for his review at 12:53 AM and he reviewed the images and states that since she is not having chest pain and her first troponin was normal that if her second troponin is normal that she can be discharged home and follow-up with cardiology in the outpatient setting. I reviewed the patient's previous cardiology note and I notified the interventionalist of the patient's last cardiology note that showed on a heart catheterization at 02/29/2024 that showed proximal LAD 95% stenosis, proximal OM1 with 70% stenosis and small 1.5 mm vessel. The left main showed 20% ostial stenosis. Ramus showed 50% proximal stenosis. RCA showed 50% proximal and 50% mid stenosis. She underwent a drug-eluting stent at that point time to the proximal LAD. Echocardiogram on 02/29/2024 showed an ejection fraction of 50% with severe apical hypokinesis. Patient's CBC reviewed and showed no evidence leukocytosis white blood count normal at 10.9, hemoglobin stable 11.2, platelet count notably normal at 242. Patient sodium normal at 138, potassium normal 3.4, creatinine normal at 0.72. Patient AST and ALT were normal at 17 and 18 respectively. Patient's troponin was noted to be normal at 37 a delta troponin was obtained normal at 42-1/3 troponin was obtained as well was noted to be normal at 42. Patient's lipase normal at 19. Patient's urinalysis reviewed and showed positive nitrates 500 leukocyte esterase 50-100 white cells with 3+ bacteria she was given a gram of Rocephin for her urinary tract infection. Patient CT head and brain without contrast showed no evidence of acute intracranial pathology diffuse involutional changes chronic ischemic small vessel white matter disease. Patient's chest x-ray reviewed as well and showed no acute cardiopulmonary processes this was reviewed by myself and by radiology. Patient has remained euglycemic here in the emergency department. Once again multiple troponins were checked and I did discuss this case with interventional cardiology who reviewed the EKGs and the patient's case and states that they can follow-up in the outpatient setting with her director zone. The patient was encouraged to follow-up with the cardiology team in outpatient setting and return with worsening symptoms or any concerns. She can also follow-up with her primary care physician outpatient setting. Her and her family member at bedside are agreeable with this plan she would like to go home all question concerns answered she is discharged home in stable condition. Lab Data Labs: Laboratory Results - last 24 hr 04/13/24 04/13/24 04/13/24 00:08 00:35 01:31 WBC 10.9 RBC 4.11 L Hgb 11.2 L Hct 35.7 L MCV 86.9 MCH 27.3 MCHC 31.4 L RDW Std Deviation 45.3 H RDW Coeff of Fatoumata 14.1 Plt Count 242 MPV 11.4 Immature Gran % (Auto) 0.400 Neut % (Auto) 82.2 H Lymph % (Auto) 9.7 L [place] % (Auto) 5.4 Eos % (Auto) 1.7 Baso % (Auto) 0.6 Absolute Neuts (auto) 9.0 H Absolute Lymphs (auto) 1.05 Nucleated RBC % 0 Sodium 138 Potassium 3.4 L Chloride 104 Carbon Dioxide 30.0 Anion Gap 4 L BUN 18 Creatinine 0.72 Estim Creat Clear Calc 61.20 Est GFR (MDRD) Af Amer 102 Est GFR (MDRD) Non-Af 84 BUN/Creatinine Ratio 25.0 H Glucose 170 H Lactic Acid 1.4 Calcium 9.1 Total Bilirubin 0.40 AST 17 ALT 18 Alkaline Phosphatase 101 Troponin I High Sens 37 Total Protein 6.0 L Albumin 2.9 L Globulin 3.1 Albumin/Globulin Ratio 0.9 Lipase 19 Urine Color Urine Clarity Urine pH Ur Specific [place] Urine Protein Urine Glucose (UA) Urine Ketones Urine Occult Blood Urine Nitrite Urine Bilirubin Urine Urobilinogen Ur Leukocyte Esterase Urine RBC Urine WBC Ur Squamous Epith Cells Urine Bacteria Urine Mucus Urine Yeast POC Glucose 53 L 105 04/13/24 04/13/24 04/13/24 02:33 03:12 04:11 WBC RBC Hgb Hct MCV MCH MCHC RDW Std Deviation RDW Coeff of Fatoumata Plt Count MPV Immature Gran % (Auto) Neut % (Auto) Lymph % (Auto) [place] % (Auto) Eos % (Auto) Baso % (Auto) Absolute Neuts (auto) Absolute Lymphs (auto) Nucleated RBC % Sodium Potassium Chloride Carbon Dioxide Anion Gap BUN Creatinine Estim Creat Clear Calc Est GFR (MDRD) Af Amer Est GFR (MDRD) Non-Af BUN/Creatinine Ratio Glucose Lactic Acid Calcium Total Bilirubin AST ALT Alkaline Phosphatase Troponin I High Sens 42 42 Total Protein Albumin Globulin Albumin/Globulin Ratio Lipase Urine Color Straw Urine Clarity Cloudy Urine pH 6.0 Ur Specific [place] 1.010 Urine Protein 30 H Urine Glucose (UA) Normal Urine Ketones Negative Urine Occult Blood 50 H Urine Nitrite Positive H Urine Bilirubin Negative Urine Urobilinogen Normal Ur Leukocyte Esterase 500 H Urine RBC 0-5 SEEN Urine WBC 50-100 SEEN Ur Squamous Epith Cells 0-5 SEEN Urine Bacteria 3+ Urine Mucus 0 SEEN Urine Yeast 1+ POC Glucose Radiography Diagnostic Testing: Clinical Impression(s) from Imaging Studies Brain CT 04/13/24 00:49 IMPRESSION: 1. No evidence of acute intracranial pathology. 2. Diffuse involutional changes and chronic ischemic small vessel white matter disease. AIDOC was utilized to assist in identifying pertinent positive findings. Electronically Signed: Franklin Davidson MD at 2:24 EDT , Chest X-Ray 04/13/24 01:20 IMPRESSION: 1. No acute cardiopulmonary disease.. 2. Chronic and ancillary findings as above. Electronically Signed: Franklin Davidson MD at 2:29 EDT , Discharge Plan Triage Chief Complaint: Hypoglycemia ED Provider: Clinton Winters Dx/Rx/DC Orders Clinical Impression: Hypoglycemia Prescriptions: New cephalexin 500 mg capsule 500 mg PO BID 5 Days Qty: 10 0RF No Action aspirin 81 mg tablet,delayed release (DR/EC) 81 mg PO DAILY pantoprazole 40 mg tablet,delayed release (DR/EC) 40 mg PO DAILY atorvastatin 40 mg tablet 40 mg PO DAILY insulin degludec [Tresiba FlexTouch U-100] 100 unit/mL (3 mL) insulin pen 13 unit subcut QHS Patient Comments: INJECT 13 UNITS SUBCUTANEOUSLY EVERY DAY AT BEDTIME sertraline 50 mg tablet 50 mg PO DAILY PreserVision AREDS 4,296 mcg-226 mg-90 mg capsule 1 cap PO BID oxybutynin chloride 10 mg tablet extended release 24hr 10 mg PO DAILY insulin aspart U-100 [Novolog U-100 Insulin aspart] 100 unit/mL solution 1 sliding scale dose subcut USEASDIRECTD albuterol sulfate 90 mcg/actuation HFA aerosol inhaler 2 puff inhalation Q6H PRN (Reason: asthma) cholecalciferol (vitamin D3) 125 mcg (5,000 unit) capsule 125 mcg PO BID carvedilol 3.125 mg Tablet 3.125 mg PO BID Qty: 60 0RF losartan 50 mg tablet 50 mg PO DAILY trazodone 50 mg tablet 50 mg PO QHS potassium chloride 10 mEq capsule, extended release 10 meq PO DAILY Qty: 90 3RF clopidogrel 75 mg tablet 75 mg PO DAILY Qty: 90 3RF Primary Care Provider: Terri Munoz Referrals: Terri Munoz MD [Primary Care Provider] - Activity Restrictions/Additional Instructions: Follow-up with your primary care physician outpatient setting. Follow-up with your director zone in outpatient setting. Return with worsening symptoms or other concerns. Follow-up on your urine culture result with your primary care physician. Take antibiotics as prescribed these were sent to your pharmacy. Print Language: Lithuanian Disposition Disposition: Home, Self Care
[2024-04-13 05:03] LABS: Troponin-I HS 42 pg/mL (3.0-54.0)
== END 2024-04-13 05:44 | disposition home or self-care (01) ==
PROVIDERS: Emergency Provider Emergency Medicine; PCP Family Medicine; Visit Provider Emergency Medicine
DX: E11.649 Type 2 diabetes mellitus with hypoglycemia without coma (principal); Z79.4 Long term (current) use of insulin; N39.0 Urinary tract infection, site not specified; I25.10 Atherosclerotic heart disease of native coronary artery without angina pectoris; I10 Essential (primary) hypertension; E78.5 Hyperlipidemia, unspecified; I25.2 Old myocardial infarction; Z79.82 Long term (current) use of aspirin; Z79.02 Long term (current) use of antithrombotics/antiplatelets; Z79.899 Other long term (current) drug therapy; Z95.5 Presence of coronary angioplasty implant and graft
CPT/HCPCS: 70450; 71046; 80053; 81001; 82962; 83605; 83690; 84484; 85025; 87077; 87086; 87088; 87186; 93005; 96361; 96365; 96367; 99285; J7050; A4216

== ENCOUNTER → 2024-04-15 | Outpatient (CLI) | payer MEDICARE, SELFPAY ==
[2024-03-20 10:48] VITALS: BMI 31.5
== END | disposition home or self-care (01) ==
LOC: MFPLAB 16:24
PROVIDERS: PCP Family Medicine; Visit Provider Family Medicine
DX: E87.6 Hypokalemia (principal)
CPT/HCPCS: 36415; 84132

== ENCOUNTER 2024-04-17 07:31 | Outpatient (RCR) | payer MEDICARE, SELFPAY ==
[2024-03-20 10:48] VITALS: BMI 31.5
--- NOTE | 2024-04-18 09:15 | CR.ITP_ITS ---
Exercise - Initial Assessment Visit Session #:: 3 Comments:: Pt had fall at home and low BS episode requiring an ED visit since beginning the program, pt also can only attend W/F due to transportation issues Physician Prescribed Exercise Modalities: Treadmill, Rower, Peter Airdyne AD-7, SciFit Stepper, SciFit Pro- II Ergometer and SciFit Lateral [employer] Nutrition - Initial Assessment Weight Mgt (Other Care) Height: 5 ft 1 in Weight:: 167 lb 8 oz BMI: 31.6 BMI (Report if calculated above): 31.6 Core - Initial Assessment Tobacco Use Years Smokin Psychosocial - Initial Assess Target Goals Target Goals Patient Health Questionnaire PHQ-9 Screening 30-Day Re-eval Assessment: 1. Little interest or pleasure in doing things: Nearly every day 2. Feeling down, depressed, or hopeless: Not at all 3. Trouble falling or staying asleep, or sleeping too much: Nearly every day 4. Feeling tired or having little energy: Several days 5. Poor appetite or overeating: Not at all 6. Feeling bad about yourself -- or that you are a failure or have let yourself or your family down: Not at all 7. Trouble concentrating on things, such as reading the newspaper or watching television: Not at all 8. Moving or speaking so slowly that other people could have noticed. Or the opposite - being so fidgety or restless that you have been moving around a lot more than usual: Not at all 9. Thoughts that you would be better off , or of hurting yourself in some way: Not at all How difficult have these problems made it for you to do your work, take care of things at home, or get along with other people?: Somewhat difficult Total Score: 7 Self-Efficacy 6-Item Scale 30-Day Re-eval Assessment: We would like to know how confident you are in doing certain activities. P lease select your confidence level for: Fatigue Select Number: 6 Physical Discomfort or Pain Select Number: 6 Emotional Distress Select Number: 8 Other Symptoms or Health Problems Select Number: 7 Different Tasks and Activities Select Number: 9 Medication Select Number: 9 Total Score:: 7 Nutrition Survey Nutrition Survey Instructions Scoring Instructions Exercise - 30-day Assessment Visit Date of Eval: 04/18/24 Session #:: 3 Comments:: Pt had fall at home and low BS episode requiring an ED visit since beginning the program, pt also can only attend W/F due to transportation issues Physician Prescribed Exercise Modalities: Treadmill, Rower, Peter Airdyne AD-7, SciFit Stepper, SciFit Pro- II Ergometer and SciFit Lateral [place] Frequency: 3x/week for 12 weeks [36 sessions] Intensity: 60-80% of age predicted maximum heart rate reserve Duration: 30 - 45 minutes METs - Progression 0.5-1.0 weekly:: 0.5-1.0 Current METSs:: 3 Target Heart Rate:: 88-103 Target RPE 12-16:: 12-16 Current RPE:: 12 Maximum Excercise HR:: 81 Resting Blood Pressure: 124/62 Maximum Exercise Blood Pressure: 128/56 EKG Type: NSR with BBB, t wave inversion with rare pac/pvc Outcomes & Goals Goals:: Verbalizes understanding of THR, RPE & goal METS by session 6, Documents in home exercise log/reports 30 min aerobic 5 day/wk by DC and Demonstrates accurate pulse taking by DC Intervention & Plan Exercise Program Goals: Instruct on personal THR & RPE, Instruct on MET level & personal MET goal, Show patient to take own pulse /validate performance until accurate and Instruct on home exercise 30-day Reassessments 30 day Reassessments:: Progressing Reassessment Notes & Comments:: Pt able to verbalize understanding of RPE scale and use correctly during exercise sessions, pt instructed on MET level and goals. Physical Activity Home Exercise Physical Activity - Home Exercise: Safe Exercise, Warm-up, Self-monitoring, Cool-Down, Home Exercise > 30 min Daily and Sitting Time <3 hours/daily Outcomes & Goals Outcomes/Goals: Demonstrates correct Warm-up/exercise Cool-Down (S3) if = 2.5 METs, Verbalizes symptoms of exercise intolerance by Session 3 (S3) and Demonstrate safe equipment use (S3) & follows exercise prescrition (6) Intervention & Plan Plan/Intervention: Instruct warm-up & cool-down if exercising at > 2 METs, Instruct on symptoms of exercise intolerance & actions to take, Instruct & monitor on saf and Assess intial functional capacity & safety risk 30-day Reassessments 30 day Reassessments:: Progressing Reassessment Notes & Comments:: Pt able to verbalize symptoms of exercise intolerance. Pt demonstrates the correct warm up for exercising and demonstrates safe use of he equipment. Exercise - 60-day Assessment Physician Prescribed Exercise Modalities: Treadmill, Rower, [place] Airdyne AD-7, SciFit Stepper, SciFit Pro- II Ergometer and SciFit Lateral [place] Exercise - 90-day Assessment Physician Prescribed Exercise Modalities: Treadmill, Rower, [employer] [employer] AD-7, SciFit Stepper, SciFit Pro- II Ergometer and SciFit Lateral [employer] Exercise - Final/Discharge Physician Prescribed Exercise Modalities: Treadmill, Rower, [place] Airdyne AD-7, SciFit Stepper, SciFit Pro- II Ergometer and SciFit Lateral [employer] Nutrition - 30-Day Assessment Program Goals Nutrition Program Goals Patient has diagnosis of Hyperlipidemia (ICD E78)?: Yes Visit Date of Eval: 04/18/24 Session #:: 3 Cholesterol/Lipids (Other Core Measures) Triglycerides (mg/dL): 75 Total Cholesterol (mg/dL): 98 LDL Cholesterol (mg/dL): 44 HDL Cholesterol (mg/dL): 39 Lipid Medication: atorvastatin 40mg daily Determine presence & major risk factors that modify LDL goal: Cigarette smoking, Hypertension or hypertensive medication, Low HDL cholesterol <40 mg/dL* and Fam milan history of premature CHD in Male < 55 years: female <65 yearsFa Outcomes/Goals: Pt IDs own risk factors & lifestyle modifications by Session 10, Verbalizes symptoms of angina & response by session 3. and Pt independently manages Intervention/Plan: Advocate for lipid panel cholesterol medication if applicable, Instruct on personal lipid levels & lipid goals/NCEP guidelines and Instruct on cholesterol Referral to dietitian:: Yes 30-day Reassessments:: Progressing Reassessment Notes & Comments:: Pt with recent lipid panel, pt instructed on lipid level goals and guidelines, pt educated on modifying risk factors that contribute to poor cholesterol, pt attending education classes on high cholesterol and healthy habits Diabetes (Other Core Measures) Diabetes Type: Diagnosis Type II ICD-10 E11 Fasting blood glucose:: 170 Hgb A1C (4.2 -6.3): 9.3 Insulin dependent injection/pump?: Yes Do you monitor your blood sugar at home?: Yes Referral to Diabetic Clinic:: No Outcomes/Goals:: Able to state symptoms of (hypoglycemia), Able to state (proper medication administration) and Able to state (symptoms of high blood sugar) Intervention/Plan:: Instruct on (diet habits to aid in blood sugar control, ) and Instruct on (the ways exercise helps in blood glucose regulation) 30-day Reassessments:: Progressing Reassessment Notes & Comments:: Pt takes BS medications as prescribed and regularly checks her blood sugar at home, pt encouraged to meet with diamond die maker regarding carb controlled diet recommendations, pt attending healthy eating classes Weight Mgt (Other Care) Height: 5 ft 1 in Weight:: 167 lb 8 oz BMI: 31.6 BMI (Report if calculated above): 31.6 Diagnosis Overweight/Obesity BMI> 30% ICD-10 E66: Yes Diagnosis High BMI/Morbid Obesity BMI> 35% ICD-10 Z68: No Outcomes/Goals: Pt sets, maintains & shows weight loss goal & trend during rehab Intervention/Plan: Instruct on ideal BMI & set weight loss goal w/patient, Assist pt to ID & incorporate diet changes for weight loss by S9, Refer to Structured Weight Loss program as appropriate and Encourage goal of using 250- 300dcal per session for weight loss 30 day Reassessments:: Not Met Reassessment Notes & Comments:: Pt educated on incorporating diet changes for weight loss, the importance of exercise in losing weight and maintaining a healthy weight. Healthy Eating Habits Will attend diet classes:: Yes Outcomes/Goals:: Consume diet rich in vegs,fruits,whole grain/high fiber,fish,lean meat and Limit sat/trans fats,cholesterol & added salts & sugars Intervention/Plan:: Assess current eating habits 30-day Reassessments:: Progressing Reassessment Notes & Comments:: Pt attending diet classes and verbalizes understanding of the importance of a well balanced diet for overall health and wellbeing. Education Gave educational materials for:: Signs & symptoms of hypoglycemia, Signs & symptoms of hyperglycemia, Relate diabetes to coronary artery disease and Healthy eating Nutrition - 60-Day Assessment Weight Mgt (Other Care) Height: 5 ft 1 in Weight:: 167 lb 8 oz BMI: 31.6 BMI (Report if calculated above): 31.6 Core - 30-Day Assessment Visit Date of Eval: 04/18/24 Session #:: 3 Medication Compliance Preventative Medication(s):: Aspirin, Clopidogrel/P2Y12 inhibit, Statin/lipid, Beta lashonda and ARB (Angiotensi Rcap) Doesn?t believe in the benefits of treatment?: No Believes medications are unnecessary or harmful?: No Has a concern about medication side effects?: No Expresses concern over the cost of medications?: No Outcomes/Goals: Verbalizes medications,desired effect & common side effects @ DC, Pt self-reports following medication regimen and Keeps card in wallet w/medications listed by DC Interventions/plans: Instruct on medication effects & side effects, Review medication list w/patient every two weeks and Instruct importance of taking meds as ordered & assist problem solving 30-day Reassessments:: Progressing Reassessment Notes & Comments:: Pt takes all medications as prescribed by her physicians, pt has good support group through family to assist in problem solving and following medication regimen. Tobacco Use Tobacco Use: Cigarettes How many cigarettes do you smoke per day?: 5 Years Smokin Do you use smokeless tobacco?: No Outcomes/Goals: Smoking cessation achieved or maintained by discharge and Identify aids/strategies for achieving smoking cessation by session 6 Interventions/plan: Instruct on effects of smoking & provide smoking cessation resource, Assist pt to set quit date & provide encouragement, Assist pt to develop strategies to achieve/maintain quit date and Assist pt w/nicotine replacement & medication for cessation success 30-day Reassessments:: Not Met Reassessment Notes & Comments:: Pt encouraged to decrease cigarette intake and encouraged to utilize the smoking cessation program. Hypertension Hypertension Diagnosis:: Hypertension ICD-10 I10 Resting Blood Pressure:: 124/62 [place] [employer] Hypertension Guidelines Peak Exercise Blood Pressure:: 128/56 Outcomes/Goals: Able to verbalize/achieve optimal blood pressure <130/80 and Incorporates diet changes & exercise for blood pressure control by DC Interventions/plan: Instruct on optimal blood pressure, hypertension & medications and Instruct on effects of sodium, alcohol, stress, exercise &hypertension 30 day Reassessments:: Progressing Reassessment Notes & Comments:: Pt takes BP medications as prescribed, pt understands and verbalizes the effects of sodium and stress on her blood pressure and the importance of exercise in helping to maintain healthy BP Tobacco Cessation Referral Smoking Cessation Referral:: No (pt declines) Individual Education/Counseling:: No Education Schedule Given:: No Core - Final Assessment Hypertension [place] [employer] Hypertension Guidelines Reassessment Notes & Comments:: Pt takes BP medications as prescribed, pt understands and verbalizes the effects of sodium and stress on her blood pressure and the importance of exercise in helping to maintain healthy BP Core - 90 Day Assessment Hypertension [place] [employer] Hypertension Guidelines Reassessment Notes & Comments:: Pt takes BP medications as prescribed, pt understands and verbalizes the effects of sodium and stress on her blood pressure and the importance of exercise in helping to maintain healthy BP Psychosocial - 30-Day Assess VIsit Date of Eval: 04/18/24 Session #:: 3 History of previous Mental disease:: No Target Goals Target Goals Outcomes/Goals: See list Psychosocial Outcomes/Goals:: ID's personal stressors & 2 strategies to manage stress by discharge Intervention/Plan: See List Interventions/Plan:: Assess stressors,coping strategies & signs of derpression on admission, Instruct/assist pt to develop coping & personal stress Mgt strategies, Refer to Behavioral Health if appropriate, Refer to Physician if appropriate and Instruct patient to recognize signs & symptoms of depression 30-day Reassessments: 30 day Reassessments:: Met Reassessment Notes & Comments:: Pt has an excellent support system through family and is attending classes on stress management and coping mechanisms. Psychosocial - 60-Day Assess Target Goals Target Goals Outcomes/Goals: See list Psychosocial Outcomes/Goals:: ID's personal stressors & 2 strategies to manage stress by discharge Psychosocial - 90-Day Assess Target Goals Target Goals Psychosocial - Final Assessmen Target Goals Target Goals Nutrition - 90-Day Assessment Weight Mgt (Other Care) Height: 5 ft 1 in Weight:: 167 lb 8 oz BMI: 31.6 BMI (Report if calculated above): 31.6 Nutrition - Final Assessment Weight Mgt (Other Care) Height: 5 ft 1 in Weight:: 167 lb 8 oz BMI: 31.6 BMI (Report if calculated above): 31.6
[2024-04-18 09:26] VITALS: BP 124/62
[2024-04-18 09:37] VITALS: BP 124/62; BMI 31.6
== END 2024-05-16 23:59 ==
LOC: CR 07:31
PROVIDERS: PCP Family Medicine; Referring Provider Internal Medicine Cardiovascular Disease; Visit Provider Internal Medicine Cardiovascular Disease
DX: I25.10 Atherosclerotic heart disease of native coronary artery without angina pectoris (principal); I21.4 Non-ST elevation (NSTEMI) myocardial infarction; E78.5 Hyperlipidemia, unspecified; I25.2 Old myocardial infarction; R07.9 Chest pain, unspecified; R55 Syncope and collapse; E11.59 Type 2 diabetes mellitus with other circulatory complications; K76.9 Liver disease, unspecified; I10 Essential (primary) hypertension; R01.1 Cardiac murmur, unspecified; Z95.5 Presence of coronary angioplasty implant and graft; Z79.4 Long term (current) use of insulin
CPT/HCPCS: 93798

== ENCOUNTER → 2024-05-24 | Outpatient (CLI) | payer MEDICARE, SELFPAY ==
[2024-04-18 09:37] VITALS: BMI 31.6
[2024-05-20 11:36] VITALS: BMI 31.6
== END | disposition home or self-care (01) ==
LOC: PSN 07:57
PROVIDERS: PCP Family Medicine; Referring Provider Family Medicine; Visit Provider Family Medicine
DX: R06.02 Shortness of breath (principal)
CPT/HCPCS: 94060

== ENCOUNTER 2024-05-27 11:15 | Outpatient (RCR) | payer MEDICARE, SELFPAY ==
[2024-05-17 00:39] VITALS: BP 124/62; BMI 31.5
--- NOTE | 2024-05-24 15:36 | PCM.CR.ITP ---
Exercise - Initial Assessment Physician Prescribed Exercise Modalities: SciFit Stepmalissa Nutrition - Initial Assessment Weight Mgt (Other Care) Height: 5 ft 1 in Weight:: 167 lb BMI: 31.5 Core - Initial Assessment Hypertension Resting Blood Pressure:: 132/54 [place] [employer] Hypertension Guidelines Psychosocial - Initial Assess Target Goals Target Goals Referral to Behavioral Health PS - Interventions: Yes: Attend Stress Management Classes Patient Health Questionnaire PHQ-9 Screening 60-Day Re-eval Assessment: 1. Little interest or pleasure in doing things: Nearly every day 2. Feeling down, depressed, or hopeless: Not at all 3. Trouble falling or staying asleep, or sleeping too much: Nearly every day 4. Feeling tired or having little energy: Several days 5. Poor appetite or overeating: Not at all 6. Feeling bad about yourself -- or that you are a failure or have let yourself or your family down: Not at all 7. Trouble concentrating on things, such as reading the newspaper or watching television: Not at all 8. Moving or speaking so slowly that other people could have noticed. Or the opposite - being so fidgety or restless that you have been moving around a lot more than usual: Not at all 9. Thoughts that you would be better off , or of hurting yourself in some way: Not at all How difficult have these problems made it for you to do your work, take care of things at home, or get along with other people?: Somewhat difficult Total Score: 7 Self-Efficacy 6-Item Scale 60-Day Re-eval Assessment: We would like to know how confident you are in doing certain activities. Please select your confidence level for: Fatigue Select Number: 6 Physical Discomfort or Pain Select Number: 6 Emotional Distress Select Number: 8 Other Symptoms or Health Problems Select Number: 7 Different Tasks and Activities Select Number: 9 Medication Select Number: 9 Total Score:: 7 Nutrition Survey Nutrition Survey Instructions Scoring Instructions Exercise - 30-day Assessment Physician Prescribed Exercise Modalities: TakepinFit Stepper Exercise - 60-day Assessment Visit Date of Eval: 05/24/24 Session #:: 3 Comments:: Pt has not been to CR since 04/12/24. Pt states she fell and blood sugars were out of control. Informed pt she needs to attend CR consistently to get the benefits of exercise. Physician Prescribed Exercise Modalities: [employer] Stepper Frequency: 3x/week for 12 weeks [36 sessions] Intensity: 60-80% of age predicted maximum heart rate reserve Duration: 30 - 45 minutes Current METSs:: 3 Target Heart Rate:: 88-103 Current RPE:: 12 Maximum Excercise HR:: 81 Resting Blood Pressure: 124/62 Maximum Exercise Blood Pressure: 132/54 EKG Type: NSR with BBB with T wave inversion with rare PAC, PVC Outcomes & Goals Goals:: Verbalizes understanding of THR, RPE & goal METS by session 6, Documents in home exercise log/reports 30 min aerobic 5 day/wk by DC, Demonstrates accurate pulse taking by DC and Other additional outcome/goals: see below Intervention & Plan Exercise Program Goals: Instruct on personal THR & RPE, Instruct on MET level & personal MET goal, Show patient to take own pulse /validate performance until accurate, Instruct on home exercise and Other additional plan/int 30-day Reassessments 30 day Reassessments:: Progressing Reassessment Notes & Comments:: Pt will be reoriented to CR 05/27/24. Physical Activity Home Exercise Physical Activity - Home Exercise: Safe Exercise, Warm-up, Self-monitoring, Cool-Down, Home Exercise > 30 min Daily and Sitting Time <3 hours/daily Outcomes & Goals Outcomes/Goals: Demonstrates correct Warm-up/exercise Cool-Down (S3) if = 2.5 METs, Verbalizes symptoms of exercise intolerance by Session 3 (S3), Demonstrate safe equipment use (S3) & follows exercise prescrition (6) and Other: See below Intervention & Plan Plan/Intervention: Instruct warm-up & cool-down if exercising at > 2 METs, Instruct on symptoms of exercise intolerance & actions to take, Instruct & monitor on saf, Assess intial functional capacity & safety risk and Other See below 30-day Reassessments 30 day Reassessments:: Progressing Reassessment Notes & Comments:: Pt will be reoriented to CR 05/27/24. Exercise - 90-day Assessment Physician Prescribed Exercise Modalities: DarFit Stepmalissa Exercise - Final/Discharge Physician Prescribed Exercise Modalities: SciFit Stepper Nutrition - 30-Day Assessment Weight Mgt (Other Care) Height: 5 ft 1 in Weight:: 167 lb BMI: 31.5 Nutrition - 60-Day Assessment Program Goals Nutrition Program Goals Patient has diagnosis of Hyperlipidemia (ICD E78)?: Yes Visit Date of Eval: 05/24/24 Session #:: 3 Cholesterol/Lipids (Other Core Measures) Determine presence & major risk factors that modify LDL goal: Cigarette smoking, Hypertension or hypertensive medication, Low HDL cholesterol <40 mg/dL*, Family history of premature CHD in Male < 55 years: female <65 yearsFa and Age men > 45 years; women >/= 55 years Outcomes/Goals: Pt IDs own risk factors & lifestyle modifications by Session 10, Verbalizes symptoms of angina & response by session 3., Pt independently manages and Other Additional Outcomes/Goals: Intervention/Plan: Advocate for lipid panel cholesterol medication if applicable, Instruct on personal lipid levels & lipid goals/NCEP guidelines, Instruct on cholesterol and Other additional plan/int 30-day Reassessments:: Progressing Reassessment Notes & Comments:: Risk factors and risk factor modification we need to reviewed again with pt. Diabetes (Other Core Measures) Diabetes Type: Diagnosis Type II ICD-10 E11 Insulin dependent injection/pump?: Yes Non-Insulin Dependent?: No Do you monitor your blood sugar at home?: Yes Referral to Diabetic Clinic:: No Weight Mgt (Other Care) Height: 5 ft 1 in Weight:: 167 lb BMI: 31.5 Diagnosis Overweight/Obesity BMI> 30% ICD-10 E66: Yes Diagnosis High BMI/Morbid Obesity BMI> 35% ICD-10 Z68: No Outcomes/Goals: Pt sets, maintains & shows weight loss goal & trend during rehab and Other additional outcomes/goals Intervention/Plan: Instruct on ideal BMI & set weight loss goal w/patient, Assist pt to ID & incorporate diet changes for weight loss by S9, Refer to Structured Weight Loss program as appropriate, Encourage goal of using 250-300dcal per session for weight loss and Other additional plan/interventions 30 day Reassessments:: Progressing Reassessment Notes & Comments:: Pt will be reoriented to CR 05/27/24. Healthy Eating Habits Will attend diet classes:: Yes Outcomes/Goals:: Consume diet rich in vegs,fruits,whole grain/high fiber,fish,lean meat, Limit sat/trans fats,cholesterol & added salts & sugars and Other additional outcome/goals: Intervention/Plan:: Assess current eating habits and Other Additional plan/interventions Reassessment Notes & Comments:: Pt will be reoriented to CR 05/27/24. Education Gave educational materials for:: Signs & symptoms of hypoglycemia, Signs & symptoms of hyperglycemia, Relate diabetes to coronary artery disease and Healthy eating Core - Final Assessment Tobacco Use How many cigarettes do you smoke per day?: 5 Years Smokin Hypertension Resting Blood Pressure:: 132/54 [place] [employer] Hypertension Guidelines Core - 60-Day Assessment Visit Date of Eval: 05/24/24 Session #:: 3 Medication Compliance Preventative Medication(s):: Aspirin, Clopidogrel/P2Y12 inhibit, Statin/lipid, Beta lashonda and ARB (Angiotensi Rcap) H/O mental health issues: depression, anxiety, or addiction?: No Doesn?t believe in the benefits of treatment?: No Believes medications are unnecessary or harmful?: No Has a concern about medication side effects?: No Expresses concern over the cost of medications?: No Outcomes/Goals: Verbalizes medications,desired effect & common side effects @ DC, Pt self-reports following medication regimen, Keeps card in wallet w/medications listed by DC and Other additional outcome/goals: Interventions/plans: Instruct on medication effects & side effects, Review medication list w/patient every two weeks, Instruct importance of taking meds as ordered & assist problem solving and Other additional 30-day Reassessments:: Progressing Reassessment Notes & Comments:: Pt will be reoriented to CR 05/27/24. Tobacco Use Tobacco Use: Cigarettes How many cigarettes do you smoke per day?: 5 Years Smokin 30-day Reassessments:: Not Met Reassessment Notes & Comments:: Pt will be reoriented to CR 05/27/24. Hypertension Resting Blood Pressure:: 124/62 Resting Blood Pressure:: 132/54 [place] [employer] Hypertension Guidelines Peak Exercise Blood Pressure:: 132/54 Outcomes/Goals: Able to verbalize/achieve optimal blood pressure <130/80, Incorporates diet changes & exercise for blood pressure control by DC and Other additional outcomes/goals Interventions/plan: Instruct on optimal blood pressure, hypertension & medications, Instruct on effects of sodium, alcohol, stress, exercise &hypertension and Other additional plan/interventions 30 day Reassessments:: Met Reassessment Notes & Comments:: Pt will be reoriented to CR 05/27/24. Tobacco Cessation Referral Smoking Cessation Referral:: No (declines) Individual Education/Counseling:: No Education Schedule Given:: Yes Psychosocial - 30-Day Assess Target Goals Target Goals Referral to Behavioral Health PS - Interventions: Yes: Attend Stress Management Classes Outcomes/Goals: See list Psychosocial Outcomes/Goals:: ID's personal stressors & 2 strategies to manage stress by discharge and Other Additional outcome/goals: Psychosocial - 60-Day Assess VIsit Date of Eval: 05/24/24 Session #:: 3 History of previous Mental disease:: No Target Goals Target Goals Psychosocial Test Tool Used:: [employer] QOL Cardiac and PHQ-9 Questionnaire phq-9 Severity Referral to Behavioral Health PS - Interventions: Yes: Attend Stress Management Classes Outcomes/Goals: See list Psychosocial Outcomes/Goals:: ID's personal stressors & 2 strategies to manage stress by discharge and Other Additional outcome/goals: Intervention/Plan: See List Interventions/Plan:: Assess stressors,coping strategies & signs of derpression on admission, Instruct/assist pt to develop coping & personal stress Mgt strategies, Refer to Behavioral Health if appropriate, Refer to Physician if appropriate, Instruct patient to recognize signs & symptoms of depression, Instruct patient to recog and Other additional plan/intervention 30-day Reassessments: 30 day Reassessments:: Met Reassessment Notes & Comments:: Pt will be reoriented to CR 05/27/24. Pt denies any psychosocial issues at this time. Psychosocial - 90-Day Assess Target Goals Target Goals Referral to Behavioral Health PS - Interventions: Yes: Attend Stress Management Classes Psychosocial - Final Assessmen Target Goals Target Goals Referral to Behavioral Health PS - Interventions: Yes: Attend Stress Management Classes Nutrition - 90-Day Assessment Weight Mgt (Other Care) Height: 5 ft 1 in Weight:: 167 lb BMI: 31.5 Nutrition - Final Assessment Weight Mgt (Other Care) Height: 5 ft 1 in Weight:: 167 lb BMI: 31.5
[2024-05-24 15:52] VITALS: BP 124/62; BMI 31.5
[2024-05-24 15:56] VITALS: BP 124/62; BP 132/54
== END 2024-06-15 23:59 ==
LOC: CR 11:15
PROVIDERS: PCP Family Medicine; Referring Provider Internal Medicine Cardiovascular Disease; Visit Provider Internal Medicine Cardiovascular Disease
DX: Z95.5 Presence of coronary angioplasty implant and graft (principal); I21.4 Non-ST elevation (NSTEMI) myocardial infarction; I25.10 Atherosclerotic heart disease of native coronary artery without angina pectoris; E78.5 Hyperlipidemia, unspecified; I25.2 Old myocardial infarction; R07.9 Chest pain, unspecified; R55 Syncope and collapse; E11.59 Type 2 diabetes mellitus with other circulatory complications; Z79.4 Long term (current) use of insulin; K76.9 Liver disease, unspecified; I10 Essential (primary) hypertension; R01.1 Cardiac murmur, unspecified
CPT/HCPCS: 93798

== ENCOUNTER 2024-06-21 21:28 | Emergency (ER) | payer MEDICARE, SELFPAY ==
[2024-05-24 15:52] VITALS: BMI 31.5
[2024-06-21 21:29] VITALS: BP 137/94; PULSE 71; RESP 18; TEMP 36.8; O2SAT 96; BMI 30.9
[2024-06-21 21:31] VITALS: BP 137/94; PULSE 62; RESP 18; TEMP 36.8; O2SAT 94
[2024-06-21 22:09] LABS: Absolute Lymphocyte Count 1.76 X10^3/uL (0.83-4.51); Absolute Neutrophil Count 3.1 X10^3/uL (2.0-7.7); Basophil# 0.05 X10^3/uL; Basophil% 0.9 % (0-1); Eosinophil# 0.21 X10^3/uL; Eosinophils% 3.8 % (0-5); Hematocrit 41.6 % (37-47); Hemoglobin 13.3 g/dL (12.0-15.0); Lymphocyte # 1.76 X10^3/ul (0.83-4.51); Lymphocyte % 31.6 % (19-41); Mean Corpuscular Hgb 27.1 pg (27.0-32.0); Mean Corpuscular Volume 84.9 fL (81-99); Mean Platelet Vol. 12.3 fl (6.2-12.0); Monocyte# 0.47 X10^3/uL; Monocyte% 8.4 % (0-10); NRBC Flagged by Analyzer 0 % (0-5); Neutrophil # 3.06 X10^3/uL (2.7-7.7); Neutrophil % 54.9 % (47-70); Platelet Count 208 K/mm3 (150-450); RBC Distribution Width CV 14.4 % (11.6-14.6); RBC Distribution Width SD 44.6 fl (35.1-43.9); White Blood Count 5.6 K/mm3 (4.4-11.0)
--- NOTE | 2024-06-21 22:18 | EKG12_ITS ---
Test Reason : DYSRHYTHMIA Blood Pressure : */* mmHG Vent. Rate : 62 BPM Atrial Rate : 62 BPM P-R Int : 136 ms QRS Dur : 136 ms QT Int : 432 ms P-R-T Axes : 61 -58 -33 degrees QTcB Int : 438 ms Normal sinus rhythm Possible Left atrial enlargement Right bundle branch block Left anterior fascicular block Bifascicular block ns st changes abnormal Confirmed by Priyank Agustin ([id number]), news video editor KAMALJIT KHALIL ([id number]) on 06/24/2024 6:49:16 AM Referred By: Confirmed By: Priyank Agustin
--- NOTE | 2024-06-21 22:18 | EX.ED.DYSGE1 ---
HPI History of Present Illness Chief Complaint: Weakness Narrative Narrative: 74-year-old female past medical history of diabetes, chronic dry mouth, asthma, presents with generalized weakness that she has had for a week or so. She presents via EMS. She states that has been for the last 1 to 2 weeks where she can barely stand. When EMS was called, she states her legs were wobbly. She saw her primary care provider today, and per EMS she has questionable urinary tract infection. She denies fevers or chills, no nausea or vomiting, no abdominal pain. She states that she feels weak in the legs is having difficulty ambulating. She has urinary frequency as well but no hematuria. No diarrhea. [facility] Medical History Aortic valve disease Hyperlipidemia Type 2 diabetes mellitus Nicotine dependence Obesity (BMI 30.0-34.9) Atherosclerotic heart disease of [place] coronary artery without angina pectoris History of fracture of right ankle Hx of myocardial infarction Chest pain Syncope and collapse Urge incontinence Osteoporosis Morbid obesity Migraine Hernia of abdominal cavity Nonalcoholic liver disease, chronic H/O esophageal reflux History of ankle fracture Uterine cancer Ovarian cancer Heart murmur Hypertension Asthma Home Medications ?Medication ?Instructions ?Recorded ?Last Taken ?Type aspirin 81 mg tablet,delayed 81 mg PO DAILY cholesterol 03/16/23 Unknown History release albuterol sulfate 90 mcg/actuation 2 puff inhalation Q6H PRN asthma 09/15/23 Unknown History aerosol inhaler atorvastatin 40 mg tablet 40 mg PO DAILY cholesterol 09/15/23 Unknown History insulin aspart U-100 100 unit/mL 1 sliding scale dose subcut 09/15/23 Unknown History subcutaneous solution (Novolog USEASDIRECTD diabetes U-100 Insulin aspart) insulin degludec 100 unit/mL (3 13 unit subcut QHS diabetes 09/15/23 Unknown History mL) subcutaneous pen (Tresiba FlexTouch U-100 insulin) oxybutynin chloride 10 mg 10 mg PO DAILY bladder 09/15/23 Unknown History tablet,extended release 24 hr pantoprazole 40 mg tablet,delayed 40 mg PO DAILY reflux 09/15/23 Unknown History release sertraline 50 mg tablet 50 mg PO DAILY depression 09/15/23 Unknown History potassium chloride 10 mEq 10 meq PO DAILY supplement #90 caps 10/11/23 Unknown Rx capsule,extended release vitamins A,C,R-etnf-qfgkfq 4,296 1 cap PO BID supplement 10/11/23 Unknown History mcg-226 mg-90 mg capsule (PreserVision AREDS) carvedilol 3.125 mg tablet 3.125 mg PO BID #60 tabs 03/01/24 Unknown Rx cholecalciferol (vitamin D3) 125 125 mcg PO BID supplement 03/15/24 Unknown History mcg (5,000 unit) capsule clopidogrel 75 mg tablet 75 mg PO DAILY #90 tabs 03/29/24 Unknown Rx cephalexin 500 mg capsule 500 mg PO BID 5 days #10 caps 04/13/24 Unknown Rx losartan 50 mg tablet 50 mg PO DAILY 04/13/24 Unknown History trazodone 50 mg tablet 50 mg PO QHS 04/13/24 Unknown History Allergy/AdvReac Type Severity Reaction Status Date / Time matty Allergy Severe Anaphylaxis Verified 06/21/24 21:28 mushroom Allergy Severe Anaphylaxis Verified 06/21/24 21:28 fluconazole (From Diflucan) Allergy Hives Verified 06/21/24 21:28 isosorbide (From Imdur) AdvReac Other Verified 06/21/24 21:28 SURGICAL DIANE Allergy Intermediate INFECTION Uncoded 03/15/24 10:23 Family History Other Cancer Hypertension Myocardial infarction Surgical History Stented coronary artery (02/29/24) History of cataract extraction Social History Smoking Status: Current every day smoker tobacco type: cigarettes alcohol intake: never substance use type: does not use caffeine: Yes Type: coffee Number of servings: 1 ROS ROS ED ROS Narrative Constitutional: No fever, no chills. Generalized weakness. HEENT: No sore throat. No neck pain. No loss of vision. No rhinorrhea. Cardiovascular: No chest pain. No palpitations. No pedal edema. Respiratory: No cough, no shortness of breath. Abdominal: No abdominal pain. No nausea. No vomiting. Genitourinary: No dysuria. No hematuria. Positive urinary frequency. Musculoskeletal: No myalgias. No arthralgias. Neurologic: No headaches. No dizziness. No lightheadedness. Unsteady gait, legs feel weak and wobbly. Skin: No rash. No change in color. Psychiatric: No depression. No anxiety. EXAM Physical Exam Narrative Exam Narrative: Afebrile. Vital signs noted. Regular rate and rhythm. Lungs are clear to auscultation bilaterally. Abdomen is soft nontender with normoactive bowel sounds. Neurovascularly intact bilateral lower extremities. Able to raise legs off bed. Neurological examination nonfocal and nonlateralizing. Const Vital Signs: 06/21/24 21:29 06/21/24 21:31 06/21/24 21:32 Temperature 98.2 F 98.2 F Temperature Source Oral Oral Pulse Rate 71 62 Respiratory Rate 18 18 Respiratory Effort Normal Respiratory Pattern Normal Blood Pressure 137/94 H 137/94 H Blood Pressure Mean 108 108 Pulse Ox 96 94 Oxygen Delivery Method Room Air Room Air 06/21/24 22:31 06/21/24 23:00 06/21/24 23:28 Temperature 98.2 F 98.2 F Temperature Source Oral Oral Pulse Rate 59 L 67 64 Respiratory Rate 17 18 18 Respiratory Effort Respiratory Pattern Blood Pressure 157/103 H 157/67 H 145/60 H Blood Pressure Mean 121 97 88 Pulse Ox 97 96 96 Oxygen Delivery Method Room Air Room Air Room Air MDM MDM MDM Narrative Medical decision making narrative: Differential diagnosis includes but not limited to dehydration versus generalized weakness from infectious process such as urinary tract infection versus pneumonia. Baseline laboratories drawn and reviewed. EKG obtained and interpreted by myself independently as normal sinus rhythm at 62 bpm with bifascicular block, no acute ST changes. No STEMI. She has normal white count of 5.6, hemoglobin 13.3, hematocrit 41.6, platelet count normal at 208. I reviewed her BMP, glucose elevated at 181 with BUN 15 and creatinine 0.75, normal sodium and normal potassium. Urinalysis is negative for infection. Patient was able to ambulate with assistance but she did have mild trouble with transfer and standing. I discussed the possibility of placing the patient on observation for PT OT eval and rehab versus [facility] home placement, but she declined. Her family is at the bedside, mainly her sister, who states that she had been at [facility] previously, and they do not want to be admitted and do not want placement. They state that she was at her primary care provider's office today, who is supposed to be arranging home physical therapy. As she does not want to be admitted/observed, she will be discharged to follow-up. They already know that she is a fall risk. Return instructions to the emergency department were reviewed. They are agreeable with the plan. Disposition is discharged home in stable condition. History & Record Review Discussion w/independent historian: Patient and Family Lab Data Attestation: I reviewed the patient's lab results. Labs: Laboratory Results - last 24 hr 06/21/24 06/21/24 21:34 22:41 WBC 5.6 RBC 4.90 Hgb 13.3 Hct 41.6 MCV 84.9 MCH 27.1 MCHC 32.0 RDW Std Deviation 44.6 H RDW Coeff of Fatoumata 14.4 Plt Count 208 MPV 12.3 H Immature Gran % (Auto) 0.400 Neut % (Auto) 54.9 Lymph % (Auto) 31.6 [place] % (Auto) 8.4 Eos % (Auto) 3.8 Baso % (Auto) 0.9 Absolute Neuts (auto) 3.1 Absolute Lymphs (auto) 1.76 Nucleated RBC % 0 Sodium 139 Potassium 3.7 Chloride 105 Carbon Dioxide 29.0 Anion Gap 5 BUN 15 Creatinine 0.75 Estim Creat Clear Calc 57.66 Est GFR (MDRD) Af Amer 98 Est GFR (MDRD) Non-Af 81 BUN/Creatinine Ratio 20.0 Glucose 181 H Calcium 9.4 Urine Color Yellow Urine Clarity Clear Urine pH 7.0 Ur Specific [place] 1.005 Urine Protein Negative Urine Glucose (UA) Normal Urine Ketones Negative Urine Occult Blood 10 H Urine Nitrite Negative Urine Bilirubin Negative Urine Urobilinogen Normal Ur Leukocyte Esterase 100 H Urine RBC 0-5 SEEN Urine WBC 0-5 SEEN Ur Squamous Epith Cells 0 SEEN Urine Bacteria 0 SEEN Urine Mucus 0 SEEN Radiography Diagnostic Testing: Clinical Impression(s) from Imaging Studies Chest X-Ray 06/21/24 22:40 IMPRESSION: No evidence of active intrathoracic disease. Electronically Signed: Delmy Gamboa MD at 23:02 EST , Discharge Plan Triage Chief Complaint: Weakness ED Provider: Augie Linn Dx/Rx/DC Orders Clinical Impression: Generalized weakness, Type 2 diabetes mellitus, Urge incontinence Instructions: ED Weakness (Uncertain Cause) Prescriptions: No Action aspirin 81 mg tablet,delayed release (DR/EC) 81 mg PO DAILY pantoprazole 40 mg tablet,delayed release (DR/EC) 40 mg PO DAILY atorvastatin 40 mg tablet 40 mg PO DAILY insulin degludec [Tresiba FlexTouch U-100] 100 unit/mL (3 mL) insulin pen 13 unit subcut QHS Patient Comments: INJECT 13 UNITS SUBCUTANEOUSLY EVERY DAY AT BEDTIME sertraline 50 mg tablet 50 mg PO DAILY PreserVision AREDS 4,296 mcg-226 mg-90 mg capsule 1 cap PO BID oxybutynin chloride 10 mg tablet extended release 24hr 10 mg PO DAILY insulin aspart U-100 [Novolog U-100 Insulin aspart] 100 unit/mL solution 1 sliding scale dose subcut USEASDIRECTD albuterol sulfate 90 mcg/actuation HFA aerosol inhaler 2 puff inhalation Q6H PRN (Reason: asthma) cholecalciferol (vitamin D3) 125 mcg (5,000 unit) capsule 125 mcg PO BID carvedilol 3.125 mg Tablet 3.125 mg PO BID Qty: 60 0RF losartan 50 mg tablet 50 mg PO DAILY trazodone 50 mg tablet 50 mg PO QHS cephalexin 500 mg capsule 500 mg PO BID 5 Days Qty: 10 0RF potassium chloride 10 mEq capsule, extended release 10 meq PO DAILY Qty: 90 3RF clopidogrel 75 mg tablet 75 mg PO DAILY Qty: 90 3RF Primary Care Provider: Terri Munoz Referrals: Terri Munoz MD [Primary Care Provider] - 3-5 Days if not improving Activity Restrictions/Additional Instructions: Follow-up with home health care/physical therapy as directed by Dr. Munoz. Return with new or worsening symptoms or if you change your mind about placement in a senior living/usp facility/rehab. Print Language: Greek Disposition Disposition: Home, Self Care
[2024-06-21 22:30] LABS: Anion Gap 5 (5-15); BUN 15 mg/dL (7-18); Calcium,Total 9.4 mg/dL (8.5-10.1); Chloride 105 mmol/L (98-107); Creatinine, Serum 0.75 mg/dL (0.55-1.02); EST Glomerular Filtration Rate 81 mL/min (>60); Est Glom Filt Rate - Afr Amer 98 mL/min (>60); Estimated Creatinine Clearance 57.66 ml/min; Glucose 181 mg/dL (74-106); Potassium 3.7 mmol/L (3.5-5.1); Sodium Level 139 mmol/L (136-145)
[2024-06-21 22:31] VITALS: BP 157/103; PULSE 59; RESP 17; TEMP 36.8; O2SAT 97
--- NOTE | 2024-06-21 22:40 | RAD_ITS ---
INDICATION: cough EXAMINATION/TECHNIQUE: X-RAY - XR Chest 1 View AP portable. 10:40 PM COMPARISON: Prior study dated: 04/13/2024 FINDINGS: LINES/DEVICES: None. LUNGS: No consolidation. No pneumothorax. MEDIASTINUM: Aorta is atherosclerotic. CARDIAC SILHOUETTE: Not enlarged. BONES AND SOFT TISSUES: No acute abnormalities. RAD/Chest 1 View (Portable) IMPRESSION: No evidence of active intrathoracic disease. Electronically Signed: Delmy Gamboa MD at 23:02 EST ,
[2024-06-21 22:48] LABS: Bacteria 0 SEEN /hpf (None Seen); Mucous, Urine 0 SEEN /hpf (<or=2+); Squamous Epithelial Cells - UA 0 SEEN /hpf (5-10)
[2024-06-21 23:00] VITALS: BP 157/67; PULSE 67; RESP 18; TEMP 36.8; O2SAT 96
[2024-06-21 23:04] LABS: Color, Urine Yellow (Yellow); Glucose, Dipstick Normal (Normal); Ketone-Dipstick Negative (Negative); Leukocyte Esterase-Dipstick 100 /ul (Negative); Nitrite-Dipstick Negative (Negative); Occult Blood-Urine 10 /ul (Negative); Protein-Dipstick Negative (Negative); Specific Gravity, Urine 1.005 (1.002-1.030); Urine Bilirubin Dipstick Negative (Negative); Urine Clarity Clear (Clear); Urine Urobilinogen Normal (Normal)
[2024-06-21 23:17] LABS: Red Blood Cells-Urine 0-5 SEEN /hpf (0-5); White Blood Cells 0-5 SEEN /hpf (0-5)
[2024-06-21 23:28] VITALS: BP 145/60; PULSE 64; RESP 18; O2SAT 96
[2024-06-22 00:33] VITALS: BP 102/78; PULSE 63; RESP 17; O2SAT 97
[2024-06-22 01:06] VITALS: BP 154/65; PULSE 62; RESP 16; TEMP 36.6; O2SAT 93
== END 2024-06-22 01:16 | disposition home or self-care (01) ==
PROVIDERS: Physician Assistant; Emergency Provider Emergency Medicine; PCP Family Medicine; Visit Provider Emergency Medicine
DX: R53.1 Weakness (principal); E11.9 Type 2 diabetes mellitus without complications; Z79.4 Long term (current) use of insulin; N39.41 Urge incontinence; I25.10 Atherosclerotic heart disease of native coronary artery without angina pectoris; I10 Essential (primary) hypertension; E78.5 Hyperlipidemia, unspecified; J45.909 Unspecified asthma, uncomplicated; I25.2 Old myocardial infarction; F17.210 Nicotine dependence, cigarettes, uncomplicated; Z79.82 Long term (current) use of aspirin; Z79.02 Long term (current) use of antithrombotics/antiplatelets
CPT/HCPCS: 71045; 80048; 81001; 85025; 93005; 99285; P9612; A4216

== ENCOUNTER → 2024-06-21 | Outpatient (CLI) | payer MEDICARE, SELFPAY ==
[2024-05-24 15:52] VITALS: BMI 31.5
[2024-06-21 15:36] LABS: Hemoglobin A1c 9.8 % (3.8-5.6); Vitamin D,25 Hydroxy 32.7 ng/mL
[2024-06-21 15:52] LABS: ALB/GLOB Ratio 1.1 RATIO (0.9-2.4); AST(SGOT) 22 U/L (15-37); Alanine Aminotransfer ALT/SGPT 28 U/L (13-56); Albumin, Serum 3.6 g/dL (3.2-5.0); Alkaline Phosphatase 124 U/L (45-117); Anion Gap 7 (5-15); BUN 11 mg/dL (7-18); Calcium,Total 9.5 mg/dL (8.5-10.1); Chloride 101 mmol/L (98-107); Creatinine, Serum 0.79 mg/dL (0.55-1.02); EST Glomerular Filtration Rate 76 mL/min (>60); Est Glom Filt Rate - Afr Amer 92 mL/min (>60); Globulin 3.3 g/dL (2.2-4.2); Glucose 234 mg/dL (74-106); Protein, Total 6.9 g/dL (6.4-8.2); Sodium Level 136 mmol/L (136-145)
== END | disposition home or self-care (01) ==
LOC: MFPLAB 11:43
PROVIDERS: PCP Family Medicine; Referring Provider Family Medicine; Visit Provider Family Medicine
DX: E11.65 Type 2 diabetes mellitus with hyperglycemia (principal); E87.6 Hypokalemia; R29.6 Repeated falls
CPT/HCPCS: 36415; 80053; 82306; 83036; 84443

== ENCOUNTER → 2024-07-19 | Outpatient (CLI) | payer MEDICARE, SELFPAY ==
[2024-05-24 15:52] VITALS: BMI 31.5
--- NOTE | 2024-07-19 11:00 | LES_PTH ---
PATIENT: OLESYA FLAHERTY LOC: [facility] U#:[id number] AGE/SX: 74/F ROOM: RE07/19/[address]: Terri Munoz MD : 1950 BED: DIS: 07/19/2024 SPEC #: [id number] RECD: 07/19/24 14:59 STATUS: SHYANNE DARCI #: [id number] REAGAN: 07/19/24 11:[address]: Terri Munoz DEPT: SURGICAL PATHOLOGY RECD BY: Priscilla Mcdaniel Tissues: Skin of arm Procedures: Surgery Specimen Level IV HEADER OPERATION: Right arm PRE-OP DIAGNOSIS: Suspicious skin lesion TISSUE SUBMITTED: Right arm lesion MICROSCOPIC DIAGNOSIS Right arm lesion, shave biopsy: Inflamed verrucous keratosis. Solar elastosis. Negative for malignancy. See comment. 07/23/2024 COMMENT The lesion is transected at the deep margin. Complete excision of the lesion is suggested if clinically indicated. MICROSCOPIC DESCRIPTION Slides are reviewed. GROSS DESCRIPTION Received in fixative is one container labeled with the patient's name and designated Right arm. The specimen consists of a shave biopsy of caro-brown skin measuring 0.7 x 0.7 x 0.1cm. The specimen is inked, serially sectioned and submitted entirely in one cassette. 07/22/2024 TC:5 CPT:15158
== END | disposition home or self-care (01) ==
PROVIDERS: PCP Family Medicine; Referring Provider Family Medicine; Visit Provider Family Medicine
DX: L57.0 Actinic keratosis (principal); L57.8 Other skin changes due to chronic exposure to nonionizing radiation
CPT/HCPCS: 88305

== ENCOUNTER 2024-09-02 13:30 | Outpatient (RCR) | payer MEDICARE, SELFPAY ==
[2024-05-24 15:52] VITALS: BMI 31.5
--- NOTE | 2024-08-14 13:51 | HP.PTEVAL_ITS ---
Patient's Visit Information Visit Information Visit Information: OLESYA FLAHERTY is a 74 year old F referred to Physical Therapy by Terri Munoz MD with a diagnosis of Frequent falls. Date of Evaluation: 08/14/24 Physical Therapist: Johnny Flores DPT Visit Plan Frequency: 2x /Week Duration: 6 Weeks Plan: 1) start with BLE strengthening 2) static and dynamic balance 3) endurance training. 4) gait with rollator working on walking further and more stable. Subjective Subjective: Pt. is here today for her initial evaluation with diagnosis of frequent falls. Pt. however reports that she has not fallen in 4 months. Pt. reports feeling like she is weak in her legs and arms. Pt. did have an TN in February 2024 and stint placed. Pt. was unable to fully complete cardiac rehab due to reports of fatigue. Pt. reports falling in her bathroom a few months ago. Pt. walks today with rollator, but reports using cane at home. Pt. lives with her sister and brother in law. Pt. has a ramp and has hand railings in shower as well. Pt. reports no N/T in her legs. Pt. stays at home most of the time. Pt. uses rollator with walking outside. Pt. is hopeful to increase her BLE strength. PMH: R ankle fusion, stint. Objective Objective: POSTURE: Pt. has FH posture, rounded shoulders. PALPATION: Pt. has no pain with palpation of BLEs. NEURO: Pt. has normal sensation in BLEs, Pt. has normal DTR in BLEs ROM: Pt. has normal B knee ROM, limited hip flexion bilaterally and minimal to no mobility in R ankle. MMT: RLE: knee: ext 20.7#, flexion 22.0#, (R ankle fused minimal mobility); hip: flexion 3#, abd 4# LLE: Knee ext 35#, flexion 20.9#; ankle: DF 5/5, PF 4/5; hip flexion 2#, abd 4#. 30sec sit to stand rep test: 6 with use of UEs. TU.8sec with out Ad, CGA. GAIT: pt. ambulates with rollator with flexed posture. SHe does let the rollator get out in front of her at times. Pt. was able to ambulate 224feet with rollator with frequent rest periods (standing) secondary to fatigue. No LOB noted. Balance/Special Test Scores Functional Gait Assessment Score: 10 % Disability: 66.6700 Lower Extremity Functional Score: 40 Goals Goal 1:: LTG: Pt. to be I with HEP. Goal Time Frame: 4-6 Weeks Goal 2:: LTG: Pt. to complete 30sec sit to stand rep test with 12 reps Goal Time Frame: 4-6 Weeks Goal 3:: LTG: Pt. to complete TUG with time less than 20seconds. Goal Time Frame: 4-6 Weeks Goal 4:: LTG: pt. to ambulate 350' with rollator with out mention of fatigue and safe gait pattern. Goal Time Frame: 6-8 Weeks Goal 5:: LTG: Pt. complete FGA with score of greater than 15. Goal Time Frame: 6-8 Weeks Rehabilitation Potential Physical Therapy Diagnosis: Pt. has signs and symptoms of imbalance and BLE weakness. Pt. would benefit from PT to address the above limitations progressing to all previous levels of function. Rehabilitation Potential: Good Anticipated Interventions Patient/Client Instruction: Educate patient on: Condition, Plan of Care, Risk Factors and Benefits of Fitness Program For the Purpose of:: To foster healthy habits, To improve decision making, To facilitate caregiver knowledge, To improve self management, To prevent re- injury, To improve ability to perform tasks related to life management and To improve tolerance to ADL's Therapeutic Exercise to Include: Strength training, Power training, Endurance training, Balance training, Coordination, Agility training, Body mechanics and Gait and locomotor training For the Purpose of:: To decrease pain, To increase ROM, To improve nutrient delivery to tissue, To increase oxygenation perfusion, To improve muscle performance and motor function, To improve ability to perform ADL's, To improve gait and locomotor functions, To improve endurance and To improve balance Text: Thank you for the opportunity to evaluate your patient. For Medicare and Medicare HMO plans, please review the plan of care and approve it. It will need to be FAXED BACK to us at [phone] for Medicare purposes. For Medicare only, by signing this I certify the plan of care. Please let me know if there are questions or concerns regarding this plan of care. Physician Signature: Date:
--- NOTE | 2024-09-27 11:34 | HP.PTDCNRP_ITS ---
Patient Information Patient Information: OLESYA FLAHERTY was seen in my office for initial evaluation on 08/14/24. The following Plan of Care was established for this patient: POC Established Initial Frequency: 2x /Week Initial Duration: 6 Weeks Anticipated Interventions Patient/Client Instruction: Educate patient on: Condition, Plan of Care, Risk Factors and Benefits of Fitness Program For the Purpose of:: To foster healthy habits, To improve decision making, To facilitate caregiver knowledge, To improve self management, To prevent re- injury, To improve ability to perform tasks related to life management and To improve tolerance to ADL's Therapeutic Exercise to Include: Strength training, Power training, Endurance training, Balance training, Coordination, Agility training, Body mechanics and Gait and locomotor training For the Purpose of:: To decrease pain, To increase ROM, To improve nutrient delivery to tissue, To increase oxygenation perfusion, To improve muscle performance and motor function, To improve ability to perform ADL's, To improve gait and locomotor functions, To improve endurance and To improve balance Last Seen Last Seen: This patient was last seen in our office 09/02/24. Pertinent comments regarding their Physical therapy will appear below: Pt. was seen for balance due to frequent falls. Pt. has not been seen in several weeks and has no showed her last 3 appointments. Pt. will be DC from PT at this point in time. At this point I will be discontinuing this patient from physical therapy. I would be happy to see this patient again in the future if found appropriate by the physician. Thank you! Johnny Flores, DPT Balance/Gait/Functional tests Balance/Special Test Scores Functional Gait Assessment Score: 10 % Disability: 66.6700 Lower Extremity Functional Score: 40
== END 2024-09-02 19:00 | disposition home or self-care (01) ==
LOC: PT 13:30
PROVIDERS: PCP Family Medicine; Referring Provider Family Medicine; Visit Provider Family Medicine
DX: R29.6 Repeated falls (principal)
CPT/HCPCS: 97110; 97116; 97161; 97530

== ENCOUNTER → 2024-09-07 | Outpatient (CLI) | payer MEDICARE, SELFPAY ==
[2024-05-24 15:52] VITALS: BMI 31.5
--- NOTE | 2024-09-07 10:00 | RAD_ITS ---
PROCEDURE: LEFT RIBS, NO CHEST X-RAY REASON FOR EXAM: PATIENT FELL ON LEFT RIBS 3-4 DAYS AGO. ANTERIOR LEFT RIB PAIN. TECHNIQUE: Frontal and bilateral oblique views of the left ribs. COMPARISON: None. FINDINGS: No displaced rib fractures are identified. No suspicious lytic or blastic rib lesions. Adjacent lung appear normal. Atherosclerotic and mildly tortuous aorta. Soft tissues unremarkable. RAD/Ribs Unil 2V No CXR IMPRESSION: NO EVIDENCE OF ACUTE RIB FRACTURE OR PNEUMOTHORAX. Reading Location: [facility]
--- NOTE | 2024-09-07 10:00 | RAD_ITS ---
PROCEDURE: Neck soft tissue radiographs REASON FOR EXAM: Pain TECHNIQUE: Two views of the neck soft tissues COMPARISON: None. FINDINGS: See impression RAD/Neck for Soft Tissue IMPRESSION: No prevertebral soft tissue swelling. Epiglottis shadow is within normal limit s. Airway is grossly patent. Moderate multilevel degenerative changes of the cervical spine. No traumatic s ubluxation. Minimal levoscoliosis. Lung apices are clear. Right carotid artery calcifications. Reading Location: [facility]
== END | disposition home or self-care (01) ==
LOC: RAD 09:52
PROVIDERS: PCP Family Medicine; Referring Provider Family Medicine; Visit Provider Family Medicine
DX: S19.9XXA Unspecified injury of neck, initial encounter (principal); S29.9XXA Unspecified injury of thorax, initial encounter; X58.XXXA Exposure to other specified factors, initial encounter
CPT/HCPCS: 70360; 71100

== ENCOUNTER → 2025-04-14 | Outpatient (CLI) | payer MEDICARE, SELFPAY ==
[2024-05-24 15:52] VITALS: BMI 31.5
[2025-04-14 15:54] LABS: Anion Gap 14 (5-15); BUN 11 mg/dL (4-19); BUN/Creat Ratio 17.3 RATIO (10-20); Calcium,Total 10.2 mg/dL (7.6-11.0); Carbon Dioxide 26.1 mmol/L (21.0-32.0); Chloride 99 mmol/L (98-108); Glucose 77 mg/dL (70-99); Potassium 3.6 mmol/L (3.3-5.1)
== END | disposition home or self-care (01) ==
LOC: MFPLAB 11:21
PROVIDERS: PCP Family Medicine; Visit Provider Family Medicine
DX: E87.6 Hypokalemia (principal)
CPT/HCPCS: 36415; 80048

== ENCOUNTER → 2025-05-16 | Outpatient (CLI) | payer MEDICARE, SELFPAY ==
[2024-05-24 15:52] VITALS: BMI 31.5
[2025-05-16 12:25] LABS: AST(SGOT) 20 U/L (<=31); Alanine Aminotransfer ALT/SGPT 14 U/L (<=34); Albumin, Serum 4.2 g/dL (3.4-4.8); Alkaline Phosphatase 131 U/L (35-104); Bilirubin, Direct 0.23 mg/dL (0.00-0.30); Cholesterol 136 mg/dL (<=200); Globulin 3.0 g/dL (2.2-4.2); Low Density Lipoprotein Calc. 60 mg/dL; Triglycerides 134 mg/dL; Very Low Density Lipoprotein 27 mg/dL (5-40); cholesterol:hdl ratio screen 2.57
== END | disposition home or self-care (01) ==
LOC: LAB 11:07
PROVIDERS: PCP Family Medicine; Referring Provider Student in an Organized Health Care Education/Training Program; Visit Provider Student in an Organized Health Care Education/Training Program
DX: E78.5 Hyperlipidemia, unspecified (principal)
CPT/HCPCS: 36415; 80061; 80076

== ENCOUNTER → 2025-06-10 | Outpatient (CLI) | payer MEDICARE, SELFPAY ==
[2024-05-24 15:52] VITALS: BMI 31.5
--- NOTE | 2025-06-10 09:50 | ECHOD_ITS ---
Reason For Study Reason For Study: Procedure This was a 2D Doppler, Color Flow transthoracic echocardiogram. Exam performed in department. Left Ventricle Normal LV size. The left ventricular ejection fraction is 55 %. No regional wall motion abnormalities noted. Right Ventricle Normal RV size. Normal systolic function. Atria Normal left atrium. Normal right atrium. Mitral Valve Bileaflet diffuse mitral valve thickening. Moderate focal mitral valve thickening. Mild-Moderate (1-2+) eccentric mitral valve insufficiency. Tricuspid Valve Normal tricuspid valve. Mild-Moderate (1-2+) tricuspid valve insufficiency. Pulmonary artery systolic pressure is 40 mmHg. Aortic Valve Trisinus/trileaflet aortic valve. Moderate focal aortic valve calcification. Peak aortic valve gradient 64 mmHg. Mean aortic valve gradient 39 mmHg. Moderate to severe aortic stenosis. Mild (1+) aortic valve insufficiency. Great Vessels Normal aortic root. The pulmonary artery is normal size. Inferior vena cava collapse with respiration. Pericardium/Pleural No pericardial effusion. MMode/2D Measurements & Calculations LVIDd: 4.6 cm IVSd: 1.4 cm LVOT diam: 2.0 cm LVIDs: 3.6 cm LVPWd: 1.1 cm LVOT area: 3.0 cm2 FS: 23.3 % Ao root diam: 3.0 cm LAV(MOD-bp): 59.0 ml LVAd ap4: 25.5 cm2 LAV(MOD-bp) Indexed: 34.5 ml/m2 LVLd ap4: 7.2 cm LAV(MOD-sp2): 54.9 ml EDV(MOD-sp4): 75.9 ml LAV(MOD-sp4): 60.6 ml EDV(sp4-el): 76.2 ml LVAs ap4: 15.3 cm2 LVLs ap4: 5.9 cm ESV(MOD-sp4): 34.5 ml ESV(sp4-el): 34.0 ml EF(MOD-sp4): 54.5 % EF(sp4-el): 55.4 % SV(MOD-sp4): 41.4 ml SV(sp4-el): 42.2 ml LA A4 area: 20.0 cm2 SI(MOD-sp4): 24.2 ml/m2 LA dimension(2D): 4.6 cm RA A4 area: 11.6 cm2 Time Measurements MV dec time: 0.31 sec Doppler Measurements & Calculations MV E max matthew: 130.0 cm/sec Lat Peak E' Matthew: 4.5 cm/sec Med Peak E' Matthew: 4.1 cm/sec MV A max matthew: 151.0 cm/sec E/E' lat: 28.8 E/E' med: 31.5 MV E/A: 0.86 MV V2 max: 172.6 cm/sec Ao V2 max: 399.0 cm/sec MV max P.9 mmHg MV dec slope: 419.5 cm/sec2 Ao max P.7 mmHg MV V2 mean: 94.8 cm/sec Ao V2 mean: 297.2 cm/sec MV mean P.2 mmHg Ao mean P.0 mmHg MV V2 VTI: 57.7 cm Ao V2 VTI: 110.1 cm AV (velocity ratio): 0.49 MVA(VTI): 2.8 cm2 MAURICIO(I,D): 1.5 cm2 MAURICIO(V,D): 1.4 cm2 AI max matthew: 462.0 cm/sec LV V1 max: 180.6 cm/sec SV(LVOT): 162.1 ml AI max P.4 mmHg LV V1 max P.0 mmHg AI dec slope: 260.0 cm/sec2 LV V1 mean P.2 mmHg AI P1/2t: 520.3 msec LV V1 mean: 145.8 cm/sec LV V1 VTI: 53.6 cm TR max matthew: 306.2 cm/sec TR max P.5 mmHg ECHO/Echo Complete Interpretation Summary Normal LV size. The left ventricular ejection fraction is 55 %. Moderate focal mitral valve thickening. Mild-Moderate (1-2+) eccentric mitral valve insufficiency. Moderate focal aortic valve calcification. Mean aortic valve gradient 39 mmHg. Mild (1+) aortic valve insufficiency. Moderate to severe aortic stenosis. Ordering Physician: Ralph Rivera Referring Physician: Ralph Rivera Performed By: Breana Cornell RCS
== END | disposition home or self-care (01) ==
PROVIDERS: PCP Family Medicine; Referring Provider Student in an Organized Health Care Education/Training Program; Visit Provider Student in an Organized Health Care Education/Training Program
DX: I35.0 Nonrheumatic aortic (valve) stenosis (principal); I50.20 Unspecified systolic (congestive) heart failure
CPT/HCPCS: 93306